=== PATIENT | male | born 1940 | race Caucasian/White ===

== ENCOUNTER → 2017-09-05 09:15 | Outpatient (CLI) | payer MEDICARE, OTHER, SELFPAY ==
--- NOTE | 2017-09-05 09:45 | RAD_ITS ---
STUDY: X-RAY - ESOPHAGUS (BARIUM SWALLOW) WITH FLUOROSCOPY REASON FOR EXAM: Male, 77 years old. Several year history of dysphagia. TECHNIQUE: 21 view(s) of the esophagus were obtained following swallowing of barium. FLUOROSCOPY TIME (if supplied): (0:41) minutes/seconds COMPARISON: None. FINDINGS: There is no demonstrated esophageal foreign body. There is no demonstrated stricture or mucosal abnormality. Normal gastroesophageal junction, without a demonstrated hiatal hernia. The patient ingested a 12 mm tablet of barium without any difficulty. There is atherosclerotic calcification of the aortic arch with tortuosity of the descending aorta. Normal visualized pulmonary parenchyma. Normal visualized osseous structures of the thorax. RAD/Esophagus Only IMPRESSION: No acute abnormality is seen. Electronically Signed: Reuben Painting MD at 12:58 EST Tel [phone], Service support ,
== END ==
PROVIDERS: Family Provider Family Medicine; PCP Family Medicine; Visit Provider Family Medicine
DX: R13.10 Dysphagia, unspecified (principal)
CPT/HCPCS: 74220

== ENCOUNTER 2017-09-05 10:03 | Outpatient (RCR) | payer MEDICARE, OTHER, SELFPAY ==
[2017-09-05 11:07] LABS: International Normalized Ratio 1.8; Prothrombin Time (Protime)PT. 20.6 SECONDS (11.7-14.9)
== END 2017-09-05 11:00 | disposition home or self-care (01) ==
LOC: LAB 10:03
PROVIDERS: Family Provider Family Medicine; PCP Family Medicine; Visit Provider Internal Medicine Cardiovascular Disease
DX: I48.2 Chronic atrial fibrillation (principal); Z79.01 Long term (current) use of anticoagulants
CPT/HCPCS: 36415; 85610

== ENCOUNTER 2017-10-24 15:11 | Outpatient (RCR) | payer MEDICARE, OTHER, SELFPAY ==
--- NOTE | 2017-10-24 15:16 | RAD_ITS ---
STUDY: X-RAY CHEST REASON FOR EXAM: Male, 77 years old. COPD TECHNIQUE: PA and lateral views of the chest. COMPARISON: August 22, 2016. FINDINGS: Stable elevation of the right hemidiaphragm. There is no visualized acute focal consolidation or pleural effusion. There are stable linear densities in the lingula suggesting scarring or atelectasis. There is no demonstrated pleural abnormality. Normal size heart. Normal mediastinum and evelin. Normal visualized pulmonary arteries. There is atherosclerotic calcification of the aortic arch with tortuosity. There are mild degenerative changes of the visualized thoracic spine. Normal visualized ribs, clavicles, and shoulders. There is no demonstrated abnormality of the visualized soft tissue structures of the upper abdomen. RAD/Chest PA and Lateral IMPRESSION: Stable chest. No visualized acute focal infiltrate. Electronically Signed: Sheila Cross MD at 16:10 EDT Tel , Service support ,
[2017-10-24 18:30] LABS: International Normalized Ratio 2.1
== END 2017-10-24 16:00 | disposition home or self-care (01) ==
LOC: MTLAB 15:11
PROVIDERS: Family Provider Family Medicine; PCP Family Medicine; Visit Provider Internal Medicine Cardiovascular Disease
DX: J44.9 Chronic obstructive pulmonary disease, unspecified (principal); I48.2 Chronic atrial fibrillation; Z79.01 Long term (current) use of anticoagulants
CPT/HCPCS: 36415; 71046; 85610

== ENCOUNTER 2017-11-26 16:49 | Outpatient (RCR) | payer MEDICARE, OTHER, SELFPAY ==
[2017-11-26 17:38] LABS: International Normalized Ratio 2.4; Prothrombin Time (Protime)PT. 26.4 SECONDS (11.7-14.9)
== END 2017-11-26 17:00 | disposition home or self-care (01) ==
LOC: LAB 16:49
PROVIDERS: Family Provider Family Medicine; PCP Family Medicine; Visit Provider Internal Medicine Cardiovascular Disease
DX: I48.2 Chronic atrial fibrillation (principal); Z79.01 Long term (current) use of anticoagulants
CPT/HCPCS: 36415; 85610

== ENCOUNTER → 2017-12-26 16:05 | Outpatient (CLI) | payer MEDICARE, OTHER, SELFPAY ==
[2017-12-26 17:42] LABS: International Normalized Ratio 2.7; Prothrombin Time (Protime)PT. 28.5 SECONDS (11.7-14.9)
[2017-12-26 17:47] LABS: Hematocrit 45.4 % (40-54); Hemoglobin 15.5 g/dl (13.0-16.5); Mean Corp Hgb Conc 34.1 g/gl (32-36); Mean Corpuscular Hgb 34.1 pg (27.0-32.0); Platelet Count 193 K/mm3 (150-450); RBC Distribution Width CV 13.4 % (11.6-14.6); RBC Distribution Width SD 48.7 fl (35.1-43.9); Red Blood Count 4.54 M/mm3 (4.6-6.2); White Blood Count 7.5 K/mm3 (4.4-11.0)
[2017-12-26 17:49] LABS: Scan Indicated on CBC? Y/N NO
[2017-12-26 17:51] LABS: Hemoglobin A1c 5.9 % (4.2-6.3)
[2017-12-26 17:55] LABS: ALB/GLOB Ratio 0.7 RATIO (0.9-2.4); AST(SGOT) 13 U/L (15-37); Alanine Aminotransfer ALT/SGPT 26 U/L (16-61); Albumin, Serum 3.1 g/dL (3.2-5.0); Alkaline Phosphatase 52 U/L (45-117); Anion Gap 9 (5-15); BUN 15 mg/dL (7-18); BUN/Creat Ratio 16.5 RATIO (10-20); Calcium,Total 8.9 mg/dL (8.5-10.1); Chloride 99 mmol/L (98-107); Creatinine, Serum 0.91 mg/dL (0.70-1.30); EST Glomerular Filtration Rate 86 mL/min (>60); Est Glom Filt Rate - Afr Amer 104 mL/min (>60); Globulin 4.2 g/dL (2.2-4.2); Glucose 133 mg/dL (74-106); Potassium 4.5 mmol/L (3.5-5.1); Protein, Total 7.3 g/dL (6.4-8.2); Sodium Level 135 mmol/L (136-145); Thyroid Stim Hormone (TSH) 0.48 uIU/mL (0.358-3.74)
== END ==
PROVIDERS: Internal Medicine Cardiovascular Disease; Family Provider Family Medicine; PCP Family Medicine; Visit Provider Family Medicine
DX: M25.50 Pain in unspecified joint (principal); I48.2 Chronic atrial fibrillation; Z79.01 Long term (current) use of anticoagulants
CPT/HCPCS: 36415; 80053; 82306; 83036; 84443; 85027; 85610

== ENCOUNTER 2018-03-26 10:14 | Outpatient (RCR) | payer MEDICARE, OTHER, SELFPAY ==
[2018-03-26 12:14] LABS: International Normalized Ratio 2.4
[2018-03-26 18:02] LABS: Absolute Lymphocyte Count 1.35 X10^3/ul (0.83-4.51); Absolute Neutrophil Count 3.1 X10^3/uL (2.0-7.7); Basophil# 0.05 X10^3/uL; Basophil% 0.9 % (0-1); Eosinophil# 0.58 X10^3/uL; Eosinophils% 10.4 % (0-5); Hematocrit 44.2 % (40-54); Lymphocyte # 1.35 X10^3/ul (4.0); Lymphocyte % 24.1 % (19-41); Mean Corp Hgb Conc 36.2 g/gl (32-36); Mean Corpuscular Hgb 35.3 pg (27.0-32.0); Mean Corpuscular Volume 97.6 fL (80-94); Monocyte# 0.49 X10^3/uL; Monocyte% 8.8 % (0-10); Neutrophil # 3.12 X10^3/uL (2.7-7.7); Neutrophil % 55.6 % (47-70); Platelet Count 152 K/mm3 (150-450); RBC Distribution Width CV 14.1 % (11.6-14.6); RBC Distribution Width SD 50.6 fl (35.1-43.9); Red Blood Count 4.53 M/mm3 (4.6-6.2); White Blood Count 5.6 K/mm3 (4.4-11.0)
[2018-03-26 18:03] LABS: POSITIVE COUNT NO; POSITIVE DIFFERENTIAL NO; POSITIVE MORPHOLOGY NO
[2018-03-26 18:33] LABS: AST(SGOT) 13 U/L (15-37); Alanine Aminotransfer ALT/SGPT 24 U/L (16-61); Albumin, Serum 3.4 g/dL (3.2-5.0); Alkaline Phosphatase 50 U/L (45-117); Anion Gap 8 (5-15); BUN 17 mg/dL (7-18); BUN/Creat Ratio 23.3 RATIO (10-20); Calcium,Total 8.6 mg/dL (8.5-10.1); Chloride 98 mmol/L (98-107); Cholesterol 200 mg/dL (200); Creatinine, Serum 0.73 mg/dL (0.70-1.30); EST Glomerular Filtration Rate 110 mL/min (>60); Est Glom Filt Rate - Afr Amer 133 mL/min (>60); Globulin 3.5 g/dL (2.2-4.2); Glucose 75 mg/dL (74-106); High Density Lipoprotein 38 mg/dL; Potassium 4.4 mmol/L (3.5-5.1); Protein, Total 6.9 g/dL (6.4-8.2); Sodium Level 133 mmol/L (136-145); Triglycerides 370 mg/dL; Very Low Density Lipoprotein 74 mg/dL (5-40)
== END 2018-03-26 11:00 | disposition home or self-care (01) ==
LOC: LAB 10:14
PROVIDERS: Family Provider Family Medicine; PCP Family Medicine; Visit Provider Internal Medicine Cardiovascular Disease
DX: I48.2 Chronic atrial fibrillation (principal); I10 Essential (primary) hypertension; J44.9 Chronic obstructive pulmonary disease, unspecified; Z79.01 Long term (current) use of anticoagulants
CPT/HCPCS: 36415; 80053; 80061; 85025; 85610

== ENCOUNTER → 2018-03-26 16:49 | Outpatient (CLI) | payer MEDICARE, OTHER, SELFPAY ==
--- NOTE | 2018-03-26 16:52 | RAD_ITS ---
STUDY: X-RAY - LEFT ELBOW REASON FOR EXAM: Male, 77 years old. Pain TECHNIQUE: 3 view(s) of the elbow. COMPARISON: None. FINDINGS: Degenerative spurring of the distal and of the humerus. Normal visualized radius. Prominent olecranon spur of the ulna. Normal radiocapitellar and ulnotrochlear articulations. Focal prominence posterior to the ulna within the soft tissue. RAD/Elbow min 3 Views IMPRESSION: Degenerative changes of the elbow. Electronically Signed: Patrick Wolff DO at 20:24 EDT Tel [phone], Service support ,
== END ==
PROVIDERS: Family Provider Family Medicine; PCP Family Medicine; Visit Provider Surgery
DX: M25.522 Pain in left elbow (principal); D49.2 Neoplasm of unspecified behavior of bone, soft tissue, and skin; I48.2 Chronic atrial fibrillation; I10 Essential (primary) hypertension; J44.9 Chronic obstructive pulmonary disease, unspecified; Z79.01 Long term (current) use of anticoagulants
CPT/HCPCS: 36415; 73080; 80053; 80061; 85025; 85610

== ENCOUNTER 2018-05-28 16:46 | Outpatient (RCR) | payer MEDICARE, OTHER, SELFPAY ==
[2018-05-28 15:45] VITALS: BMI 29.9
[2018-05-28 17:30] LABS: International Normalized Ratio 1.5; Prothrombin Time (Protime)PT. 18.5 SECONDS (11.7-14.9)
== END 2018-06-09 10:51 | disposition home or self-care (01) ==
LOC: LAB 16:46
PROVIDERS: Family Provider Family Medicine; PCP Family Medicine; Referring Provider Internal Medicine Cardiovascular Disease; Visit Provider Internal Medicine Cardiovascular Disease
DX: I48.2 Chronic atrial fibrillation (principal); Z79.01 Long term (current) use of anticoagulants
CPT/HCPCS: 36415; 85610

== ENCOUNTER → 2018-06-11 13:36 | Outpatient (CLI) | payer MEDICARE, OTHER, SELFPAY ==
[2018-05-28 15:45] VITALS: BMI 29.9
--- NOTE | 2018-06-11 13:38 | ECHOD_ITS ---
Reason For Study: AFIB Procedure This was a 2D Doppler, Color Flow transthoracic echocardiogram. The study was technically difficult. Exam performed in department. Left Ventricle Normal LV size. The estimated ejection fraction is 50 %. Left ventricular systolic function is lower limits of normal. Unable to assess diastolic dysfunction due to arrhythmia. No regional wall motion abnormalities noted. Right Ventricle Normal RV size. Normal systolic function. Atria Normal left atrium. Normal right atrium. Mitral Valve Normal mitral valve. Tricuspid Valve Normal tricuspid valve. Mild (1+) tricuspid valve insufficiency. Pulmonary artery systolic pressure is 32 mmHg. Aortic Valve Trisinus/trileaflet aortic valve. Mild focal aortic valve calcification. Pulmonic Valve Normal pulmonic valve. Great Vessels Normal aortic root. The pulmonary artery is normal size. Normal inferior vena cava. Pericardium/Pleural No pericardial effusion. MMode/2D Measurements & Calculations LVIDd: 4.1 cm IVSd: 1.2 cm Ao root diam: 3.3 cm LVIDs: 3.0 cm LVPWd: 1.2 cm RVDd: 3.7 cm FS: 27.5 % LAV(MOD-bp): 54.4 ml LA A4 area: 15.7 cm2 LA dimension(2D): 5.0 cm LAV(MOD-bp) Indexed: 26.6 ml/m2 LAV(MOD-sp2): 56.8 ml LAV(MOD-sp4): 41.1 ml RA A4 area: 19.5 cm2 Time Measurements MV dec time: 0.20 sec Doppler Measurements & Calculations MV E max stephanie: 105.8 cm/sec Ao V2 max: 144.8 cm/sec LV V1 max: 87.2 cm/sec Ao max P.4 mmHg LV V1 max P.1 mmHg PA V2 max: 77.9 cm/sec PI end-d stephanie: 93.3 cm/sec TR max stephanie: 265.4 cm/sec TR max P.6 mmHg Interpretation Summary Normal LV size. The estimated ejection fraction is 50 %. Left ventricular systolic function is lower limits of normal. Unable to assess diastolic dysfunction due to arrhythmia. Ordering Physician: Javier Vasquez Referring Physician: HELLEN ESCAMILLA Performed By: Mamie Cordero, DARIUS, RVT
== END ==
PROVIDERS: Family Provider Family Medicine; PCP Family Medicine; Referring Provider Internal Medicine Cardiovascular Disease; Visit Provider Internal Medicine Cardiovascular Disease
DX: I50.32 Chronic diastolic (congestive) heart failure (principal); I48.2 Chronic atrial fibrillation; Z79.01 Long term (current) use of anticoagulants
CPT/HCPCS: 36415; 85610; 93306

== ENCOUNTER 2018-06-11 14:38 | Outpatient (RCR) | payer MEDICARE, OTHER, SELFPAY ==
[2018-06-11 17:25] LABS: Prothrombin Time (Protime)PT. 22.3 SECONDS (11.7-14.9)
== END 2018-06-11 15:00 | disposition home or self-care (01) ==
LOC: LAB 14:38
PROVIDERS: Family Provider Family Medicine; PCP Family Medicine; Referring Provider Internal Medicine Cardiovascular Disease; Visit Provider Internal Medicine Cardiovascular Disease
DX: I48.2 Chronic atrial fibrillation (principal); Z79.01 Long term (current) use of anticoagulants
CPT/HCPCS: 36415; 85610

== ENCOUNTER 2018-07-10 16:08 | Outpatient (RCR) | payer MEDICARE, OTHER, SELFPAY ==
[2018-07-10 15:06] VITALS: BMI 29.9
[2018-07-10 17:54] LABS: Absolute Lymphocyte Count 1.41 X10^3/ul (0.83-4.51); Absolute Neutrophil Count 3.2 X10^3/uL (2.0-7.7); Basophil# 0.04 X10^3/uL; Basophil% 0.7 % (0-1); Eosinophil# 0.53 X10^3/uL; Eosinophils% 9.4 % (0-5); Hematocrit 47.9 % (40-54); Hemoglobin 15.9 g/dl (13.0-16.5); Lymphocyte # 1.41 X10^3/ul (4.0); Lymphocyte % 24.9 % (19-41); Mean Corp Hgb Conc 33.2 g/gl (32-36); Mean Corpuscular Hgb 33.6 pg (27.0-32.0); Mean Corpuscular Volume 101.3 fL (80-94); Mean Platelet Vol. 11.3 fl (6.2-12.0); Monocyte# 0.46 X10^3/uL; Monocyte% 8.1 % (0-10); Neutrophil # 3.21 X10^3/uL (2.7-7.7); Neutrophil % 56.7 % (47-70); Platelet Count 161 K/mm3 (150-450); RBC Distribution Width CV 14.1 % (11.6-14.6); RBC Distribution Width SD 52.3 fl (35.1-43.9); Red Blood Count 4.73 M/mm3 (4.6-6.2); White Blood Count 5.7 K/mm3 (4.4-11.0)
[2018-07-10 17:55] LABS: POSITIVE COUNT NO; POSITIVE DIFFERENTIAL NO; POSITIVE MORPHOLOGY NO
[2018-07-10 18:07] LABS: International Normalized Ratio 2.1; Prothrombin Time (Protime)PT. 23.8 SECONDS (11.7-14.9)
[2018-07-10 18:19] LABS: AST(SGOT) 14 U/L (15-37); Alanine Aminotransfer ALT/SGPT 26 U/L (16-61); Albumin, Serum 3.5 g/dL (3.2-5.0); Alkaline Phosphatase 50 U/L (45-117); Anion Gap 7 (5-15); BUN 12 mg/dL (7-18); BUN/Creat Ratio 16.2 RATIO (10-20); Calcium,Total 8.9 mg/dL (8.5-10.1); Chloride 100 mmol/L (98-107); Creatinine, Serum 0.74 mg/dL (0.70-1.30); EST Glomerular Filtration Rate 108 mL/min (>60); Est Glom Filt Rate - Afr Amer 131 mL/min (>60); Globulin 3.5 g/dL (2.2-4.2); Glucose 74 mg/dL (74-106); Potassium 4.5 mmol/L (3.5-5.1); Sodium Level 138 mmol/L (136-145); Thyroid Stim Hormone (TSH) 0.62 uIU/mL (0.358-3.74)
[2018-07-10 18:41] LABS: Microalbumin,Random Urine 42.3 mg/L (NO RANGE EST.); Microalbumin:Creatinine Ratio 254.8 mg/g CRE (<30 mg/g CRE)
== END 2018-07-10 17:00 | disposition home or self-care (01) ==
LOC: LAB 16:08
PROVIDERS: Family Provider Family Medicine; PCP Family Medicine; Referring Provider Internal Medicine Cardiovascular Disease; Visit Provider Internal Medicine Cardiovascular Disease
DX: I48.2 Chronic atrial fibrillation (principal); Z79.01 Long term (current) use of anticoagulants
CPT/HCPCS: 36415; 80053; 82043; 82570; 84443; 85025; 85610

== ENCOUNTER → 2018-07-21 16:43 | Outpatient (CLI) | payer MEDICARE, OTHER, SELFPAY ==
[2018-07-10 15:06] VITALS: BMI 29.9
[2018-07-21 16:47] LABS: Bacteria 0 SEEN /hpf (None Seen); Mucous, Urine 0 SEEN /hpf (<or=2+)
[2018-07-21 17:44] LABS: Color, Urine Yellow (Yellow); Glucose, Dipstick Normal (Normal); Ketone-Dipstick Negative (Negative); Leukocyte Esterase-Dipstick Negative /ul (Negative); Nitrite-Dipstick Negative (Negative); Occult Blood-Urine Negative /ul (Negative); Protein-Dipstick Negative (Negative); Urine Bilirubin Dipstick Negative (Negative); Urine Clarity Clear (Clear); Urine Urobilinogen Normal (Normal)
[2018-07-21 18:07] LABS: Red Blood Cells-Urine 0-5 SEEN /hpf (0-5); Squamous Epithelial Cells - UA 0-5 SEEN /hpf (0-5)
[2018-07-21 18:08] LABS: White Blood Cells 0-5 SEEN /hpf (0-5)
== END ==
PROVIDERS: Family Provider Family Medicine; PCP Family Medicine; Visit Provider Family Medicine
DX: R80.9 Proteinuria, unspecified (principal)
CPT/HCPCS: 81001; 87086

== ENCOUNTER 2018-10-21 16:25 | Outpatient (RCR) | payer MEDICARE, OTHER, SELFPAY ==
[2018-10-09 14:50] VITALS: BMI 29.9
[2018-10-21 18:10] LABS: International Normalized Ratio 2.4
[2018-10-21 18:31] LABS: AST(SGOT) 17 U/L (15-37); Alanine Aminotransfer ALT/SGPT 23 U/L (16-61); Albumin, Serum 3.4 g/dL (3.2-5.0); Alkaline Phosphatase 67 U/L (45-117); Bilirubin, Direct 0.09 mg/dL (0.00-0.30); Cholesterol 186 mg/dL (200); High Density Lipoprotein 37 mg/dL; Protein, Total 7.4 g/dL (6.4-8.2); Triglycerides 243 mg/dL; Very Low Density Lipoprotein 49 mg/dL (5-40)
== END 2018-11-04 16:00 | disposition home or self-care (01) ==
LOC: LAB 16:25
PROVIDERS: Family Provider Family Medicine; PCP Family Medicine; Referring Provider Internal Medicine Cardiovascular Disease; Visit Provider Internal Medicine Cardiovascular Disease
DX: I48.2 Chronic atrial fibrillation (principal); Z79.01 Long term (current) use of anticoagulants; E78.5 Hyperlipidemia, unspecified
CPT/HCPCS: 36415; 80061; 80076; 85610

== ENCOUNTER → 2018-11-13 17:34 | Outpatient (CLI) | payer MEDICARE, OTHER, SELFPAY ==
--- NOTE | 2018-11-13 | LES_PTH ---
PATIENT: NARESH HOLLIS LOC: [facility] U#:[id number] AGE/SX: 84/M ROOM: RE11/13/[address]: Dr. Ayan Dodd MD : 1940 BED: DIS: SPEC #: [id number] RECD: 11/13/18 17:34 STATUS: DEMETRIA WILLIE #: [id number] DAVIS: 11/13/18 00:[address]: Ayan Dodd DEPT: SURGICAL PATHOLOGY RECD BY: Kartik Stark ENTERED: 11/14/18 09:39 SP TYPE: Lesion OTHR DR: Dr. Marcos Lam MD Tissues: Skin of arm Procedures: Surgery Specimen Level IV HEADER OPERATION: Excision lesion left medial elbow PRE-OP DIAGNOSIS: Enlarged lesion left medial elbow TISSUE SUBMITTED: Left medial elbow MICROSCOPIC DIAGNOSIS Left medial elbow lesion, excisional biopsy: Mild actinic keratosis and solar elastosis. Focal changes suggestive of ruptured and inflamed epidermal inclusion cyst. Negative for malignancy. SJ:art 11/17/18 MICROSCOPIC DESCRIPTION Slides are reviewed. GROSS DESCRIPTION Received in fixative is one container labeled with the patient's name and designated left medial elbow. The specimen consists of multiple fragments of skin and soft tissue that in aggregate measure 2.5 x 2 x 0.3 cm. The entire specimen is submitted in one cassette. / FELIX:art 11/14/18 TC:5 CPT: 12302
[2018-11-13 15:06] VITALS: BMI 29.9
== END ==
PROVIDERS: Family Provider Family Medicine; PCP Family Medicine; Referring Provider Surgery; Visit Provider Surgery
DX: D49.2 Neoplasm of unspecified behavior of bone, soft tissue, and skin (principal); M77.02 Medial epicondylitis, left elbow
CPT/HCPCS: 88305

== ENCOUNTER 2018-12-04 15:43 | Outpatient (RCR) | payer MEDICARE, OTHER, SELFPAY ==
[2018-10-09 14:50] VITALS: BMI 29.9
[2018-11-20 14:51] VITALS: BMI 29.9
[2018-11-20 17:49] LABS: International Normalized Ratio 1.7; Prothrombin Time (Protime)PT. 19.9 SECONDS (11.7-14.9)
[2018-12-05 12:10] LABS: Prothrombin Time Fingerstick 18.2 SEC (11.9-14.4)
== END 2018-12-04 16:45 | disposition home or self-care (01) ==
LOC: LAB 15:43
PROVIDERS: Family Provider Family Medicine; PCP Family Medicine; Referring Provider Internal Medicine Cardiovascular Disease; Visit Provider Internal Medicine Cardiovascular Disease
DX: I48.2 Chronic atrial fibrillation (principal); Z79.01 Long term (current) use of anticoagulants
CPT/HCPCS: 36415; 36416; 85610

== ENCOUNTER 2018-12-24 16:14 | Outpatient (RCR) | payer MEDICARE, OTHER, SELFPAY ==
[2018-12-04 15:10] VITALS: BMI 29.9
[2018-12-11 15:57] VITALS: BMI 29.3
== END 2018-12-24 17:00 | disposition home or self-care (01) ==
LOC: LAB 16:14
PROVIDERS: Family Provider Family Medicine; PCP Family Medicine; Referring Provider Internal Medicine Cardiovascular Disease; Visit Provider Internal Medicine Cardiovascular Disease
DX: I48.2 Chronic atrial fibrillation (principal); Z79.01 Long term (current) use of anticoagulants
CPT/HCPCS: 36415; 85610

== ENCOUNTER → 2019-01-26 | Outpatient (CLI) | payer MEDICARE, OTHER, SELFPAY ==
[2018-12-11 15:57] VITALS: BMI 29.3
[2019-01-26 17:37] LABS: International Normalized Ratio 2.6; Prothrombin Time (Protime)PT. 27.8 SECONDS (11.7-14.9)
== END | disposition home or self-care (01) ==
PROVIDERS: Internal Medicine Cardiovascular Disease; Family Provider Family Medicine; PCP Family Medicine; Visit Provider Family Medicine
DX: I48.2 Chronic atrial fibrillation (principal); Z79.01 Long term (current) use of anticoagulants
CPT/HCPCS: 36415; 85610

== ENCOUNTER → 2019-05-26 15:44 | Outpatient (CLI) | payer MEDICARE, OTHER, SELFPAY ==
[2019-01-29 15:36] VITALS: BMI 29.3
[2019-05-26 17:37] LABS: Hematocrit 47.3 % (40-54); Mean Corp Hgb Conc 33.8 g/dL (32-36); Mean Corpuscular Volume 100.4 fL (80-94); Mean Platelet Vol. 11.2 fl (6.2-12.0); Platelet Count 222 K/mm3 (150-450); RBC Distribution Width CV 13.1 % (11.6-14.6); RBC Distribution Width SD 48.5 fl (35.1-43.9); Red Blood Count 4.71 M/mm3 (4.6-6.2); White Blood Count 6.4 K/mm3 (4.4-11.0)
[2019-05-26 18:02] LABS: ALB/GLOB Ratio 0.9 RATIO (0.9-2.4); AST(SGOT) 14 U/L (15-37); Alanine Aminotransfer ALT/SGPT 24 U/L (16-61); Albumin, Serum 3.5 g/dL (3.2-5.0); Alkaline Phosphatase 51 U/L (45-117); Anion Gap 8 (5-15); BUN 12 mg/dL (7-18); BUN/Creat Ratio 16.5 RATIO (10-20); Calcium,Total 8.7 mg/dL (8.5-10.1); Chloride 95 mmol/L (98-107); Creatinine, Serum 0.73 mg/dL (0.70-1.30); EST Glomerular Filtration Rate 111 mL/min (>60); Est Glom Filt Rate - Afr Amer 134 mL/min (>60); Globulin 3.8 g/dL (2.2-4.2); Glucose 84 mg/dL (74-106); Magnesium 1.9 mg/dL (1.6-2.6); Potassium 4.4 mmol/L (3.5-5.1); Protein, Total 7.3 g/dL (6.4-8.2); Sodium Level 132 mmol/L (136-145); Thyroid Stim Hormone (TSH) 1.01 uIU/mL (0.358-3.74)
[2019-05-26 18:13] LABS: Microalbumin,Random Urine 76.4 mg/L (NO RANGE EST.); Microalbumin:Creatinine Ratio 147.8 mg/g CRE (<30 mg/g CRE)
[2019-06-03 10:35] LABS: Fats, Neutral Normal (.); Fats, Total Normal (.)
== END ==
PROVIDERS: Family Provider Family Medicine; PCP Family Medicine; Referring Provider Family Medicine; Visit Provider Family Medicine
DX: R42 Dizziness and giddiness (principal); I10 Essential (primary) hypertension; R19.7 Diarrhea, unspecified
CPT/HCPCS: 36415; 80053; 82043; 82570; 82705; 83735; 84443; 85027

== ENCOUNTER 2019-05-28 15:05 | Outpatient (RCR) | payer MEDICARE, OTHER, SELFPAY ==
[2018-12-11 15:57] VITALS: BMI 29.3
[2019-01-29 15:36] VITALS: BMI 29.3
--- NOTE | 2019-05-28 15:11 | RAD_ITS ---
STUDY: X-RAY CHEST REASON FOR EXAM: Male, 78 years old. History of COPD. TECHNIQUE: PA and lateral views of the chest. COMPARISON: 10/24/2017. FINDINGS: There is elevation of the right hemidiaphragm. There is mild bilateral basilar atelectasis, remainder of the lungs are clear and expanded. There is no demonstrated pleural abnormality. Normal size heart. Normal mediastinum and evelin. Normal visualized pulmonary arteries. There is atherosclerotic calcification of the aortic arch with tortuosity. There is demineralization of the osseous structures. There is degenerative osteoarthritis of the bilateral shoulders. There is no demonstrated abnormality of the visualized soft tissue structures of the upper abdomen. RAD/Chest PA and Lateral IMPRESSION: Mild bilateral basilar atelectasis, otherwise no acute cardiopulmonary process seen. Electronically Signed: Sherin Hampton MD at 2:13 EST , Service support ,
[2019-05-28 15:52] LABS: International Normalized Ratio 3.2; Prothrombin Time (Protime)PT. 33.1 SECONDS (11.7-14.9)
--- NOTE | 2019-05-28 16:27 | RAD_ITS ---
STUDY: X-RAY - ABDOMEN/PELVIS REASON FOR EXAM: Male, 78 years old. Diarrhea TECHNIQUE: AP supine and upright views of the abdomen and pelvis. COMPARISON: None. FINDINGS: Normal visualized lung bases. Multiple air-fluid levels throughout the small bowel. Gas noted in the colon. Elevated right hemidiaphragm. Possible gallbladder sludge. There is no demonstrated free abdominal air. The visualized liver, spleen and kidneys are grossly normal in size and morphology. Normal soft tissue structures. Normal visualized osseous structures. RAD/Abd Inc Decub and/or Erect IMPRESSION: Ileus. Possible gallbladder sludge versus other soft tissue density right upper quadrant. Electronically Signed: Louie Jorgensen MD at 23:54 EST , Service support ,
[2019-05-28 17:46] LABS: Anion Gap 4 (5-15); BUN 14 mg/dL (7-18); BUN/Creat Ratio 17.2 RATIO (10-20); Calcium,Total 8.9 mg/dL (8.5-10.1); Chloride 96 mmol/L (98-107); Creatinine, Serum 0.82 mg/dL (0.70-1.30); EST Glomerular Filtration Rate 97 mL/min (>60); Est Glom Filt Rate - Afr Amer 117 mL/min (>60); Glucose 91 mg/dL (74-106); Potassium 4.5 mmol/L (3.5-5.1); Sodium Level 133 mmol/L (136-145)
== END 2019-05-28 18:00 | disposition home or self-care (01) ==
LOC: MTLAB 15:05
PROVIDERS: Family Provider Family Medicine; PCP Family Medicine; Referring Provider Internal Medicine Cardiovascular Disease; Visit Provider Internal Medicine Cardiovascular Disease
DX: I48.20 Chronic atrial fibrillation, unspecified (principal); Z79.01 Long term (current) use of anticoagulants; R19.7 Diarrhea, unspecified; R07.9 Chest pain, unspecified
CPT/HCPCS: 36415; 71046; 74019; 80048; 85610

== ENCOUNTER 2019-07-09 15:27 | Outpatient (RCR) | payer MEDICARE, OTHER, SELFPAY ==
[2019-01-29 15:36] VITALS: BMI 29.3
[2019-07-09 15:45] LABS: Prothrombin Time Fingerstick 30.5 SEC (11.9-14.4)
== END 2019-07-09 18:00 | disposition home or self-care (01) ==
LOC: MTLAB 15:27
PROVIDERS: Family Provider Family Medicine; PCP Family Medicine; Referring Provider Internal Medicine Cardiovascular Disease; Visit Provider Internal Medicine Cardiovascular Disease
DX: I48.20 Chronic atrial fibrillation, unspecified (principal); Z79.01 Long term (current) use of anticoagulants
CPT/HCPCS: 36416; 85610

== ENCOUNTER 2019-08-12 14:23 | Outpatient (RCR) | payer MEDICARE, OTHER, SELFPAY ==
[2019-07-16 13:10] VITALS: BMI 29.3
[2019-08-12 15:52] LABS: International Normalized Ratio 2.6; Prothrombin Time (Protime)PT. 27.6 SECONDS (11.7-14.9)
== END 2019-08-12 18:00 | disposition home or self-care (01) ==
LOC: MTLAB 14:23
PROVIDERS: Family Provider Family Medicine; PCP Family Medicine; Referring Provider Internal Medicine Cardiovascular Disease; Visit Provider Internal Medicine Cardiovascular Disease
DX: I48.20 Chronic atrial fibrillation, unspecified (principal); Z79.01 Long term (current) use of anticoagulants
CPT/HCPCS: 36415; 85610

== ENCOUNTER → 2019-11-11 | Outpatient (CLI) | payer MEDICARE, OTHER, SELFPAY ==
[2019-07-16 13:10] VITALS: BMI 29.3
[2019-11-11 17:52] LABS: International Normalized Ratio 2.5; Prothrombin Time (Protime)PT. 26.4 SECONDS (11.7-14.9)
== END | disposition home or self-care (01) ==
LOC: MFPLAB 15:47
PROVIDERS: PCP Family Medicine; Visit Provider Internal Medicine Cardiovascular Disease
DX: I48.20 Chronic atrial fibrillation, unspecified (principal); Z79.01 Long term (current) use of anticoagulants
CPT/HCPCS: 36415; 85610

== ENCOUNTER 2019-12-14 16:29 | Outpatient (RCR) | payer MEDICARE, OTHER, SELFPAY ==
[2019-07-16 13:10] VITALS: BMI 29.3
[2019-12-14 16:45] LABS: Prothrombin Time Fingerstick 24.8 SEC (11.9-14.4)
== END 2019-12-14 18:00 | disposition home or self-care (01) ==
LOC: MTLAB 16:29
PROVIDERS: Family Provider Family Medicine; PCP Family Medicine; Referring Provider Internal Medicine Cardiovascular Disease; Visit Provider Internal Medicine Cardiovascular Disease
DX: I48.20 Chronic atrial fibrillation, unspecified (principal); Z79.01 Long term (current) use of anticoagulants
CPT/HCPCS: 36416; 85610

== ENCOUNTER 2020-03-08 15:56 | Outpatient (RCR) | payer MEDICARE, OTHER, SELFPAY ==
[2019-07-16 13:10] VITALS: BMI 29.3
--- NOTE | 2020-03-08 15:59 | RAD_ITS ---
STUDY: X-RAY - THORACIC SPINE REASON FOR EXAM: Male, 79 years old. BACK PAIN, NO INJURY TECHNIQUE: 2 view(s) of the thoracic spine were obtained. COMPARISON: None. FINDINGS: Normal kyphosis of the thoracic spine. There is no substantial scoliosis. Normal thoracic vertebrae with mild spurring at the endplates. Normal disc space heights. The soft tissue structures are unremarkable. RAD/Thoracic Spine 3 Views IMPRESSION: Degenerative changes of the thoracic spine. Electronically Signed: Patrick Wolff DO at 21:26 EDT Tel [phone], Service support ,
--- NOTE | 2020-03-08 16:00 | RAD_ITS ---
STUDY: X-RAY - LUMBAR SPINE REASON FOR EXAM: Male, 79 years old. LOW BACK PAIN, NO INJURY TECHNIQUE: 4 view(s) of the lumbar spine were obtained. COMPARISON: None FINDINGS: Normal lumbar lordosis. There is no substantial scoliosis. There is a normal alignment of the vertebrae. Normal vertebral bodies with mild spurring at the endplates. Normal disc space heights. The soft tissue structures are unremarkable. Calcified aorta. RAD/L/S Spine Min 4 Views IMPRESSION: Degenerative changes of the lumbar spine. Electronically Signed: Patrick Wolff DO at 21:24 EDT Tel [phone], Service support ,
[2020-03-08 18:02] LABS: Absolute Neutrophil Count 3.7 X10^3/uL (2.0-7.7); Basophil% 1.4 % (0-1); Eosinophil# 1.22 X10^3/uL; Eosinophils% 17.3 % (0-5); Hematocrit 49.4 % (40-54); Hemoglobin 16.2 g/dL (13.0-16.5); Lymphocyte % 21.3 % (19-41); Mean Corp Hgb Conc 32.8 g/dL (32-36); Mean Corpuscular Hgb 32.9 pg (27.0-32.0); Mean Corpuscular Volume 100.2 fL (80-94); Mean Platelet Vol. 11.6 fl (6.2-12.0); Monocyte# 0.52 X10^3/uL; Monocyte% 7.4 % (0-10); NRBC Flagged by Analyzer 0 % (0-5); Neutrophil # 3.68 X10^3/uL (2.7-7.7); Neutrophil % 52.3 % (47-70); Platelet Count 194 K/mm3 (150-450); RBC Distribution Width CV 13.8 % (11.6-14.6); RBC Distribution Width SD 50.9 fl (35.1-43.9); Red Blood Count 4.93 M/mm3 (4.6-6.2)
[2020-03-08 18:23] LABS: ALB/GLOB Ratio 0.9 RATIO (0.9-2.4); AST(SGOT) 15 U/L (15-37); Alanine Aminotransfer ALT/SGPT 23 U/L (16-61); Albumin, Serum 3.6 g/dL (3.2-5.0); Alkaline Phosphatase 60 U/L (45-117); Anion Gap 3 (5-15); BUN 13 mg/dL (7-18); BUN/Creat Ratio 16.4 RATIO (10-20); Chloride 100 mmol/L (98-107); EST Glomerular Filtration Rate 99 mL/min (>60); Est Glom Filt Rate - Afr Amer 120 mL/min (>60); Glucose 95 mg/dL (74-106); Potassium 4.5 mmol/L (3.5-5.1); Protein, Total 7.6 g/dL (6.4-8.2); Sodium Level 133 mmol/L (136-145)
[2020-03-08 18:30] LABS: Erythrocyte Sedimentation Rate 25 mm/hr (0-20)
== END 2020-03-08 18:00 | disposition home or self-care (01) ==
LOC: MTLAB 15:56
PROVIDERS: Family Provider Family Medicine; PCP Family Medicine; Referring Provider Internal Medicine Cardiovascular Disease; Visit Provider Internal Medicine Cardiovascular Disease
DX: R10.9 Unspecified abdominal pain (principal); I48.20 Chronic atrial fibrillation, unspecified; Z79.01 Long term (current) use of anticoagulants; N40.0 Benign prostatic hyperplasia without lower urinary tract symptoms
CPT/HCPCS: 72072; 72110; 80053; 84153; 85025; 85610; 85652

== ENCOUNTER → 2020-03-19 | Outpatient (CLI) | payer MEDICARE, OTHER, SELFPAY ==
[2019-07-16 13:10] VITALS: BMI 29.3
--- NOTE | 2020-03-19 10:15 | RAD_ITS ---
STUDY: X-RAY - THORACIC SPINE REASON FOR EXAM: Male, 79 years old. RT FLANK PAIN. NKI TECHNIQUE: 3 view(s) of the thoracic spine were obtained. COMPARISON: 03/08/2020 FINDINGS: Normal kyphosis of the thoracic spine. There is no substantial scoliosis. Normal thoracic vertebrae and endplates. Normal disc space heights. The soft tissue structures are unremarkable. RAD/Thoracic Spine 2 Views IMPRESSION: Normal x-ray examination of the thoracic spine. Electronically Signed: Alex Marroquin MD at 12:35 EDT Tel , Service support ,
--- NOTE | 2020-03-19 10:15 | US_ITS ---
STUDY: ABDOMINAL ULTRASOUND REASON FOR EXAM: Male, 79 years old. Right upper quadrant pain, right flank pain TECHNIQUE: Transabdominal ultrasound was performed with real-time and static chamberlain scale imaging. TECHNICAL QUALITY: Adequate. COMPARISON: None. FINDINGS: Liver: The liver measures 16.7 cm. There is normal echogenicity of the liver. The bile ducts are within normal limits. There is hepatic color flow. The direction of portal flow is hepatopetal. There is no demonstrated mass lesion. Portal vein measurement: Gallbladder: Normal distended gallbladder. The gallbladder wall measures 2 mm. There is a negative sonographic Chapa''s sign. There is no pericholecystic fluid. There are no gallstones. Common Bile Duct (C.B.D.): The common bile duct measures 5 mm. Pancreas: Not visualized Spleen: Normal size of the spleen. The spleen measures 9.9 x 4.4 x 3.9 cm. Right Kidney: Normal size of the right kidney. The right kidney measures 11.8 x 6.1 x 5.3 cm. Normal renal cortex. The right cortex measures 1.3 cm. There is no demonstrated renal mass or cyst. There is no right hydronephrosis. Left Kidney: Normal size of the left kidney. The left kidney measures 11.5 x 5.4 x 6.1 cm. Normal renal cortex. The left cortex measures 1.6 cm. There is no demonstrated renal mass or cyst. There is no left hydronephrosis. Aorta: 2 cm maximum diameter I.V.C.: The IVC is patent. There is no ascites. US/Abdomen Complete IMPRESSION: Normal abdominal ultrasound examination. Electronically Signed: Dixie Leslie, at 18:49 EDT Tel , Service support ,
== END | disposition home or self-care (01) ==
LOC: US 03-23 11:50
PROVIDERS: PCP Family Medicine; Referring Provider Family Medicine; Visit Provider Family Medicine
DX: R10.9 Unspecified abdominal pain (principal)
CPT/HCPCS: 72070; 76700

== ENCOUNTER 2020-03-23 00:44 | Observation (INO) | payer MEDICARE, OTHER, SELFPAY ==
[2019-07-16 13:10] VITALS: BMI 29.3
[2020-03-23] VITALS (23 sets, daily range): BP systolic 107–193; BP diastolic 49–118; PULSE 74–93; RESP 16–29; TEMP 36.4–36.9; O2SAT 91–100; BMI 28.8; BMI 29.2; BMI 28.0
--- NOTE | 2020-03-23 00:46 | RAD_ITS ---
STUDY: X-RAY CHEST REASON FOR EXAM: Male, 79 years old. sob -- hx of copd TECHNIQUE: Single AP portable view of the chest. COMPARISON: 05/28/2019. FINDINGS: There is chronic elevation of the dome of the right hemidiaphragm. There are no demonstrated acute pulmonary infiltrates. There is no demonstrated pleural abnormality. Normal size heart. Normal mediastinum and evelin. Normal visualized pulmonary arteries. There is atherosclerotic calcification of the aortic arch with tortuosity. There are no visualized acute osseous abnormalities. . There is no demonstrated abnormality of the visualized soft tissue structures of the upper abdomen. RAD/Chest 1 View IMPRESSION: No evidence for acute cardiopulmonary pathology. Electronically Signed: Matthew Parson MD at 2:59 EDT , Service support ,
--- NOTE | 2020-03-23 00:46 | EKG12_ITS ---
Test Reason : DYSRHYTHMIA Blood Pressure : / mmHG Vent. Rate : 074 BPM Atrial Rate : 220 BPM P-R Int : 000 ms QRS Dur : 104 ms QT Int : 366 ms P-R-T Axes : 000 -41 027 degrees QTc Int : 406 ms Atrial fibrillation Left axis deviation Incomplete right bundle branch block Anterior infarct , age undetermined Abnormal ECG Confirmed by MARGE JUAN, NETTE ([id number]), television news video editor CARLENE DENNIS ([id number]) on 03/28/2020 1:18:29 PM Referred By: ANABELLE Confirmed By:SRIDHAR BIRD MD
--- NOTE | 2020-03-23 00:46 | CT_ITS ---
HISTORY: CONFUSION AND BLURRED VISIONHX:HTN,A-FIB,TIA EXAMINATION: CT Head or Brain W/O Contrast Injection TECHNIQUE: Multiple axial images were obtained of the head without intravenous contrast. A radiation dose optimization technique was used for this scan. IV Contrast dosage and agent: None COMPARISON: 04/25/2015 FINDINGS: Normal ventricles. Age-appropriate cerebral cortical atrophy. White matter small vessel chronic ischemic change. No intracranial mass, hemorrhage, or acute parenchymal abnormality. Vertebrobasilar atherosclerotic calcifications and otherwise negative posterior fossa. Bilateral carotid calcifications, as well. No suspicious extra-axial fluid collection. Bilateral mastoids appear clear. Subtotal opacification of the right ethmoid air cells and circumferential mucosal thickening of the right sphenoid and right maxillary sinuses and this represents worsening compared to prior CT. Chronic appearing mucosal thickening and partial opacification of the right frontal, left ethmoid, and left maxillary sinus. CT/Brain/Head without Contrast IMPRESSION: 1. No intracranial hemorrhage or acute intracranial disease identified. 2. White matter small vessel chronic ischemic change and age-appropriate cerebral cortical atrophy. 3. Chronic sinusitis with worsening of ethmoid, maxillary, and sphenoid sinusitis on the right compared to prior. Individualized dose optimization techniques were used for this CT. at 0117 Reported and signed by: Venkat Sebastian MD N.B. : The above information has been verbally conveyed by Venkat Sebastian to er staff, , on 03/23/2020 01:07:30 (ET). Electronically Signed: Venkat Sebastian, at 1:16 EDT Tel , Service support ,
--- NOTE | 2020-03-23 01:04 | ED.VIS.GEN ---
History of Present Illness Chief Complaint: Neuro S/Sx Informant: Patient, Family Narrative: Patient stated that at 11 PM tonight 2 hours ago he developed some spots in his bilateral vision. This happens frequently however per patient for several years quite frequently he will have what he thinks is silent migraines. He has never seen a neurologist or had this diagnosed in the past per patient. These last for short period time approximately 30 minutes and go away. The spots have gone away. His stated that he has been confused at home. He could not remember 1 of the name of his children. He stated he was having hard time naming his pulse ox at home. He has chronic COPD. He stated he is never had a TIA or stroke in the past however when reviewing his history in the computer it appears he has had a TIA remotely. He is on Coumadin for history of atrial fibrillation chronically. He denies any symptoms at this time. All of his symptoms have resolved. He stated it started to clear up before the paramedics came to bring him in. He stated he is back to baseline currently. Denies any weakness in his arms or legs or other stroke symptoms. - Past Medical History (1) Chronic atrial fibrillation Status: Chronic (2) Chronic diastolic (congestive) heart failure Status: Chronic (3) Essential (primary) hypertension Status: Chronic (4) Hyperlipidemia Status: Chronic (5) Hypertriglyceridemia Status: Chronic (6) manager terminal current use of anticoagulant Status: Chronic (7) Severe chronic obstructive pulmonary disease Status: Chronic Past Medical History - Allergies and Home Meds Allergies/Adverse Reactions: Allergies amlodipine [From Norvasc] Adverse Reaction (Verified 03/23/20 00:58) elevated bilirubin disopyramide phosphate [From Norpace] Adverse Reaction (Verified 03/23/20 00:58) Other STOOL TURNS WHITE AND BILIRUBIN WENT WAY UP metoprolol Adverse Reaction (Verified 03/23/20 00:58) SOB Primary Care Physician: Marcos Lam MD [Primary Care Provider] - Prior records reviewed: Yes Past Medical History: - - See problem list Surgical History: arthroscopy, knee, cataract, herniorrhaphy - inguinal, rotator cuff repair - on the left, - - bilateral corneal transplants. Lives: With Family Smoking Status: Never smoker Alcohol: None Drugs: None - Family History Maternal Family History: Family History (Last Reviewed 07/16/19 @ 16:[address] Javier Vasquez MD) Mother Hypertension A-fib Anxiety History of blood transfusion Bowel disease Colon cancer Depression (emotion) Father COPD (chronic obstructive pulmonary disease) Asthma Depression (emotion) Respiratory disease Sister Breast cancer Anxiety Grandfather Alcoholism Family History: Reports: Cancer - Colon cancer mother Paternal Family History: Family History (Last Reviewed 07/16/19 @ 16:[address] Javier Vasquez MD) Mother Hypertension A-fib Anxiety History of blood transfusion Bowel disease Colon cancer Depression (emotion) Father COPD (chronic obstructive pulmonary disease) Asthma Depression (emotion) Respiratory disease Sister Breast cancer Anxiety Grandfather Alcoholism Family History: Reports: COPD, Heart Disease Review of Systems General: Denies: Chills, Fever, Sweats Eyes: Reports: Visual changes - bilaterally - See HPI. Denies: Diplopia ENT: Denies: Rhinorrhea, Sore throat Cardiovascular: Denies: Chest pain, Palpitations Respiratory: Denies: Dyspnea, Cough, Dyspnea on exertion Gastrointestinal: Denies: Abdominal pain, Nausea, Vomiting, Diarrhea, Melena, Hematochezia Genitourinary: Denies: Dysuria, Hematuria, Frequency Musculoskeletal: Denies: Back pain, Extremity Pain Skin: Denies: Rash, Wounds Neurological: Reports: - - See HPI. Denies: Headache, Weakness, Numbness Physical Exam Vital Signs/Narrative: Vital Signs Temp Pulse Resp BP Pulse Ox 03/23/20 00:55 91 18 97 03/23/20 00:47 97.6 F L 74 16 187/92 H 97 General: Well nourished, Well developed, No Acute Distress Head: Normocephalic, Atraumatic Eyes: Perrl, EOMI ENT: Moist mucous membranes, No rhinorrhea Neck: Supple, Nontender Cardiovascular: Regular rate, Regular rhythm, No murmurs Respiratory: No distress, CTA bilaterally, Chest nontender Abdomen: Soft, Nontender, Nondistended, Normal bowel sounds Back: Nontender, Normal Inspection Extremities: Nontender, No edema Skin: Normal color, No rash Neurological: Alert, Oriented x3, Cranial nerves II-XII grossly intact, Normal Strength, Normal Sensation, - - NIH stroke scale 0. Negative for: Normal DTR, Confused, Disoriented, Inattentive, Stupor, Coma, Parasthesia, Left side facial droop, Right side facial droop Psychological: Normal affect, Normal Mood Diagnostic/Tx/Re-eval - Medical Decision Making Patient made a stroke team by EMS. Upon arrival the patient went to the CAT scanner. Discussed verbal findings with the radiologist nothing acute noted. Sinusitis changes noted. No intracranial hemorrhage. EKG upon arrival shows atrial fibrillation at a rate of 74 with no acute ischemia or arrhythmia. Blood sugar per EMS normal. Patient's initial evaluation by myself shows no focal deficits. His symptoms have resolved. His NIH stroke scale was 0. Will be discussed with neurology at [facility]. He is on Coumadin. Lab work shows nothing acute including CBC BMP. Troponin levels are left. INR is therapeutic above 2.5. Discussed the case with neurology at [facility]. The patient is not a candidate for TPA as he is on Coumadin with a therapeutic INR and his symptoms have resolved and he is back to baseline. His NIH stroke scale is 0. I suspect he has had a TIA. Neurology at [facility] wanted me to get a CT angios of the head and neck. This was discussed with the radiologist. Here he has bilateral 40% internal carotid stenosis with no significant hemodynamic compromise. Thing acute noted on the CT head per radiology. Chest x-ray shows nothing acute. Patient was given 1 breathing treatment. Blood pressures down to 160 after a dose of labetalol. I suspect his blood pressure being significantly elevated also contributed to the symptoms. Patient will be admitted to the hospitalist - Critical Care Time Critical care time (excluding procedures): 30-74 minutes ED Disposition - Plan for ED Patient: Disposition: Acute Care Hospital [facility] Diagnosis: TIA (transient ischemic attack), Hypertensive emergency, Chronic atrial fibrillation
[2020-03-23 01:08] LABS: Absolute Lymphocyte Count 1.35 X10^3/uL (0.83-4.51); Absolute Neutrophil Count 3.1 X10^3/uL (2.0-7.7); Basophil# 0.06 X10^3/uL; Eosinophils% 15.2 % (0-5); Hematocrit 47.7 % (40-54); Hemoglobin 15.6 g/dL (13.0-16.5); Lymphocyte # 1.35 X10^3/ul (4.0); Lymphocyte % 22.8 % (19-41); Mean Corp Hgb Conc 32.7 g/dL (32-36); Mean Corpuscular Hgb 33.1 pg (27.0-32.0); Mean Corpuscular Volume 101.1 fL (80-94); Mean Platelet Vol. 10.9 fl (6.2-12.0); Monocyte# 0.51 X10^3/uL; Monocyte% 8.6 % (0-10); NRBC Flagged by Analyzer 0 % (0-5); Neutrophil # 3.08 X10^3/uL (2.7-7.7); Neutrophil % 52.2 % (47-70); Platelet Count 175 K/mm3 (150-450); RBC Distribution Width CV 13.7 % (11.6-14.6); RBC Distribution Width SD 51.3 fl (35.1-43.9); Red Blood Count 4.72 M/mm3 (4.6-6.2); White Blood Count 5.9 K/mm3 (4.4-11.0)
[2020-03-23 01:17] LABS: International Normalized Ratio 2.6; Prothrombin Time (Protime)PT. 27.3 SECONDS (11.7-14.9)
[2020-03-23 01:18] LABS: Partial Thromboplast Time 36.5 Seconds (24.1-36.2)
[2020-03-23 01:26] LABS: Anion Gap 3 (5-15); BUN 14 mg/dL (7-18); BUN/Creat Ratio 16.5 RATIO (10-20); Calcium,Total 8.8 mg/dL (8.5-10.1); Chloride 100 mmol/L (98-107); Creatinine, Serum 0.85 mg/dL (0.70-1.30); EST Glomerular Filtration Rate 93 mL/min (>60); Est Glom Filt Rate - Afr Amer 112 mL/min (>60); Estimated Creatinine Clearance 73.82 ml/min; Glucose 116 mg/dL (74-106); Potassium 4.4 mmol/L (3.5-5.1); Sodium Level 136 mmol/L (136-145)
--- NOTE | 2020-03-23 01:57 | CT_ITS ---
CONFUSION,BLURRED VISION HX:HTN,COPD,A-FIB -ON COUMADIN,TIA TECHNIQUE: Routine carotid CT angiogram protocol was performed without and with IV contrast. In addition, images were obtained of the [place] of [place]. Nascet criteria using the distal ICAs for comparison were used for evaluation of stenoses. 3D reconstructions were reviewed. A radiation dose optimization technique was used for this scan. IV Contrast dosage and agent: 100mL Isovue-370 IV 100mL Isovue-370 COMPARISON: None FINDINGS: --NECK: AORTIC ARCH AND BRANCHES: Normal anatomy, patent. RIGHT CCA/ICA: Mixed calcified plaque of the common carotid bifurcation and proximal ICA extending over a 1.5 cm length with 40% short length luminal narrowing of the proximal ICA. Short length 20% narrowing of the right ECA origin. LEFT CCA/ICA: Calcified plaque of the CCA bifurcation and proximal ICA extending over a 1.7 cm length with short length 40% luminal narrowing of the proximal ICA. The left ECA remains widely patent. RIGHT VERTEBRAL ARTERY: No occlusion, significant stenosis or dissection. LEFT VERTEBRAL ARTERY: No occlusion, significant stenosis or dissection. NECK SOFT TISSUES: No acute disease. Paranasal sinuses: Pansinusitis with the exception of left frontal sinus sparing. Most notable opacification of the right ethmoid sinus which show subtotal opacification. Right sphenoid sinus moderate circumferential mucosal thickening. --HEAD: --Anterior circulation: ICAs: No significant stenosis at the intracranial/visualized segments. ACAs: No significant stenosis at the visualized segments. MCAs: No significant stenosis at the visualized segments. --Posterior circulation: The posterior cerebral arteries originate from the basilar artery. No circulation. jammer hooker: No significant stenosis at the visualized segments. BASILAR ARTERY: No significant stenosis. VERTEBRAL ARTERIES: No significant stenosis at the intradural/visualized segments. Developmentally small intradural right vertebral artery. No evidence of intracranial aneurysm or vascular malformation. CT/CTA Head AND Neck W/ Contrast IMPRESSION: 1. Negative CTA brain and [place] of [place]. No arterial occlusion or acute disease. 2. Hemodynamically insignificant 40% short length stenoses of the proximal right and left internal carotid arteries. 3. Normal patency and flow of bilateral vertebral arteries. Individualized dose optimization techniques were used for this CT. at 0300 Reported and signed by: Venkat Sebastian MD N.B. : The above information has been verbally conveyed by Venkat Sebastian to [place] Andrew MD, on 03/23/2020 02:48:55 (ET). Electronically Signed: Venkat Sebastian, at 2:59 EDT Tel , Service support ,
[2020-03-23] MEDS: Labetalol (Prefilled) 20 MG/4 ML IV (02:35)
[2020-03-23] MEDS: Albuterol 2.5 MG/3 ML VIAL.NEB. INHALATION (02:53)
--- NOTE | 2020-03-23 02:59 | HP.PCM_ITS ---
Problem List (1) TIA (transient ischemic attack) Status: Acute (2) Hypertensive emergency Status: Acute (3) Chronic atrial fibrillation Status: Chronic (4) Essential (primary) hypertension Status: Chronic (5) Hypertriglyceridemia Status: Chronic (6) Chronic diastolic (congestive) heart failure Status: Chronic (7) Severe chronic obstructive pulmonary disease Status: Chronic (8) Hyperlipidemia Status: Chronic Qualifiers: Hyperlipidemia type: unspecified Qualified Code(s): E78.5 - Hyperlipidemia, unspecified (9) alf current use of anticoagulant Status: Chronic (10) Encephalopathy acute Status: Acute (11) Encephalopathy Status: Inactive History of Present Illness Date of Admission: 03/23/20 Chief Complaint: confusion The patient is a 79 year old M with a significant history of alcohol abuse; depression; chronic atrial fibrillation:; Chronic diastolic heart failure; and TIA who presents to the emergency department with confusion that started 2 hours before presentation. Reportedly patient could not focus. Further he could not name objects. He could not properly name his home pulse ox. Further he forgot the name of one of his children. Associated with his symptoms is vision changes which he describes as seeing blinded spots This vision changes occurs to him frequently and he attributes this to silent migraine' which he describes as migraine without headache. At emergency department his confusion greatly improved; and his vision changes had already disappeared. Emergency department doctor discussed the case with telemetry neurologist. Patient was not a candidate for TPA since he is on Coumadin. Also his symptoms had almost resolved at emergency department. While sitting at fowlers position on his bed at the ED patient felt he was having more difficulty breathing and requested to sit at the edge of bed and to have his legs dangled. He thinks he is wheezing more than usual. He could not expectorate his sputum after breathing treatment at the ED. Although he could expectorate his sputum after breathing treatments at home. Past Medical History Past Medical History (Chronic Problems): Chronic Problems (Last Reviewed 07/16/19 @ 16:[address] Javier Vasquez MD) Chronic atrial fibrillation (Chronic) Essential (primary) hypertension (Chronic) Hypertriglyceridemia (Chronic) Chronic diastolic (congestive) heart failure (Chronic) Severe chronic obstructive pulmonary disease (Chronic) Hyperlipidemia (Chronic) alf current use of anticoagulant (Chronic) Medical History: Medical History (Last Reviewed 03/23/20 @ 06:[address] Kedar Velez MD) Chronic atrial fibrillation (Chronic) I48.2 Essential (primary) hypertension (Chronic) I10 Hypertriglyceridemia (Chronic) E78.1 Chronic diastolic (congestive) heart failure (Chronic) I50.32 Severe chronic obstructive pulmonary disease (Chronic) J44.9 Hyperlipidemia (Chronic) E78.5 Nicotine dependence F17.200 Actinic keratosis L57.0 6 mm actinic lesion left nasal tip 3.2 cm actinic keratosis left medial elbow Actinic keratosis of left cheek L57.0 scattered actinic damage left cheek Alcohol abuse F10.10 Anxiety and depression F41.9, F32.9 Back problem M53.9 Cataracts, bilateral H26.9 Diverticulosis K57.90 GERD (gastroesophageal reflux disease) K21.9 Gastrointestinal problem R19.8 Generalized anxiety disorder F41.1 Glaucoma H40.9 Hearing problem H91.90 Migraines G43.909 Neoplasm of unspecified behavior of bone, soft tissue, and skin D49.2 3.2 cm erythematous nodular lesion left medial elbow Panic disorder with agoraphobia Sleep apnea G47.30 TIA (transient ischemic attack) G45.9 Vision problems H54.7 Bone fracture T14.8XXA Shortness of breath (Resolved) R06.02 UTI (urinary tract infection) N39.0 PROSTATE PROBLEMS Allergies amlodipine [From Norvasc] Adverse Reaction (Verified 03/23/20 00:58) elevated bilirubin disopyramide phosphate [From Norpace] Adverse Reaction (Verified 03/23/20 00:58) Other STOOL TURNS WHITE AND BILIRUBIN WENT WAY UP metoprolol Adverse Reaction (Verified 03/23/20 00:58) SOB Home Medications: Ambulatory Orders Medication Instructions Recorded Albuterol Sulfate [Proventil Hfa] 1 spray IH Q8 04/25/15 finasteride 5 mg tablet 5 mg PO QDAY 11/25/17 albuterol sulfate 2.5 mg INHALATION .qid PRN ml 11/26/17 fluticasone propionate 250 1 inh INHALATION BID 11/26/17 mcg/actuation blister powder for inhalation ipratropium bromide 0.02 % 0.5 mg INHALATION Q6H PRN 11/26/17 solution for inhalation magnesium oxide 400 mg (241.3 mg 400 mg PO TID tab 11/26/17 magnesium) tablet carvedilol 12.5 mg tablet 12.5 mg PO QAM tab 07/16/19 carvedilol 25 mg tablet 25 mg PO QPM tab 07/16/19 Warfarin Sodium 4 mg PO DAILY 03/23/20 Surgical History: Surgical History (Last Reviewed 03/23/20 @ 06:[address] 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 Psychiatric History: Anxiety - generalized anxiety with panic attacks, - - agorophobia Lives: With Family Smoking Status: Never smoker Alcohol: None Drugs: None - *Family History Maternal Family History: Family History (Last Reviewed 03/23/20 @ 05:[address] Kedar Velez MD) Mother Hypertension A-fib Anxiety History of blood transfusion Bowel disease Colon cancer Depression (emotion) Father COPD (chronic obstructive pulmonary disease) Asthma Depression (emotion) Respiratory disease Sister Breast cancer Anxiety Grandfather Alcoholism History Items: Cancer - Colon cancer mother Paternal Family History: Family History (Last Reviewed 03/23/20 @ 05:[address] Kedar Velez MD) Mother Hypertension A-fib Anxiety History of blood transfusion Bowel disease Colon cancer Depression (emotion) Father COPD (chronic obstructive pulmonary disease) Asthma Depression (emotion) Respiratory disease Sister Breast cancer Anxiety Grandfather Alcoholism History Items: COPD, Heart Disease Review of Systems Constitutional: Denies: Chills, Fever, Weight Change Eyes: Reports: Vision Change HEENT: Denies: Head Aches, Sinus Congestion, Sinus Drainage Cardiovascular: Denies: Chest Pain, Palpitations Respiratory: Reports: Cough, Shortness of Breath, Sputum production, Wheezing Gastrointestinal: Denies: Abdominal Pain, Nausea, Vomiting Genitourinary: Denies: Dysuria Musculoskeletal: Denies: Joint Pain, Joint Tenderness Skin: Denies: Rash, Wounds Neurological: Reports: Confusion. Denies: Focal weakness, Numbness, Tingling Psychiatric: Denies: Anxiety, Depression, Homicidal Ideations, Suicidal Ideations Hematologic/ Lymphatic: Denies: Easy Bruising, Easy Bleeding VTE Information - Inpt Only VTE Present on Admission: No VTE Mechan Device Prophylaxis: None VTE Pharm Prophylaxis ordered?: No Reason prophylaxis not ordered:: Treatment Not Indicated - Coumdian continued for Afib Patient Problems: Active and Suspected Problems (Last Reviewed 07/16/19 @ 16:[address] Javier Vasquez MD) TIA (transient ischemic attack) (Acute) Hypertensive emergency (Acute) Encephalopathy acute (Acute) - Physical Exam Vitals/I&O's: Vital Signs Temp Pulse Resp BP Pulse Ox 97.6 F L 93 22 H 161/99 H 100 03/23/20 00:47 03/23/20 02:37 03/23/20 02:37 03/23/20 02:53 03/23/20 02:37 Oxygen Flow Rate (L/min) 4 Oxygen Delivery Method Nasal Cannula Weight: 93.6 kg Body Mass Index (BMI) 28.8 Finger Stick Blood Glucose 106 General: Alert, Oriented x3, Cooperative HEENT: Atraumatic, PERRLA, EOMI, Normocephalic Neck: Supple, No JVD, Negative Carotid Bruits Lungs: Rhonchi, Short of Breath, Wheezes Cardiovascular: Normal S1, Normal S2, No murmurs, Irregular Rate Abdomen: Bowel Sounds Present, Soft, Non Tender Extremities: No edema, Capillary Refill Less than 3 Seconds Skin: No rashes, No breakdown Musculoskeletal: No Tenderness to Palpation of Joints or Extremities Neurological: Cranial nerves II-XII grossly intact, Deep Tendon Reflexes 2+/4 and Symmetrical, Neuro grossly intact, Motor Exam 5/5 strength throughout, Muscle tone normal, Coordination normal Psych/Mental Status: Normal Affect, Appropriate Laboratory Results 03/23/20 00:50: WBC 5.9, RBC 4.72, Hgb 15.6, Hct 47.7, MCV 101.1 H, MCH 33.1 H, MCHC 32.7, RDW Std Deviation 51.3 H, RDW Coeff of Caterina 13.7, Plt Count 175, MPV 10.9, Immature Gran % (Auto) 0.200, Neut % (Auto) 52.2, Lymph % (Auto) 22.8, [place] % (Auto) 8.6, Eos % (Auto) 15.2 H, Baso % (Auto) 1.0, Absolute Neuts (auto) 3.1, Absolute Lymphs (auto) 1.35, Nucleated RBC % 0 03/23/20 00:50: PT 27.3 H, INR 2.6, APTT 36.5 H 03/23/20 00:50: Sodium 136, Potassium 4.4, Chloride 100, Carbon Dioxide 33.0 H, Anion Gap 3 L, BUN 14, Creatinine 0.85, Estim Creat Clear Calc 73.82, Est GFR (MDRD) Af Amer 112, Est GFR (MDRD) Non-Af 93, BUN/Creatinine Ratio 16.5, Glucose 116 H, Calcium 8.8, Troponin I < 0.015 Current Medications Sodium Chloride 1,000 ml/ N/A 1,000 mls @ 280.8 mls/hr IV .Q3H34M BENJAMIN Stop: 03/23/20 09:01 Labetalol HCl (Trandate) 20 mg IV X1 PRN PRN Reason: BLOOD PRESSURE Last Admin: 03/23/20 02:35 Dose: 20 mg Documented by: Assessment/Plan All Active Problems (Last Reviewed 07/16/19 @ 16:[address] Javier Vasquez MD) TIA (transient ischemic attack) (Acute) Hypertensive emergency (Acute) Encephalopathy acute (Acute) ARF (acute renal failure) (Resolved) Acute diverticulitis (Resolved) Chest pain (Resolved) Chills (Resolved) Dysuria (Resolved) Hyponatremia (Resolved) Ileus (Resolved) Left elbow pain (Resolved) Shortness of breath (Resolved) TIA (transient ischemic attack) (Resolved) The patient is a 79 year old M with a significant history of alcohol abuse; citing depression; chronic atrial fibrillation:; Chronic diastolic heart failure; and TIA who presents emergency department with confusion and vision changes. Acute encephalopathy NINDS NIH Scale was 0 Etiology includes hypertensive emergency. Head and neck CTA showed hemodynamically insignificant 40% stenosis of the short left proximal right and left internal carotid arteries. Brain CT showed sinusitis and chronic changes. -Check Hba1c, Lipid level MRI brain ordered Echocardiogram ordered. Physical therapy, occupational therapy and speech therapy to work with patient. N.p.o. until bedside swallow eval. Rule out CVA with serial NIHs and MRI. No need of permissive hypertension since it is less likely stroke but more likely from hypertensive emergency; and his blood pressure should be controlled. Hold of aspirin and Lipitor at this time since patient did not have any focal deficits. COPD exacerbation We will start patient on prednisone 40 mg p.o. daily Scheduled DuoNeb PRN albuterol Mucinex p.o. twice daily. Chronic alcoholism Patient drinks 6 beers of lite beer every day. Reportedly it is 4% of alcohol. Patient does not think that he will withdraw as he has had multiple admissions with no withdrawal. Clinical monitoring. Chronic A. fib Carvedilol continued Warfarin continued Hypertensive emergency Received labetalol IV in emergency department. Carvedilol continued Labetalol IV PRN ordered. Trend blood pressure and adjust blood pressure medications. Tobacco abuse Declined nicotine patch Counseled. DVT prophylaxis Not indicated since patient is therapeutic on Coumadin for his A. fib. Coumadin continued. Advance directive: Patient is a full code. Sixteen minutes was used explained to patient various CODE STATUS. Patient stated that he would like everything possible to be done for a short time. Discussed and encourage patients to consider a living will or Power of assistant district attorney. Offered to get case management involved to help patient with a necessary instructions on POA or living will document. Patient declined this time but he will continue think about it. OBSV E&M: 10181 Initial observation care L3
--- NOTE | 2020-03-23 05:39 | MRI_ITS ---
STUDY: MRI BRAIN WITHOUT CONTRAST REASON FOR EXAM: Male, 79 years old. cva -- confusion TECHNIQUE: Standardized multiplanar fat and water weighted pulse sequences were obtained. COMPARISON: CT 03/23/2020, MRI of the 04/25/2015 FINDINGS: There is moderate cerebral atrophy with widening of the extra-axial spaces and ventricular dilatation. There are multiple white matter hyperintensities, distributed throughout the deep white matter tracts of the cerebral hemispheres, consistent with moderate chronic white matter ischemic changes. There is no evidence for recent intracranial ischemia or other cause of cytotoxic edema on diffusion weighted imaging (DWI). Normal T2* images of the brain without demonstrated susceptibility artifact. There is no demonstrated hemosiderin stain. Normal bilateral basal ganglia. Normal thalami. There is no extra-axial fluid accumulation. Normal flow voids within the major intracranial circulation suggesting patency by spin echo criteria. Normal sella turcica, pituitary gland, infundibular stalk, optic chiasm and hypothalamus. Normal tectal plate and pineal gland. Normal midbrain, nay and medulla. Normal cerebellum. Normal basal cisterns. Normal bilateral temporal bones. Normal bilateral internal auditory canals. There are bilateral ocular lens implants with otherwise normal intraorbital contents. There is mucoperiosteal inflammatory disease of the paranasal sinuses consistent with moderate chronic sinusitis. Normal calvarium and skull base. Normal visualized soft tissue structures. Normal visualized upper cervical spine. MRI/Brain without Contrast IMPRESSION: Involutional changes of the brain, as described above. Electronically Signed: Alex Marroquin MD at 12:33 EDT Tel , Service support ,
--- NOTE | 2020-03-23 05:39 | ECHOD_ITS ---
Reason For Study: TIA/CVA Procedure This was a 2D Doppler, Color Flow transthoracic echocardiogram. Limited views were obtained. Exam performed portable in patient room. Left Ventricle Normal LV size. Left ventricular systolic function is normal. The estimated ejection fraction is 60 %. Unable to assess diastolic dysfunction due to arrhythmia. No regional wall motion abnormalities noted. Right Ventricle Normal RV size. Normal systolic function. Atria Normal left atrium. Normal right atrium. Bubble contrast study negative for right to left interatrial shunt. Mitral Valve Normal mitral valve. Tricuspid Valve Normal tricuspid valve. Aortic Valve Trisinus/trileaflet aortic valve. Mild focal aortic valve calcification. Pulmonic Valve The pulmonic valve is not well visualized. Great Vessels Normal aortic root. The pulmonary artery is normal size. Normal inferior vena cava. Pericardium/Pleural No pericardial effusion. Medication Performed a rapid injection of agitated mix of 9 cc saline and 1cc air to assess for atrial septal defect. MMode/2D Measurements & Calculations LVIDd: 4.3 cm IVSd: 1.0 cm LVOT diam: 2.1 cm LVIDs: 2.8 cm LVPWd: 0.94 cm RVDd: 2.8 cm FS: 35.6 % LVOT area: 3.6 cm2 Ao root diam: 3.2 cm LAV(MOD-bp): 73.9 ml LA A4 area: 19.9 cm2 LAV(MOD-bp) Indexed: 36.0 ml/m2 LAV(MOD-sp2): 80.0 ml LAV(MOD-sp4): 56.8 ml LA dimension(2D): 4.5 cm RA A4 area: 18.6 cm2 Doppler Measurements & Calculations MV E max stephanie: 110.8 cm/sec Ao V2 max: 168.3 cm/sec LV V1 max: 120.0 cm/sec Ao max P.3 mmHg LV V1 max P.8 mmHg Ao V2 mean: 114.4 cm/sec LV V1 mean P.1 mmHg Ao mean P.8 mmHg LV V1 mean: 84.5 cm/sec Ao V2 VTI: 35.4 cm LV V1 VTI: 25.2 cm ALFREDO(I,D): 2.5 cm2 ALFREDO(V,D): 2.5 cm2 SV(LVOT): 89.7 ml PA V2 max: 83.3 cm/sec TR max stephanie: 238.8 cm/sec TR max P.9 mmHg Interpretation Summary Normal LV size. Left ventricular systolic function is normal. The estimated ejection fraction is 60 %. Unable to assess diastolic dysfunction due to arrhythmia. Ordering Physician: Kedar Velez Referring Physician: Marcos Lam MD Performed By: Velia Donato RDCS
[2020-03-23 06:09] LABS: Cholesterol 204 mg/dL (200); High Density Lipoprotein 38 mg/dL; Triglycerides 203 mg/dL; Very Low Density Lipoprotein 41 mg/dL (5-40)
[2020-03-23] MEDS: guaiFENesin 600 MG Tablet PO ×2 (06:27→10:39)
[2020-03-23] MEDS: Magnesium Chloride 64 MG Delay Rel.Tablet 128 MG PO ×2 (06:27→15:56)
[2020-03-23] MEDS: Ipratropium/Albuterol Sulfate 3 ML AMPUL.NEB INHALATION ×2 (06:48→10:31)
[2020-03-23] MEDS: Budesonide Respules 0.5 MG/2 ML AMPUL.NEB. INHALATION (06:48)
--- NOTE | 2020-03-23 07:38 | PCM.PN.BLA ---
STROKE Vital Signs/Narrative: Vital Signs Temp Pulse Resp BP Pulse Ox 03/23/20 06:53 77 03/23/20 06:32 98.4 F 75 16 123/68 H 98 03/23/20 06:00 98.2 F 80 18 158/80 H 98 03/23/20 05:58 98.2 F 80 18 158/80 H 98 03/23/20 05:19 100 03/23/20 04:49 78 03/23/20 04:00 98.3 F 85 18 165/91 H 100
[2020-03-23 08:21] LABS: Hemoglobin A1c 5.3 % (3.8-5.6)
[2020-03-23] MEDS: LORazepam 1 MG Tablet 2 MG PO (08:24)
--- NOTE | 2020-03-23 10:16 | NURSING ---
observed patient during MRI, pt did move around a bit, but tolerated the procedure without distress, pt was slightly restless after MRI but calmed almost immediately once testing was done, report called to Eddy GARCIA.
[2020-03-23] MEDS: Finasteride 5 MG Tablet PO (10:39)
--- NOTE | 2020-03-23 12:18 | PN_ITS ---
<Aston Alvaradossica DAG [employer]ATER - Last Filed: 03/23/20 12:52> Patient Problems: Active and Suspected Problems (Last Reviewed 03/23/20 @ 06:[address] Kedar blackwell MD) TIA (transient ischemic attack) (Acute) Hypertensive emergency (Acute) Encephalopathy acute (Acute) Subjective: Patient seen and examined. Drowsy following Ativan which was given prior to MRI. Per RN, patient has been alert and oriented. NIH 0. - Physical Exam Vitals/I&O's: Vital Signs Temp Pulse Resp BP Pulse Ox 97.8 F 80 18 107/49 L 97 03/23/20 10:35 03/23/20 10:35 03/23/20 10:35 03/23/20 10:35 03/23/20 10:35 Oxygen Flow Rate (L/min) 3 Oxygen Delivery Method Nasal Cannula Weight: 197 lb 12.074 oz Body Mass Index (BMI) 29.2 Finger Stick Blood Glucose 106 Intake and Output for Last 24 Hours 03/21/20 03/22/20 03/23/20 23:59 23:59 23:59 Intake Total 1120 / 1120 Balance 1120 / 1120 General: No apparent distress, Lethargic HEENT: Atraumatic, PERRLA, EOMI, Normocephalic Oral: Dry Mucosa Neck: Supple, No JVD, Negative Carotid Bruits Lungs: Clear to auscultation, Diminished Cardiovascular: Regular rate, No murmurs Abdomen: Bowel Sounds Present, Soft, Non Tender, Non-Distended Extremities: No clubbing, No cyanosis, No edema, Capillary Refill Less than 3 Seconds Skin: No rashes, No breakdown Musculoskeletal: No Tenderness to Palpation of Joints or Extremities Neurological: Cranial nerves II-XII grossly intact, Neuro grossly intact Psych/Mental Status: Normal Affect, Appropriate Laboratory Results 03/23/20 00:50: WBC 5.9, RBC 4.72, Hgb 15.6, Hct 47.7, MCV 101.1 H, MCH 33.1 H, MCHC 32.7, RDW Std Deviation 51.3 H, RDW Coeff of Caterina 13.7, Plt Count 175, MPV 10.9, Immature Gran % (Auto) 0.200, Neut % (Auto) 52.2, Lymph % (Auto) 22.8, [place] % (Auto) 8.6, Eos % (Auto) 15.2 H, Baso % (Auto) 1.0, Absolute Neuts (auto) 3.1, Absolute Lymphs (auto) 1.35, Nucleated RBC % 0 03/23/20 00:50: PT 27.3 H, INR 2.6, APTT 36.5 H 03/23/20 00:50: Sodium 136, Potassium 4.4, Chloride 100, Carbon Dioxide 33.0 H, Anion Gap 3 L, BUN 14, Creatinine 0.85, Estim Creat Clear Calc 73.82, Est GFR (MDRD) Af Amer 112, Est GFR (MDRD) Non-Af 93, BUN/Creatinine Ratio 16.5, Glucose 116 H, Calcium 8.8, Troponin I < 0.015 03/23/20 00:50: Hemoglobin A1c 5.3 03/23/20 00:50: Triglycerides 203 H, Cholesterol 204 H, LDL Cholesterol 125, VLDL Cholesterol 41 H, HDL Cholesterol 38 L Current Medications Acetaminophen (Tylenol) 650 mg PO Q6H PRN PRN PRN Reason: Pain Score 1-10/Temp > 100.7 F Albuterol Sulfate (Ventolin Aerosols) 2.5 mg INHALATION Q2H PRN PRN PRN Reason: SOB/WHEEZING Albuterol/Ipratropium (Duoneb) 3 ml INHALATION Q4HWA.RT [facility] Last Admin: 03/23/20 10:31 Dose: 3 ml Documented by: Budesonide (Pulmicort Aerosol) 0.5 mg INHALATION Q12H.RT [facility] Last Admin: 03/23/20 06:48 Dose: 0.5 mg Documented by: Carvedilol (Coreg) 12.5 mg PO QAM [facility] Last Admin: 03/23/20 10:49 Dose: Not Given Documented by: Carvedilol (Coreg) 25 mg PO QPM [facility] Finasteride (Proscar) 5 mg PO DAILY [facility] Last Admin: 03/23/20 10:39 Dose: 5 mg Documented by: Guaifenesin (Mucinex) 600 mg PO BID [facility] Last Admin: 03/23/20 10:39 Dose: 600 mg Documented by: Labetalol HCl (Trandate) 10 mg IV Q4H PRN PRN PRN Reason: sbp > 160 or DBP > 120 Magnesium Chloride (Mag64) 128 mg PO TID [facility] Last Admin: 03/23/20 06:27 Dose: 128 mg Documented by: Melatonin (Melatonin) 3 mg PO QHS PRN PRN PRN Reason: INSOMNIA Ondansetron HCl (Zofran) 4 mg IV Q8H PRN PRN PRN Reason: NAUSEA/VOMITING Senna/Docusate Sodium (Senokot-S, Padmini-Colace) 2 tablet PO BID PRN PRN PRN Reason: Constipation Sodium Chloride () 10 - 40 ml IV UD PRN PRN Reason: SALINE FLUSH Warfarin Sodium (Jantoven) 4 mg PO DAILY@1700 [facility]; Protocol Medical Necessity - Tobacco Use Smoking Status: Current every day smoker Tobacco Use: Cigarettes Assessment/Plan All Active Problems (Last Reviewed 03/23/20 @ 06:[address] Kedar Velez MD) TIA (transient ischemic attack) (Acute) Hypertensive emergency (Acute) Encephalopathy acute (Acute) ARF (acute renal failure) (Resolved) Acute diverticulitis (Resolved) Chest pain (Resolved) Chills (Resolved) Dysuria (Resolved) Hyponatremia (Resolved) Ileus (Resolved) Left elbow pain (Resolved) Shortness of breath (Resolved) TIA (transient ischemic attack) (Resolved) 1. Acute encephalopathy-unclear etiology. UA and chest x-ray unremarkable. Brain CT negative for acute process. CTA unremarkable. MRI of brain negative for CVA. Echocardiogram ordered. PT/OT. Confusion appears improved. Follow- up therapy recommendations.4. 2. Hypertensive urgency-now stable. Continue home carvedilol regimen. PRN hydralazine for systolic blood pressure greater than 160. 3. Chronic hypoxic respiratory failure with COPD exacerbation-chest x-ray without acute process. Albuterol and DuoNeb aerosols. Continue prednisone taper. 4. Chronic alcohol dependence- CIWA. No evidence of withdrawal. 5. Chronic atrial fibrillation-on anticoagulation with Coumadin. Continue carvedilol. INR therapeutic. 6. Tobacco dependence- Encouraged cessation. 7. DAQUAN- continue cpap QHS. DVT prophylaxis-Coumadin This patient was seen by JUANA Guerra under the supervision of Dr. Ha. <Kathy Ha - Last Filed: 03/23/20 14:30> - Physical Exam Vitals/I&O's: Vital Signs Temp Pulse Resp BP Pulse Ox 97.8 F 80 18 107/49 L 97 03/23/20 10:35 03/23/20 10:35 03/23/20 10:35 03/23/20 10:35 03/23/20 10:35 Oxygen Flow Rate (L/min) 3 Oxygen Delivery Method Nasal Cannula Weight: 89.7 kg Body Mass Index (BMI) 29.2 Finger Stick Blood Glucose 106 Intake and Output for Last 24 Hours 03/21/20 03/22/20 03/23/20 23:59 23:59 23:59 Intake Total 1360 / 1360 Balance 1360 / 1360 Laboratory Results 03/23/20 00:50: WBC 5.9, RBC 4.72, Hgb 15.6, Hct 47.7, MCV 101.1 H, MCH 33.1 H, MCHC 32.7, RDW Std Deviation 51.3 H, RDW Coeff of Caterina 13.7, Plt Count 175, MPV 10.9, Immature Gran % (Auto) 0.200, Neut % (Auto) 52.2, Lymph % (Auto) 22.8, [place] % (Auto) 8.6, Eos % (Auto) 15.2 H, Baso % (Auto) 1.0, Absolute Neuts (auto) 3.1, Absolute Lymphs (auto) 1.35, Nucleated RBC % 0 03/23/20 00:50: PT 27.3 H, INR 2.6, APTT 36.5 H 03/23/20 00:50: Sodium 136, Potassium 4.4, Chloride 100, Carbon Dioxide 33.0 H, Anion Gap 3 L, BUN 14, Creatinine 0.85, Estim Creat Clear Calc 73.82, Est GFR (MDRD) Af Amer 112, Est GFR (MDRD) Non-Af 93, BUN/Creatinine Ratio 16.5, Glucose 116 H, Calcium 8.8, Troponin I < 0.015 03/23/20 00:50: Hemoglobin A1c 5.3 03/23/20 00:50: Triglycerides 203 H, Cholesterol 204 H, LDL Cholesterol 125, VLDL Cholesterol 41 H, HDL Cholesterol 38 L Current Medications Acetaminophen (Tylenol) 650 mg PO Q6H PRN PRN PRN Reason: Pain Score 1-10/Temp > 100.7 F Albuterol Sulfate (Ventolin Aerosols) 2.5 mg INHALATION Q2H PRN PRN PRN Reason: SOB/WHEEZING Albuterol/Ipratropium (Duoneb) 3 ml INHALATION Q4HWA.RT [facility] Last Admin: 03/23/20 10:31 Dose: 3 ml Documented by: Atorvastatin Calcium (Lipitor) 20 mg PO QHS [facility] Budesonide (Pulmicort Aerosol) 0.5 mg INHALATION Q12H.RT [facility] Last Admin: 03/23/20 06:48 Dose: 0.5 mg Documented by: Carvedilol (Coreg) 12.5 mg PO QAM [facility] Last Admin: 03/23/20 10:49 Dose: Not Given Documented by: Carvedilol (Coreg) 25 mg PO QPM [facility] Finasteride (Proscar) 5 mg PO DAILY [facility] Last Admin: 03/23/20 10:39 Dose: 5 mg Documented by: Guaifenesin (Mucinex) 600 mg PO BID [facility] Last Admin: 03/23/20 10:39 Dose: 600 mg Documented by: Labetalol HCl (Trandate) 10 mg IV Q4H PRN PRN PRN Reason: sbp > 160 or DBP > 120 Magnesium Chloride (Mag64) 128 mg PO TID [facility] Last Admin: 03/23/20 06:27 Dose: 128 mg Documented by: Melatonin (Melatonin) 3 mg PO QHS PRN PRN PRN Reason: INSOMNIA Ondansetron HCl (Zofran) 4 mg IV Q8H PRN PRN PRN Reason: NAUSEA/VOMITING Senna/Docusate Sodium (Senokot-S, Padmini-Colace) 2 tablet PO BID PRN PRN PRN Reason: Constipation Sodium Chloride () 10 - 40 ml IV UD PRN PRN Reason: SALINE FLUSH Warfarin Sodium (Jantoven) 4 mg PO DAILY@1700 [facility]; Protocol Assessment/Plan This patient was seen in conjunction with Mirna Alvarado NP. I have independently interviewed and examined the patient and reviewed pertinent historical, laboratory, and other data. Please refer to her note for patient's presentation, findings, and recommendations. Patient was seen and examined. Symptoms remain resolved. NIHSS score is 0. He was premedicated for the MRI with Ativan 2 mg p.o. x1. MRI of the brain is negative. Vitals were reviewed -stable Physical Exam: Gen: Comfortable, not pale, not jaundiced, alert oriented x3 CVS:HS I +II, regular, no murmurs RESP: Diminished at lung bases GI: BS present and normal, nontender, no palpable organs EXT:No edema ASSOCIATE DIRECTOR: Grossly intact Labs reviewed: ASSESSMENT: 1. Acute encephalopathy 2. Hypertensive urgency 3. Chronic hypoxic respiratory failure 4. Acute COPD exacerbation, mild 5. Chronic alcohol use disorder 6. Chronic atrial fibrillation 7. Nicotine dependence Meds reviewed Plan: We will continue to follow-up on PT/OT recommendations Discharge planning ongoing Repeat INR in a.m. Inpatient E&M: [id number] Subs Hosp L2
--- NOTE | 2020-03-23 14:41 | CASEMGMT ---
Addendum entered by Saniya Thrasher 03/23/20 15:35: Pt does not qualilfy for home oxygen at this time. Per speech, pt should have further OP therapy and pt provided with script for [facility] but states 'I am not going to do that.' Pt voices no further questions/concerns/needs at this time. Daniela GARCIA CM Original Note: Per Dulce Maria VALENTE, pt is supposed to wear home oxygen but pt states he used to be with [facility]. Call to [facility](they took over all [facility]'s pt's when they closed) and per Hawa the last order they have for pt was in [address] Lam and that was done by [facility]. Hawa states that pt only got tubing and a cannula at that time and states all tanks would be outdated at this time. Per Hawa, pt will need re-qualified at this time. Dulce Maria VALENTE aware, voices understanding. Pt to have ambulatory pulse ox at this time. Daniela GARCIA CM
--- NOTE | 2020-03-23 14:55 | PCM.DC ---
- Discharge Diagnoses Current Active Problems: Current Active and Chronic Problems (Last Reviewed 03/23/20 @ 06:[address] Kedar Velez MD) Hypertensive emergency (Acute) Encephalopathy acute (Acute) Chronic atrial fibrillation (Chronic) You will use the following diet at home:: No restrictions Discharge Activity: Return to Normal Activity Call your doctor if you observe: Shortness of breath, Dizziness, Fainting spells, Chest pain Allergies/Adverse Reactions: Allergies amlodipine [From Norvasc] Adverse Reaction (Verified 03/23/20 00:58) elevated bilirubin disopyramide phosphate [From Norpace] Adverse Reaction (Verified 03/23/20 00:58) Other STOOL TURNS WHITE AND BILIRUBIN WENT WAY UP metoprolol Adverse Reaction (Verified 03/23/20 00:58) SOB Medications to take at Discharge Albuterol Sulfate [Proventil Hfa] 1 spray IH Q8 04/25/15 finasteride 5 mg tablet 5 mg PO QDAY 11/25/17 albuterol sulfate 2.5 mg INHALATION .qid PRN ml 11/26/17 fluticasone propionate 250 mcg/actuation blister powder for inhalation 1 inh INHALATION BID 11/26/17 ipratropium bromide 0.02 % solution for inhalation 0.5 mg INHALATION Q6H PRN 11/26/17 magnesium oxide 400 mg (241.3 mg magnesium) tablet 400 mg PO TID tab 11/26/17 carvedilol 12.5 mg tablet 12.5 mg PO QAM tab 07/16/19 carvedilol 25 mg tablet 25 mg PO QPM tab 07/16/19 Atorvastatin Calcium [Lipitor] 20 mg PO QHS #30 tab 03/23/20 Warfarin Sodium 4 mg PO DAILY 03/23/20 The following prescriptions were given: Atorvastatin Calcium [Lipitor] 20 mg PO QHS #30 tab Transmission Status: Pending to [id number] Primary Care Physician: Marcos Lam MD [Primary Care Provider] - Please follow up with your Primary Care Physician in: 1 Week Test Results: Test results from this visit will be discussed in further detail at your follow-up appointment, if applicable. Proposed Discharge Date: 03/23/20
--- NOTE | 2020-03-23 14:56 | DS.PCM_ITS ---
<Mirna Alvarado SOLAR PANEL INSTALLATION SUPERVISOR - Last Filed: 03/23/20 15:02> Discharge Date and Diagnosis Date of Admission: 03/23/20 Date of Discharge: 03/23/20 - Primary Discharge Diagnosis Acute Problems: Active Problems (Last Reviewed 03/23/20 @ 06:[address] Kedar Velez MD) 1. Acute encephalopathy 2. Hypertensive urgency 3. Chronic hypoxic respiratory failure secondary to chronic COPD 4. Chronic alcohol dependence 5. Chronic atrial fibrillation 6. Tobacco dependence 7. DAQUAN - Secondary Discharge Diagnosis Chronic Problems: Chronic Problems (Last Reviewed 03/23/20 @ 06:[address] Kedar Velez MD) Chronic atrial fibrillation (Chronic) Essential (primary) hypertension (Chronic) Hypertriglyceridemia (Chronic) Chronic diastolic (congestive) heart failure (Chronic) Severe chronic obstructive pulmonary disease (Chronic) Hyperlipidemia (Chronic) continuous churn buttermaker current use of anticoagulant (Chronic) Hospital Course and Treatment Imaging Results: Diagnostic Data Brain CT 03/23/20 00:46 IMPRESSION: 1. No intracranial hemorrhage or acute intracranial disease identified. 2. White matter small vessel chronic ischemic change and age-appropriate cerebral cortical atrophy. 3. Chronic sinusitis with worsening of ethmoid, maxillary, and sphenoid sinusitis on the right compared to prior. Individualized dose optimization techniques were used for this CT. at 0117 Reported and signed by: Venkat Sebastian MD N.B. : The above information has been verbally conveyed by Venkat Sebastian to er staff, , on 03/23/2020 01:07:30 (ET). Electronically Signed: Venkat Sebastian, at 1:16 EDT Tel , Service support , ADDENDUM: 03/23/20 0124 IMPRESSION: 1. No intracranial hemorrhage or acute intracranial disease identified. 2. White matter small vessel chronic ischemic change and age-appropriate cerebral cortical atrophy. 3. Chronic sinusitis with worsening of ethmoid, maxillary, and sphenoid sinusitis on the right compared to prior. Individualized dose optimization techniques were used for this CT. at 0117 Reported and signed by: Venkat Sebastian MD N.B. : The above information has been verbally conveyed by Venkat Sebastian to EUGENIO maldonado, on 03/23/2020 01:07:30 (ET). Electronically Signed: Venkat Sebastian at 1:16 EDT Tel , Service support , Chest X-Ray 03/23/20 00:46 IMPRESSION: No evidence for acute cardiopulmonary pathology. Electronically Signed: Matthew Parson MD at 2:59 EDT , Service support , Head/Neck CTA 03/23/20 01:57 IMPRESSION: 1. Negative CTA brain and [place]. No arterial occlusion or acute disease. 2. Hemodynamically insignificant 40% short length stenoses of the proximal right and left internal carotid arteries. 3. Normal patency and flow of bilateral vertebral arteries. Individualized dose optimization techniques were used for this CT. at 0300 Reported and signed by: Venkat Sebastian MD N.B. : The above information has been verbally conveyed by Venkat Sebastian to [place] Andrew MD, on 03/23/2020 02:48:55 (ET). Electronically Signed: Venkat Sebastian at 2:59 EDT Tel , Service support , ADDENDUM: 03/23/20 0308 IMPRESSION: 1. Negative CTA brain and [place]. No arterial occlusion or acute disease. 2. Hemodynamically insignificant 40% short length stenoses of the proximal right and left internal carotid arteries. 3. Normal patency and flow of bilateral vertebral arteries. Individualized dose optimization techniques were used for this CT. at 0300 Reported and signed by: Venkat Sebastian MD N.B. : The above information has been verbally conveyed by Venkat Sebastian to [place] Andrew MD, on 03/23/2020 02:48:55 (ET). Electronically Signed: Venkat Sebastian, at 2:59 EDT Tel , Service support , Brain MRI 03/23/20 05:39 IMPRESSION: Involutional changes of the brain, as described above. Electronically Signed: Alex Marroquin MD at 12:33 EDT Tel , Service support , Operations: None Procedures: None Summary of Care Provided: The patient is a 79 year old M admitted 03/23/2020 due to confusion. 1. Acute encephalopathy-UA and chest x-ray unremarkable. Brain CT negative for acute process. CTA unremarkable. MRI of brain negative for CVA. Echocardiogram demonstrates an EF of 60%. Patient has been alert and oriented during admission. He reports he has had an episode similar to this in the past. Patient previously prescribed continuous supplemental oxygen 2 L nasal cannula and he has not had his tanks filled in 3 years. He states he uses his oxygen as needed at home and monitors his pulse ox intermittently. I do suspect patient is becoming hypoxic, contributing to transient confusion. He has no neurologic symptoms or focal deficits. Will complete walking pulse ox prior to discharge and keep on appropriate oxygen supplementation at discharge with further outpatient follow-up. Follow-up with PCP in 1 week. 2. Hypertensive urgency-now stable. Continue home carvedilol regimen. 3. Chronic hypoxic respiratory failure secondary to chronic COPD-chest x-ray without acute process. Albuterol and DuoNeb aerosols. 4. Chronic alcohol dependence- CIWA. No evidence of withdrawal. 5. Chronic atrial fibrillation-on anticoagulation with Coumadin. Continue carvedilol. INR therapeutic. 6. Tobacco dependence- Encouraged cessation. 7. DAQUAN- continue cpap QHS. General: No apparent distress, Lethargic HEENT: Atraumatic, PERRLA, EOMI, Normocephalic Oral: Dry Mucosa Neck: Supple, No JVD, Negative Carotid Bruits Lungs: Clear to auscultation, Diminished Cardiovascular: Regular rate, No murmurs Abdomen: Bowel Sounds Present, Soft, Non Tender, Non-Distended Extremities: No clubbing, No cyanosis, No edema, Capillary Refill Less than 3 Seconds Skin: No rashes, No breakdown Musculoskeletal: No Tenderness to Palpation of Joints or Extremities Neurological: Cranial nerves II-XII grossly intact, Neuro grossly intact Psych/Mental Status: Normal Affect, Appropriate Patient seen and examined prior to discharge. Physical assessment as noted above. Patient is stable for discharge with follow up recommendations as noted above. This patient was seen by JUANA Guerra under the supervision of Dr. Ha. - Physical Exam Vitals/I&O's: Vital Signs Temp Pulse Resp BP Pulse Ox 97.8 F 80 18 107/49 L 97 03/23/20 10:35 03/23/20 10:35 03/23/20 10:35 03/23/20 10:35 03/23/20 10:35 Oxygen Flow Rate (L/min) 3 Oxygen Delivery Method Nasal Cannula Weight: 197 lb 12.074 oz Body Mass Index (BMI) 29.2 Finger Stick Blood Glucose 106 Intake and Output for Last 24 Hours 03/21/20 03/22/20 03/23/20 23:59 23:59 23:59 Intake Total 1360 / 1360 Balance 1360 / 1360 Laboratory Results 03/23/20 00:50: WBC 5.9, RBC 4.72, Hgb 15.6, Hct 47.7, MCV 101.1 H, MCH 33.1 H, MCHC 32.7, RDW Std Deviation 51.3 H, RDW Coeff of Caterina 13.7, Plt Count 175, MPV 10.9, Immature Gran % (Auto) 0.200, Neut % (Auto) 52.2, Lymph % (Auto) 22.8, [place] % (Auto) 8.6, Eos % (Auto) 15.2 H, Baso % (Auto) 1.0, Absolute Neuts (auto) 3.1, Absolute Lymphs (auto) 1.35, Nucleated RBC % 0 03/23/20 00:50: PT 27.3 H, INR 2.6, APTT 36.5 H 03/23/20 00:50: Sodium 136, Potassium 4.4, Chloride 100, Carbon Dioxide 33.0 H, Anion Gap 3 L, BUN 14, Creatinine 0.85, Estim Creat Clear Calc 73.82, Est GFR (MDRD) Af Amer 112, Est GFR (MDRD) Non-Af 93, BUN/Creatinine Ratio 16.5, Glucose 116 H, Calcium 8.8, Troponin I < 0.015 03/23/20 00:50: Hemoglobin A1c 5.3 03/23/20 00:50: Triglycerides 203 H, Cholesterol 204 H, LDL Cholesterol 125, VLDL Cholesterol 41 H, HDL Cholesterol 38 L Current Medications Acetaminophen (Tylenol) 650 mg PO Q6H PRN PRN PRN Reason: Pain Score 1-10/Temp > 100.7 F Albuterol Sulfate (Ventolin Aerosols) 2.5 mg INHALATION Q2H PRN PRN PRN Reason: SOB/WHEEZING Albuterol/Ipratropium (Duoneb) 3 ml INHALATION Q4HWA.RT [facility] Last Admin: 03/23/20 10:31 Dose: 3 ml Documented by: Atorvastatin Calcium (Lipitor) 20 mg PO QHS [facility] Budesonide (Pulmicort Aerosol) 0.5 mg INHALATION Q12H.RT [facility] Last Admin: 03/23/20 06:48 Dose: 0.5 mg Documented by: Carvedilol (Coreg) 12.5 mg PO QAM [facility] Last Admin: 03/23/20 10:49 Dose: Not Given Documented by: Carvedilol (Coreg) 25 mg PO QPM [facility] Finasteride (Proscar) 5 mg PO DAILY [facility] Last Admin: 03/23/20 10:39 Dose: 5 mg Documented by: Guaifenesin (Mucinex) 600 mg PO BID [facility] Last Admin: 03/23/20 10:39 Dose: 600 mg Documented by: Labetalol HCl (Trandate) 10 mg IV Q4H PRN PRN PRN Reason: sbp > 160 or DBP > 120 Magnesium Chloride (Mag64) 128 mg PO TID [facility] Last Admin: 03/23/20 06:27 Dose: 128 mg Documented by: Melatonin (Melatonin) 3 mg PO QHS PRN PRN PRN Reason: INSOMNIA Ondansetron HCl (Zofran) 4 mg IV Q8H PRN PRN PRN Reason: NAUSEA/VOMITING Senna/Docusate Sodium (Senokot-S, Padmini-Colace) 2 tablet PO BID PRN PRN PRN Reason: Constipation Sodium Chloride () 10 - 40 ml IV UD PRN PRN Reason: SALINE FLUSH Warfarin Sodium (Jantoven) 4 mg PO DAILY@1700 [facility]; Protocol Discharge Diet: No Restrictions Discharge Activity: Return to Normal Activity Call your doctor if you observe: Shortness of breath, Dizziness, Fainting spells, Chest pain Home Medications: Medications to take at Discharge Albuterol Sulfate [Proventil Hfa] 1 spray IH Q8 04/25/15 finasteride 5 mg tablet 5 mg PO QDAY 11/25/17 albuterol sulfate 2.5 mg INHALATION .qid PRN ml 11/26/17 fluticasone propionate 250 mcg/actuation blister powder for inhalation 1 inh INHALATION BID 11/26/17 ipratropium bromide 0.02 % solution for inhalation 0.5 mg INHALATION Q6H PRN 11/26/17 magnesium oxide 400 mg (241.3 mg magnesium) tablet 400 mg PO TID tab 11/26/17 carvedilol 12.5 mg tablet 12.5 mg PO QAM tab 07/16/19 carvedilol 25 mg tablet 25 mg PO QPM tab 07/16/19 Atorvastatin Calcium [Lipitor] 20 mg PO QHS #30 tab 03/23/20 Warfarin Sodium 4 mg PO DAILY 03/23/20 Following Prescriptions Were Given to Patient: Atorvastatin Calcium [Lipitor] 20 mg PO QHS #30 tab Transmission Status: Received by [id number] Primary Care Physician: Marcos Lam MD [Primary Care Provider] - Please follow up with your Primary Care Physician in: 1 Week Disposition: Home Minutes spent on discharge:: 35 Patient Condition:: Stable Medical Necessity - Tobacco Use Smoking Status: Current every day smoker Tobacco Use: Cigarettes Meaningful Use Info Meaningful Use Diagnoses (Choose all that apply): None applicable <[place] - Last Filed: 03/23/20 15:19> Discharge Date and Diagnosis - Secondary Discharge Diagnosis Chronic Problems: Chronic Problems (Last Updated 03/23/20 @ 14:56 by Mirna Alvarado NP, [employer]AR PANEL INSTALLATION SUPERVISOR-C) Chronic atrial fibrillation (Chronic) Essential (primary) hypertension (Chronic) Hypertriglyceridemia (Chronic) Chronic diastolic (congestive) heart failure (Chronic) Severe chronic obstructive pulmonary disease (Chronic) Hyperlipidemia (Chronic) half-way current use of anticoagulant (Chronic) Hospital Course and Treatment Summary of Care Provided: This patient was seen in conjunction with Mirna Alvarado NP. I have independently interviewed and examined the patient and reviewed pertinent historical, laboratory, and other data. Please refer to her note for patient's presentation, findings, and recommendations. 79-year-old with past medical history of chronic atrial fibrillation, hypertension, chronic diastolic CHF, DAQUAN who presented with confusion that started 2 hours before presentation. Patient could not name familiar objects. He forgot the name of 1 of his children as well as he complains of seeing blind spots. His confusion appears to have been decreasing in the emergency department. Patient had [facility] tele-neurology consult. Patient was felt not to be a TPA candidate. He was admitted to telemetry floor and monitored. No acute events. He had an MRI of the head that was unremarkable. Patient was also managed on breathing treatments. He was not started on steroids. Patient was advised to continue to use his oxygen all the time. On the day of discharge, patient was seen and examined. Patient denied any new complaints. Physical Exam: Gen: Comfortable, not pale, not jaundiced, alert oriented x3 CVS:HS I +II, regular, no murmurs RESP: Diminished at lung bases GI: BS present and normal, nontender, no palpable organs EXT:No edema RECORD CUTTER: Grossly intact - Physical Exam Vitals/I&O's: Vital Signs Temp Pulse Resp BP Pulse Ox 97.8 F 80 18 107/49 L 97 03/23/20 10:35 03/23/20 10:35 03/23/20 10:35 03/23/20 10:35 03/23/20 10:35 Oxygen Flow Rate (L/min) 3 Oxygen Delivery Method Nasal Cannula Weight: 89.7 kg Body Mass Index (BMI) 29.2 Finger Stick Blood Glucose 106 Intake and Output for Last 24 Hours 03/21/20 03/22/20 03/23/20 23:59 23:59 23:59 Intake Total 1360 / 1360 Balance 1360 / 1360 Laboratory Results 03/23/20 00:50: WBC 5.9, RBC 4.72, Hgb 15.6, Hct 47.7, MCV 101.1 H, MCH 33.1 H, MCHC 32.7, RDW Std Deviation 51.3 H, RDW Coeff of Caterina 13.7, Plt Count 175, MPV 10.9, Immature Gran % (Auto) 0.200, Neut % (Auto) 52.2, Lymph % (Auto) 22.8, [place] % (Auto) 8.6, Eos % (Auto) 15.2 H, Baso % (Auto) 1.0, Absolute Neuts (auto) 3.1, Absolute Lymphs (auto) 1.35, Nucleated RBC % 0 03/23/20 00:50: PT 27.3 H, INR 2.6, APTT 36.5 H 03/23/20 00:50: Sodium 136, Potassium 4.4, Chloride 100, Carbon Dioxide 33.0 H, Anion Gap 3 L, BUN 14, Creatinine 0.85, Estim Creat Clear Calc 73.82, Est GFR (MDRD) Af Amer 112, Est GFR (MDRD) Non-Af 93, BUN/Creatinine Ratio 16.5, Glucose 116 H, Calcium 8.8, Troponin I < 0.015 03/23/20 00:50: Hemoglobin A1c 5.3 03/23/20 00:50: Triglycerides 203 H, Cholesterol 204 H, LDL Cholesterol 125, VLDL Cholesterol 41 H, HDL Cholesterol 38 L Current Medications Acetaminophen (Tylenol) 650 mg PO Q6H PRN PRN PRN Reason: Pain Score 1-10/Temp > 100.7 F Albuterol Sulfate (Ventolin Aerosols) 2.5 mg INHALATION Q2H PRN PRN PRN Reason: SOB/WHEEZING Albuterol/Ipratropium (Duoneb) 3 ml INHALATION Q4HWA.RT [facility] Last Admin: 03/23/20 10:31 Dose: 3 ml Documented by: Atorvastatin Calcium (Lipitor) 20 mg PO QHS [facility] Budesonide (Pulmicort Aerosol) 0.5 mg INHALATION Q12H.RT [facility] Last Admin: 03/23/20 06:48 Dose: 0.5 mg Documented by: Carvedilol (Coreg) 12.5 mg PO QAM [facility] Last Admin: 03/23/20 10:49 Dose: Not Given Documented by: Carvedilol (Coreg) 25 mg PO QPM [facility] Finasteride (Proscar) 5 mg PO DAILY [facility] Last Admin: 03/23/20 10:39 Dose: 5 mg Documented by: Guaifenesin (Mucinex) 600 mg PO BID [facility] Last Admin: 03/23/20 10:39 Dose: 600 mg Documented by: Labetalol HCl (Trandate) 10 mg IV Q4H PRN PRN PRN Reason: sbp > 160 or DBP > 120 Magnesium Chloride (Mag64) 128 mg PO TID [facility] Last Admin: 03/23/20 06:27 Dose: 128 mg Documented by: Melatonin (Melatonin) 3 mg PO QHS PRN PRN PRN Reason: INSOMNIA Ondansetron HCl (Zofran) 4 mg IV Q8H PRN PRN PRN Reason: NAUSEA/VOMITING Senna/Docusate Sodium (Senokot-S, Padmini-Colace) 2 tablet PO BID PRN PRN PRN Reason: Constipation Sodium Chloride () 10 - 40 ml IV UD PRN PRN Reason: SALINE FLUSH Warfarin Sodium (Jantoven) 4 mg PO DAILY@1700 [facility]; Protocol OBSV E&M: 99250 Observation care discharge
== END 2020-03-23 14:55 | disposition home or self-care (01) ==
LOC: ED 03:13 → PCU 03:22
PROVIDERS: Admitting Provider Hospitalist; Emergency Provider Emergency Medicine; PCP Family Medicine; Visit Provider Internal Medicine
DX: I16.1 Hypertensive emergency (principal); G93.40 Encephalopathy, unspecified; I48.20 Chronic atrial fibrillation, unspecified; I11.0 Hypertensive heart disease with heart failure; E78.5 Hyperlipidemia, unspecified; I50.32 Chronic diastolic (congestive) heart failure; J96.11 Chronic respiratory failure with hypoxia; K21.9 Gastro-esophageal reflux disease without esophagitis; J44.1 Chronic obstructive pulmonary disease with (acute) exacerbation; F10.20 Alcohol dependence, uncomplicated; G47.33 Obstructive sleep apnea (adult) (pediatric); R29.700 NIHSS score 0; F17.210 Nicotine dependence, cigarettes, uncomplicated; Z79.01 Long term (current) use of anticoagulants; Z79.899 Other long term (current) drug therapy; Z79.51 Long term (current) use of inhaled steroids; Z86.73 Personal history of transient ischemic attack (TIA), and cerebral infarction without residual deficits
CPT/HCPCS: 70450; 70496; 70498; 70551; 71045; 80048; 80061; 83036; 84484; 85025; 85610; 85730; 92523; 92610; 93005; 93306; 94640; 96361; 96374; 99218; 99285; 99406; J7030; Q9967; A4216; G0378

== ENCOUNTER → 2020-04-02 | Outpatient (CLI) | payer MEDICARE, OTHER, SELFPAY ==
[2020-03-23 15:58] VITALS: BMI 29.2
== END | disposition home or self-care (01) ==
LOC: LAB 11:12
PROVIDERS: PCP Family Medicine; Referring Provider Family Medicine; Visit Provider Family Medicine
DX: I48.20 Chronic atrial fibrillation, unspecified (principal); Z79.01 Long term (current) use of anticoagulants
CPT/HCPCS: 36416; 85610

== ENCOUNTER → 2020-04-26 | Outpatient (CLI) | payer MEDICARE, OTHER, SELFPAY ==
[2020-03-23 15:58] VITALS: BMI 29.2
[2020-04-26 18:05] LABS: Anion Gap 6 (5-15); BUN 15 mg/dL (7-18); BUN/Creat Ratio 17.8 RATIO (10-20); Chloride 95 mmol/L (98-107); Creatinine, Serum 0.84 mg/dL (0.70-1.30); EST Glomerular Filtration Rate 93 mL/min (>60); Est Glom Filt Rate - Afr Amer 113 mL/min (>60); Glucose 97 mg/dL (74-106); Potassium 4.4 mmol/L (3.5-5.1); Sodium Level 133 mmol/L (136-145)
== END | disposition home or self-care (01) ==
LOC: MTLAB 16:29
PROVIDERS: PCP Family Medicine; Referring Provider Specialist; Visit Provider Specialist
DX: I48.20 Chronic atrial fibrillation, unspecified (principal); J44.9 Chronic obstructive pulmonary disease, unspecified; I11.0 Hypertensive heart disease with heart failure; I50.32 Chronic diastolic (congestive) heart failure
CPT/HCPCS: 36415; 80048

== ENCOUNTER 2020-09-14 15:14 | Outpatient (RCR) | payer MEDICARE, OTHER, SELFPAY ==
[2020-03-23 15:58] VITALS: BMI 29.2
[2020-09-14 18:03] LABS: Prothrombin Time (Protime)PT. 30.9 SECONDS (11.7-14.9)
== END 2020-09-14 18:00 | disposition home or self-care (01) ==
LOC: MTLAB 15:14
PROVIDERS: Nurse Practitioner Adult Health; PCP Family Medicine; Referring Provider Specialist; Visit Provider Specialist
DX: I48.20 Chronic atrial fibrillation, unspecified (principal); R97.20 Elevated prostate specific antigen [PSA]; Z79.01 Long term (current) use of anticoagulants
CPT/HCPCS: 36415; 84153; 85610

== ENCOUNTER → 2020-10-17 16:02 | Outpatient (CLI) | payer MEDICARE, OTHER, SELFPAY ==
[2020-10-17 15:00] VITALS: BMI 27.6
--- NOTE | 2020-10-17 16:15 | RAD_ITS ---
STUDY: X-RAY CHEST REASON FOR EXAM: Male, 80 years old. Shortness of breath TECHNIQUE: PA and lateral views of the chest. COMPARISON: 03/23/2020 FINDINGS: The lungs are clear and expanded. Elevated right hemidiaphragm which is unchanged. Normal size heart. Normal mediastinum and evelin. Normal visualized pulmonary arteries. Normal visualized aortic arch and descending thoracic aorta. Normal visualized thoracic spine. Normal visualized ribs, clavicles, and shoulders. There is no demonstrated abnormality of the visualized soft tissue structures of the upper abdomen. RAD/Chest PA and Lateral IMPRESSION: No active disease. Electronically Signed: Alex Marroquin MD at 9:07 EDT Tel , Service support ,
[2020-10-17 17:38] LABS: Absolute Lymphocyte Count 1.23 X10^3/uL (0.83-4.51); Absolute Neutrophil Count 6.1 X10^3/uL (2.0-7.7); Basophil# 0.05 X10^3/uL; Basophil% 0.5 % (0-1); Eosinophil# 1.13 X10^3/uL; Eosinophils% 12.3 % (0-5); Hematocrit 46.4 % (40-54); Lymphocyte # 1.23 X10^3/ul (4.0); Lymphocyte % 13.4 % (19-41); Mean Corp Hgb Conc 32.3 g/dL (32-36); Mean Corpuscular Hgb 32.3 pg (27.0-32.0); Mean Corpuscular Volume 99.8 fL (80-94); Mean Platelet Vol. 11.1 fl (6.2-12.0); Monocyte% 6.5 % (0-10); NRBC Flagged by Analyzer 0 % (0-5); Neutrophil # 6.14 X10^3/uL (2.7-7.7); Neutrophil % 67.1 % (47-70); Platelet Count 208 K/mm3 (150-450); RBC Distribution Width CV 14.3 % (11.6-14.6); RBC Distribution Width SD 52.6 fl (35.1-43.9); Red Blood Count 4.65 M/mm3 (4.6-6.2); White Blood Count 9.2 K/mm3 (4.4-11.0)
[2020-10-17 17:42] LABS: International Normalized Ratio 2.5; Prothrombin Time (Protime)PT. 26.3 SECONDS (11.7-14.9)
[2020-10-17 18:05] LABS: BNP,B-Type NATRIURETIC PEPTIDE 106.6 pg/mL (0-100)
[2020-10-17 18:30] LABS: Anion Gap 4 (5-15); BUN 14 mg/dL (7-18); BUN/Creat Ratio 19.7 RATIO (10-20); Calcium,Total 8.8 mg/dL (8.5-10.1); Chloride 96 mmol/L (98-107); Creatinine, Serum 0.71 mg/dL (0.70-1.30); EST Glomerular Filtration Rate 113 mL/min (>60); Est Glom Filt Rate - Afr Amer 137 mL/min (>60); Glucose 84 mg/dL (74-106); Potassium 4.2 mmol/L (3.5-5.1); Sodium Level 132 mmol/L (136-145)
== END ==
PROVIDERS: Specialist; PCP Family Medicine; Referring Provider Nurse Practitioner Family; Visit Provider Nurse Practitioner Family
DX: I50.32 Chronic diastolic (congestive) heart failure (principal); R06.02 Shortness of breath; G45.9 Transient cerebral ischemic attack, unspecified; I48.20 Chronic atrial fibrillation, unspecified; Z79.01 Long term (current) use of anticoagulants
CPT/HCPCS: 36415; 71046; 80048; 83880; 85025; 85610

== ENCOUNTER 2020-11-30 14:29 | Outpatient (RCR) | payer MEDICARE, OTHER, SELFPAY ==
[2020-03-23 15:58] VITALS: BMI 29.2
[2020-11-24 15:34] VITALS: BMI 27.0
[2020-11-30 14:46] LABS: INR Fingerstick 2.4; Prothrombin Time Fingerstick 27.1 SEC (11.9-14.4)
== END 2020-11-30 18:00 | disposition home or self-care (01) ==
LOC: MTLAB 14:29
PROVIDERS: PCP Family Medicine; Referring Provider Specialist; Visit Provider Specialist
DX: I48.20 Chronic atrial fibrillation, unspecified (principal); Z79.01 Long term (current) use of anticoagulants
CPT/HCPCS: 36416; 85610

== ENCOUNTER → 2020-12-19 16:41 | Outpatient (CLI) | payer MEDICARE, OTHER, SELFPAY ==
[2020-11-24 15:34] VITALS: BMI 27.0
== END ==
PROVIDERS: PCP Family Medicine; Referring Provider Urology; Visit Provider Urology
DX: N41.0 Acute prostatitis (principal)
CPT/HCPCS: 36415; 84153; G0103

== ENCOUNTER → 2021-02-14 16:46 | Outpatient (CLI) | payer MEDICARE, OTHER, SELFPAY ==
[2021-01-26 10:07] VITALS: BMI 27.0
[2021-02-14 17:58] LABS: International Normalized Ratio 2.6
== END ==
PROVIDERS: PCP Family Medicine; Referring Provider Family Medicine; Visit Provider Specialist
DX: I48.20 Chronic atrial fibrillation, unspecified (principal); Z79.01 Long term (current) use of anticoagulants
CPT/HCPCS: 36415; 85610

== ENCOUNTER → 2021-02-23 14:55 | Outpatient (CLI) | payer MEDICARE, OTHER, SELFPAY ==
[2021-01-26 10:07] VITALS: BMI 27.0
--- NOTE | 2021-02-23 14:59 | CT_ITS ---
STUDY: CT ABDOMEN AND PELVIS WITH CONTRAST REASON FOR EXAM: Male, 80 years old. Persistent diarrhea and hx of colon polyps. RADIATION DOSAGE (If Supplied By Facility): CTDIvol = ( 24.82 ) mGy, DLP = ( 968.01 ) mGycm TECHNIQUE: Transaxial images were obtained from the dome of the diaphragm to the symphysis pubis with oral contrast. Oral and amp; IV Readi-CAT and amp; 100mL Isovue-370 was administered. Sagittal and coronal images were reconstructed. Individualized dose optimization techniques were used for this CT. COMPARISON: Comparison is made with prior study dated 05/18/2016. FINDINGS: Mild linear scarring at the lung bases. Coronary artery calcification. There is decreased attenuation of the liver consistent with steatosis. Normal gallbladder and extrahepatic biliary system. Normal spleen. Normal pancreas. Stable small bilateral adrenal adenomas. Normal right kidney. Normal left kidney. Normal visualized stomach. Normal small intestine. Diffuse circumferential wall thickening of the right hemicolon. Mild degree of thickening of the sigmoid colon suggestive of a colitis. The appendix is visualized and appears normal. There is diffuse atherosclerotic calcification of the abdominal aorta and its major visceral branches, without a demonstrated aneurysm. Normal inferior vena cava. Normal retroperitoneum. Diffuse bladder wall thickening. There is enlargement of the prostate gland. The prostate measures 5.3 cm x 5.4 cm. This causes indentation at the bladder base. Normal abdominal wall. There are mild degenerative changes of the visualized lumbar spine. CT/Abdomen/Pelvis WITH Contrast IMPRESSION: Colitis of the right hemicolon as well as the sigmoid colon. Electronically Signed: Reuben Painting MD at 15:46 EDT , Service support ,
[2021-02-23 15:20] LABS: CREATININE FINGERSTICK 0.8 mg/dL (0.70-1.30); EGFR FINGERSTICK > 60.0000 mL/min (>60)
== END ==
PROVIDERS: PCP Family Medicine; Referring Provider Family Medicine; Visit Provider Family Medicine
DX: K52.9 Noninfective gastroenteritis and colitis, unspecified (principal)
CPT/HCPCS: 74177; Q9967

== ENCOUNTER → 2021-02-24 12:53 | Outpatient (CLI) | payer MEDICARE, OTHER, SELFPAY ==
[2021-01-26 10:07] VITALS: BMI 27.0
--- NOTE | 2021-02-24 14:27 | PFTCOMP ---
COMPLETE PULMONARY FUNCTION TEST INTERPRETATION Brief HPI: Patient is an 80 year old male, currently under the care of myself, who presents to [facility] for complete pulmonary function tests secondary to diagnosis of COPD. Respiratory therapist reports good effort and reproducible results. Interpretation: Forced expiration spirometry shows a severe large airways obstructive ventilatory defect with an FEV1 of 38% predicted. There is no significant bronchodilator response by strict ATS criteria. Spirograms are of good quality and plateau slowly, indicating slowly emptying areas of the lungs. The respiratory flow volume loop shows decreased expiratory flow rates at all lung volumes consistent with airway obstruction. Lung volumes by body plethysmography show a decreased total lung capacity at 5.15 L, 81% predicted. All other lung volumes are reduced symmetrically. Diffusion capacity by carbon monoxide is normal at 102% predicted. The airway resistance is elevated. No previous pulmonary function tests were available for review. Impression: Irreversible severe mixed ventilatory defect with relatively preserved diffusion capacity
== END ==
PROVIDERS: PCP Family Medicine; Referring Provider Internal Medicine Critical Care Medicine; Visit Provider Internal Medicine Critical Care Medicine
DX: J44.9 Chronic obstructive pulmonary disease, unspecified (principal)
CPT/HCPCS: 94060; 94726; 94729

== ENCOUNTER → 2021-02-28 17:19 | Outpatient (CLI) | payer MEDICARE, OTHER, SELFPAY ==
[2021-02-28 17:43] LABS: Absolute Lymphocyte Count 1.22 X10^3/uL (0.83-4.51); Absolute Neutrophil Count 2.7 X10^3/uL (2.0-7.7); Basophil# 0.05 X10^3/uL; Eosinophil# 0.77 X10^3/uL; Eosinophils% 14.8 % (0-5); Hematocrit 45.2 % (40-54); Hemoglobin 15.2 g/dL (13.0-16.5); Lymphocyte # 1.22 X10^3/ul (0.83-4.51); Lymphocyte % 23.5 % (19-41); Mean Corp Hgb Conc 33.6 g/dL (32-36); Mean Platelet Vol. 10.4 fl (6.2-12.0); Monocyte# 0.43 X10^3/uL; Monocyte% 8.3 % (0-10); NRBC Flagged by Analyzer 0 % (0-5); Neutrophil # 2.72 X10^3/uL (2.7-7.7); Neutrophil % 52.2 % (47-70); Platelet Count 154 K/mm3 (150-450); RBC Distribution Width CV 14.5 % (11.6-14.6); RBC Distribution Width SD 52.8 fl (35.1-43.9); Red Blood Count 4.61 M/mm3 (4.6-6.2); White Blood Count 5.2 K/mm3 (4.4-11.0)
[2021-02-28 17:54] LABS: Erythrocyte Sedimentation Rate 29 mm/hr (0-20)
[2021-02-28 19:01] LABS: Lactic Acid 0.6 mmol/L (0.4-1.9)
[2021-02-28 19:36] LABS: ALB/GLOB Ratio 0.8 RATIO (0.9-2.4); AST(SGOT) 14 U/L (15-37); Alanine Aminotransfer ALT/SGPT 22 U/L (16-61); Albumin, Serum 3.3 g/dL (3.2-5.0); Alkaline Phosphatase 57 U/L (45-117); Anion Gap 2 (5-15); BUN 14 mg/dL (7-18); BUN/Creat Ratio 19.4 RATIO (10-20); Calcium,Total 8.8 mg/dL (8.5-10.1); Chloride 98 mmol/L (98-107); Creatinine, Serum 0.72 mg/dL (0.70-1.30); EST Glomerular Filtration Rate 111 mL/min (>60); Est Glom Filt Rate - Afr Amer 134 mL/min (>60); Globulin 4.3 g/dL (2.2-4.2); Glucose 89 mg/dL (74-106); Potassium 4.4 mmol/L (3.5-5.1); Protein, Total 7.6 g/dL (6.4-8.2); Sodium Level 134 mmol/L (136-145)
== END ==
PROVIDERS: PCP Family Medicine; Referring Provider Family Medicine; Visit Provider Family Medicine
DX: K52.9 Noninfective gastroenteritis and colitis, unspecified (principal)
CPT/HCPCS: 36415; 80053; 82378; 83605; 85025; 85652; 86141

== ENCOUNTER → 2021-03-02 | Outpatient (CLI) | payer MEDICARE, OTHER, SELFPAY ==
[2021-03-07 15:26] LABS: Calprotectin, Stool <16 ug/g (0-120)
== END | disposition home or self-care (01) ==
LOC: LABSPEC 13:51
PROVIDERS: PCP Family Medicine; Referring Provider Family Medicine; Visit Provider Family Medicine
DX: K52.9 Noninfective gastroenteritis and colitis, unspecified (principal)
CPT/HCPCS: 83630; 83993

== ENCOUNTER 2021-03-08 05:08 | Day surgery (SDC) | payer MEDICARE, OTHER, SELFPAY ==
[2021-03-08] VITALS (7 sets, daily range): BP systolic 126–170; BP diastolic 66–113; PULSE 95–118; RESP 16–30; TEMP 36.1–37.3; O2SAT 95–98; BMI 26.7
[2021-03-08] MEDS: Lactated Ringers 1,000 ML 100 ML IV (05:30)
--- NOTE | 2021-03-08 05:47 | HP.PCM_ITS ---
History and Physical Date of Admission: 03/08/21 Intake Visit Reasons: abnormal abd CT Chief Complaint: Abnormal CT/C-Scope Drapery Head Former Required: No Accompanied by: Is patient in pain?: No Allergies amlodipine [From Norvasc] Adverse Reaction (Verified 03/03/21 11:46) elevated bilirubin disopyramide phosphate [From Norpace] Adverse Reaction (Verified 03/03/21 11:46) Other metoprolol Adverse Reaction (Verified 03/03/21 11:46) SOB Medications albuterol sulfate 1 spray IH Q8 04/25/15 [History Confirmed 03/03/21] finasteride 5 mg tablet 5 mg PO QDAY 11/25/17 [History Confirmed 03/03/21] albuterol sulfate 2.5 mg INHALATION .qid PRN ml 11/26/17 [History Confirmed 03/03/21] fluticasone propionate 250 mcg/actuation blister powder for inhalation 1 inh INHALATION BID 11/26/17 [History Confirmed 03/03/21] ipratropium bromide 0.02 % solution for inhalation 0.5 mg INHALATION Q6H PRN 11/26/17 [History Confirmed 03/03/21] carvedilol 12.5 mg tablet 12.5 mg PO QPM tab 04/05/20 [History Confirmed 03/03/21] carvedilol 25 mg tablet 25 mg PO QAM tab 04/05/20 [History Confirmed 03/03/21] lisinopril 10 mg tablet 10 mg PO DAILY #30 tab 04/05/20 [Rx Confirmed 03/03/21] bimatoprost 0.01 % eye drops 1 drp OPHTHALMIC QPM ml 10/17/20 [History Confirmed 03/03/21] calcium citrate 250 mg PO BID 10/17/20 [History Confirmed 03/03/21] fluorometholone 0.1 % eye drops,suspension 1 drp OPHTHALMIC QWEEK ml 10/17/20 [History Confirmed 03/03/21] fluticasone propionate 50 mcg/actuation nasal spray,suspension 2 spray INTRANASAL DAILY PRN 10/17/20 [History Confirmed 03/03/21] magnesium oxide 400 mg (241.3 mg magnesium) tablet 400 mg PO BID tablet 10/17/20 [History Confirmed 03/03/21] multivitamin 1 tablet PO DAILY 10/17/20 [History Confirmed 03/03/21] duloxetine 20 mg capsule,delayed release 20 mg PO DAILY PRN cap 11/24/20 [History Confirmed 03/03/21] tamsulosin 0.4 mg capsule 0.4 mg PO DAILY PRN cap 11/24/20 [History Confirmed 03/03/21] metronidazole 500 mg tablet 500 mg PO TID #30 tab 03/01/21 [Rx Confirmed 03/03/21] warfarin 4 mg tablet 4 mg PO .COMPLEX #138 tab 03/02/21 [Rx Confirmed 03/03/21] [facility] Medical History (Updated 03/03/21 @ 12:[address] Aurelio Killian MD) Actinic keratosis Actinic keratosis of left cheek Alcohol abuse Anxiety and depression Back problem Bone fracture Cataracts, bilateral Chronic atrial fibrillation Chronic diastolic (congestive) heart failure Diverticulosis Essential (primary) hypertension Gastrointestinal problem Generalized anxiety disorder GERD (gastroesophageal reflux disease) Glaucoma Hearing problem Hyperlipidemia Hypertriglyceridemia Migraines Neoplasm of unspecified behavior of bone, soft tissue, and skin Nicotine dependence Panic disorder with agoraphobia PROSTATE PROBLEMS Severe chronic obstructive pulmonary disease Shortness of breath Sleep apnea TIA (transient ischemic attack) UTI (urinary tract infection) Vision problems Surgical History H/O cornea transplant H/O repair of left rotator cuff History of cardioversion History of cataract removal with insertion of prosthetic lens History of right inguinal hernia repair History of umbilical hernia repair S/P tendon repair toe nail removed Family History Mother Hypertension A-fib Anxiety History of blood transfusion Bowel disease Colon cancer Depression (emotion) Father COPD (chronic obstructive pulmonary disease) Asthma Depression (emotion) Respiratory disease Sister Breast cancer Anxiety Grandfather Alcoholism Social History Smoking Status: Current every day smoker alcohol intake: current alcohol intake frequency: 3 or more drinks per day Alcohol type: beer substance use type: does not use caffeine: Yes Type: coffee Number of servings: 2 additional social history: DOES NOT USE ASPIRIN DOES NOT USE IBUPROFEN HPI: NARESH HOLLIS, is a 80 M who presents to the office today for surgical consultation regarding abdominal pain. The patient is referred by Dr. Marcos Lam and a written copy my surgical consult recommendations will be returned to him. As of February 28, 2021 the patient a white blood cell count of 5.2 with a hemoglobin 15.2 hematocrit 45.2 platelet count 154,000. ESR was 29. BUN is 14 and creatinine 0.72. Lactic acid 0.6. AST 14. ALT 22. Alkaline phosphatase 57. C-reactive protein 22.7. CEA level 2. On February 23, [address] of the abdomen pelvis was obtained because of the persistent history of diarrhea and a previous history of colon polyps. CT suggest diffuse circumferential wall thickening of the right hemicolon and mild degree of thickening of the sigmoid colon suggestive of colitis. The patient has been consulted on by Dr. Skip Peguero for severe chronic obstructive pulmonary disease and chronic diastolic congestive heart failure and tobacco abuse and obstructive sleep apnea. He states that he has had diarrhea for perhaps a year. He states that he had about a 20 pound weight loss earlier but that is stabilized. He does not notice any bright red blood per rectum or melena. His activity level has significantly decreased. He is much more sedative. He is oxygen dependent with exertion. He notices that he has chronic bilateral lower extremity swelling the right worse than the left. He is definitely more sedentary. ROS General General: Yes fatigue; No weight change, appetite, colon cancer, breast cancer or weakness HEENT HEENT: Yes eye surgery; No difficulty swallowing, eye injury, swollen glands or hoarseness Endo Endocrine: No thyroid disease, diabetes mellitus, thyroid cancer, Hair loss, heat intolerance or cold intolerance Skin Skin: No rash or changing moles Breast Breast: No left breast lump, right breast lump, nipple discharge, breast pain, abnormal mammogram, abnormal US or breast enlargement Musc Musculoskeletal: Yes arthritis; No back problems, rheumatoid arthritis, gout or joint pain Cardio Cardiovascular: Yes heart disease, atrial fibrillation and high blood pressure; No murmur, pacemaker, heart attack, heart stent, palpitations, shortness of breat with exertion or chest pain Psych Psychiatric: Yes anxiety; No depression or hearing voices Resp Respiratory: Yes shortness of breath, Yes sleep apnea, Yes cough, Yes COPD, No asthma, Yes emphysema and No wheezing Gastro Gastrointestinal: Yes abdominal pain, No nausea or vomiting, Yes diarrhea, No constipation, No blood in stool, No acid reflux, Yes hemorrhoids, No ulcers, No gallbladder problem and No black,tarry stools Rahat Hematologic: Yes blood thinners, No blood disorders, No bleeding, No anemia and No blood clots Neuro Neurologic: No system reviewed and no additional complaints, except as docu mented, No as per HPI, No abnormal gait, No abnormal hearing, No abnormal movements, No abnormal speech, No behavioral changes, No burning sensations, No confusion, No convulsions, No disequilibrium, No dizziness, No localized weakness, No frequent falls, No headache(s), No lack of coordination, No loss of vision, No memory loss, Yes numbness, No other visual disturbances, No radicular pain, No restless legs, No sensory deficit, No syncope, Yes tingling, No tremor(s), No weakness and No other (History TIA) Exam Const General: cooperative and comfortable Other: The patient looks stated age or older. He moves slowly and uses a cane for assistance HENMT Head: normal to inspection Neck Other: Somewhat stiff, bilateral carotids are 2+, 2/6 bruit right carotid Chest Other: Markedly increased anterior posterior diameter. Resp Other: Wheezes noted bilaterally. Cardio Rate: regular rate Rhythm: regular rhythm GI Other: Soft, nontender, no hepatosplenomegaly, normal bowel sounds Musc Cervical Spine: normal cervical lordosis Neuro General: patient alert and patient awake Extrem Other: 3+ right lower extremity pitting edema. 2+ left lower extremity pitting edema. Psych Thought Content: normal COVID (Procedure Consent) Procedure Criteria Procedure Criteria: Yes Elective The surgeon/proceduralist and patient have discussed in detail the risk of exposure to and/or potential harm posed by the COVID-19 virus with having a surgery/procedure at this time versus the risk of delaying the surgery/procedure. It is not possible to know either the risk of delaying the surgery or procedure or chance of getting an infection with perfect accuracy, but a joint decision was made between the patient and the surgeon/proceduralist to proceed at this time with the scheduled surgery/procedure as indicated on the consent form. Assessment and Plan Assessment and Plan (1) Abdominal pain: Status: Acute Qualifiers: Abdominal location: generalized Qualified Code(s): R10.84 - Generalized abdominal pain (2) Diarrhea: Status: Acute Qualifiers: Diarrhea type: unspecified type Qualified Code(s): R19.7 - Diarrhea, unspecified (3) Abnormal CT of the abdomen: Status: Acute Plan - Dr. Aurelio Killian MD: 80-year-old gentleman. Previous history of weight loss. Change of bowel habits with intermittent diarrhea. No evidence for blood loss. Generalized nonspecific abdominal pain. Abnormal CT imaging with wall thickening of the ascending and sigmoid colon. I propose for him a colonoscopy with possible biopsy or polypectomy as indicated. We will have him hold his Coumadin 3 days preprocedure. Because of his medical comorbidities we would definitely need to perform this with monitored anesthesia care. He is aware that his chronic pulmonary disease places him at increased risk. Very careful inspection of the entire colon acute inspection of the ascending and sigmoid colon will be pursued. Biopsies will be obtained as indicated. He is aware of the technique, benefit, risk, alternatives. No guarantees of success are offered. I appreciate the opportunity of assisting with the surgical care. Copy: Dr. Mracos Lam. Aurelio Killian M.D., F.A.C.S. I have re-examined the patient. There are no clinical changes since date of exam. Aurelio Killian M.D., F.A.C.S.
[2021-03-08 06:15] LABS: International Normalized Ratio 1.3; Prothrombin Time (Protime)PT. 15.9 SECONDS (11.7-14.9)
[2021-03-08 06:25] LABS: INR Fingerstick 1.3; Prothrombin Time Fingerstick 14.9 SEC (11.9-14.4)
--- NOTE | 2021-03-08 06:30 | COLBX_PTH ---
PATIENT: NARESH HOLLIS LOC: EN U#:[id number] AGE/SX: 80/M ROOM: RE03/08/[address]: Dr. Aurelio Killian MD : 1940 BED: DIS: 03/08/2021 SPEC #: [id number] RECD: 03/08/21 08:46 STATUS: DEMETRIA TAPIA #: [id number] DAVIS: 03/08/21 06:[address]: Aurelio Killian DEPT: SURGICAL PATHOLOGY RECD BY: Olamide Lord ENTERED: 03/08/21 13:21 SP TYPE: COLON BX OTHR DR: Dr. Marcos Lam MD Tissues: A - COLON BIOPSY B - Transverse colon C - Transverse colon D - Transverse colon E - Transverse colon Procedures: Trichrome (control) Special Stain Group II Surgery Specimen Level IV HEADER OPERATION: Colonoscopy (MAC) PRE-OP DIAGNOSIS: Abdominal pain, diarrhea, abnormal CT of abdomen TISSUE SUBMITTED: A - Random colon biopsies, B - Biopsy and snare of proximal transverse polyp, C - Mid transverse polyp, D - Mid transverse polyp #2, E - Biopsy of distal transverse polyp MICROSCOPIC DIAGNOSIS A. 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 See comment. B. Proximal transverse colon polyp, biopsy: Fragments of tubular adenoma. C. Mid transverse colon polyp, biopsy: Cauterized fragment of colonic mucosa with focal hyperplastic changes. D. Mid transverse colon polyp #2, biopsy: Fragments of tubular adenoma. E. Distal transverse colon polyp, biopsy: Fragments of tubular adenoma. SJ:rg 03/09/2021 COMMENT A. Trichrome stain with matched control is used in the evaluation of the specimen and does not show any significant thickening of subepithelial collagen band. Case has been reviewed in consultation with Dr. Gabriel who concurs with the above diagnosis. IDC:AM MICROSCOPIC DESCRIPTION Slides are reviewed. GROSS DESCRIPTION A - Received in fixative is one container labeled with the patient's name and designated random colon biopsy. The specimen consists of multiple irregular fragments of light romero soft tissue that in aggregate measure 2 x 0.5 x 0.1 cm. The specimen is totally submitted in one cassette. B - Received in fixative is one container labeled with the patient's name and designated biopsy and snare proximal transverse polyp. The specimen consists of multiple irregular fragments of light romero soft tissue that in aggregate measure 1 x 0.3 x 0.1 cm. The specimen is totally submitted in one cassette. C - Received in fixative is one container labeled with the patient's name and designated mid transverse polyp. The specimen consists of multiple irregular fragments of light romero soft tissue that in aggregate measure 0.5 x 0.1 x 0.1 cm. The specimen is totally submitted in one cassette. D - Received in fixative is one container labeled with the patient's name and designated mid transverse polyp #2. The specimen consists of multiple irregular fragments of light romero soft tissue that in aggregate measure 1.2 x 0.2 x 0.1 cm. The specimen is totally submitted in one cassette. E - Received in fixative is one container labeled with the patient's name and designated biopsy of distal transverse polyp. The specimen consists of two irregular fragments of light romero soft tissue that in aggregate measure 0.5 x 0.2 x 0.1 cm. The specimen is totally submitted in one cassette. / SJ:rg 03/08/21 TC:1 CPT: 38384 x5, 38774
--- NOTE | 2021-03-08 07:15 | OP.COLON_ITS ---
Patient Name: Miguelangel Sanford Procedure Date: 03/08/2021 6:17 AM Date of : 1940 Age: 80 Procedure: Colonoscopy Indications: Abnormal CT of the GI tract Providers: Aurelio Killian MD Medicines: See the Anesthesia note for documentation of the administered medications Patient Profile: Last Colonoscopy: date unknown. Complications: No immediate complications. Procedure: Pre-Anesthesia Assessment: - Prior to the procedure, a History and Physical was performed, and patient medications and allergies were reviewed. The patient's tolerance of previous anesthesia was also reviewed. The risks and benefits of the procedure and the sedation options and risks were discussed with the patient. All questions were answered, and informed consent was obtained. Prior Anticoagulants: The patient has taken anticoagulant medication. ASA Grade Assessment: III - A patient with severe systemic disease. After reviewing the risks and benefits, the patient was deemed in satisfactory condition to undergo the procedure. After I obtained informed consent, the scope was passed under direct vision. Throughout the procedure, the patient's blood pressure, pulse, and oxygen saturations were monitored continuously. The colonoscope was introduced through the anus and advanced to the cecum, identified by appendiceal orifice and ileocecal valve. The colonoscopy was performed with moderate difficulty due to a redundant colon. The patient tolerated the procedure well. The quality of the bowel preparation was good. The ileocecal valve and the appendiceal orifice were photographed. Scope In: 6:30:00 AM Scope Withdrawal Time 0 hours 28 minutes 23 seconds Scope Out: 7:01:29 AM Total Procedure Duration Time 0 hours 31 minutes 29 seconds Findings: The digital rectal exam findings include non-thrombosed external hemorrhoids, non-thrombosed internal hemorrhoids, internal hemorrhoids that prolapse with straining, but spontaneously regress to the resting position (Grade II) and enlarged prostate. A 9 mm polyp was found in the proximal transverse colon. The polyp was sessile. The polyp was removed with a hot snare. Resection and retrieval were complete. A 5 mm polyp was found in the mid transverse colon. The polyp was sessile. The polyp was removed with a cold biopsy forceps. Resection and retrieval were complete. A 20 mm polyp was found in the mid transverse colon. The polyp was sessile. The polyp was removed with a saline injection-lift technique using a hot snare. Polyp resection was incomplete. To prevent bleeding post-intervention, one hemostatic clip was successfully placed. There was no bleeding at the end of the procedure. A 7 mm polyp was found in the distal transverse colon. The polyp was sessile. The polyp was removed with a cold biopsy forceps. Resection and retrieval were complete. Biopsies for histology were taken with a cold forceps from the entire colon for evaluation of microscopic colitis. Multiple diverticula were found in the sigmoid colon and descending colon. Impression: - Non-thrombosed external hemorrhoids, non-thrombosed internal hemorrhoids, internal hemorrhoids that prolapse with straining, but spontaneously regress to the resting position (Grade II) and enlarged prostate found on digital rectal exam. - One 9 mm polyp in the proximal transverse colon, removed with a hot snare. Resected and retrieved. - One 5 mm polyp in the mid transverse colon, removed with a cold biopsy forceps. Resected and retrieved. - One 20 mm polyp in the mid transverse colon, removed using injection-lift and a hot snare. Incomplete resection. Clip was placed. - One 7 mm polyp in the distal transverse colon, removed with a cold biopsy forceps. Resected and retrieved. Biopsied. Recommendation: - Repeat colonoscopy in 1 year for surveillance. - Telephone my office for pathology results in 1 week. No source for abdominal pain identified. No source of abnormal CT imaging suggesting wall thickening of the ascending and sigmoid colon. Random biopsies pending. Mid transverse colon 2 cm polyp lift and piecemeal resection. Marking clip hemostatic clip placed. Incomplete polyp resection due to location and positioning. - Continue present medications. Procedure Code(s): --- Professional --- 53015, Colonoscopy, flexible; with removal of tumor(s), polyp(s), or other lesion(s) by snare technique 00747, 59, Colonoscopy, flexible; with biopsy, single or multiple 68794, Colonoscopy, flexible; with directed submucosal injection(s), any substance Diagnosis Code(s): --- Professional --- D12.3, Benign neoplasm of transverse colon (hepatic flexure or splenic flexure) K64.1, Second degree hemorrhoids K64.4, Residual hemorrhoidal skin tags N40.0, Benign prostatic hyperplasia without lower urinary tract symptoms R93.3, Abnormal findings on diagnostic imaging of other parts of digestive tract CPT copyright 2017 [employer]. All rights reserved. The codes documented in this report are preliminary and upon government property inspector review may be revised to meet current compliance requirements. Aurelio Killian MD 03/08/2021 7:15:17 AM This report has been signed electronically. Number of Addenda: 0 Note Initiated On: 03/08/2021 6:17 AM
--- NOTE | 2021-03-08 07:16 | OP.CCLET_ITS ---
03/08/2021 Marcos Lam [address] [place] [address] Re : Colonoscopy procedure for Miguelangel Sanford Dear Dr. Lam This procedure was performed on Monday, March 08, 2021. My impressions and recommendations are as follows: Impressions : - Non-thrombosed external hemorrhoids, non-thrombosed internal hemorrhoids, internal hemorrhoids that prolapse with straining, but spontaneously regress to the resting position (Grade II) and enlarged prostate found on digital rectal exam. - One 9 mm polyp in the proximal transverse colon, removed with a hot snare. Resected and retrieved. - One 5 mm polyp in the mid transverse colon, removed with a cold biopsy forceps. Resected and retrieved. - One 20 mm polyp in the mid transverse colon, removed using injection-lift and a hot snare. Incomplete resection. Clip was placed. - One 7 mm polyp in the distal transverse colon, removed with a cold biopsy forceps. Resected and retrieved. Biopsied. Recommendations : - Repeat colonoscopy in 1 year for surveillance. - Telephone my office for pathology results in 1 week. No source for abdominal pain identified. No source of abnormal CT imaging suggesting wall thickening of the ascending and sigmoid colon. Random biopsies pending. Mid transverse colon 2 cm polyp lift and piecemeal resection. Marking clip hemostatic clip placed. Incomplete polyp resection due to location and positioning. - Continue present medications. My findings are described in the full procedure note, which is enclosed. If I can be of further assistance, please feel free to contact me at Doctor phone number(s): Work: . Sincerely, Aurelio Killian MD 03/08/2021 7:15:17 AM This report has been signed electronically.
== END 2021-03-08 08:08 | disposition home or self-care (01) ==
LOC: EN 05:11 → AC 05:13
PROVIDERS: Anesthesiology; PCP Family Medicine; Referring Provider Family Medicine; Visit Provider Surgery
PROC: 0DJD8ZZ Inspection of Lower Intestinal Tract, Via Natural or Artificial Opening Endoscopic (ICD-10-PCS; CPT 45378; principal; 2021-03-08 06:25)
DX: D12.3 Benign neoplasm of transverse colon (principal); K57.30 Diverticulosis of large intestine without perforation or abscess without bleeding; K64.1 Second degree hemorrhoids; K21.9 Gastro-esophageal reflux disease without esophagitis; F41.9 Anxiety disorder, unspecified; F32.9 Major depressive disorder, single episode, unspecified; E78.5 Hyperlipidemia, unspecified; I48.20 Chronic atrial fibrillation, unspecified; I11.0 Hypertensive heart disease with heart failure; I50.32 Chronic diastolic (congestive) heart failure; F17.200 Nicotine dependence, unspecified, uncomplicated; G47.33 Obstructive sleep apnea (adult) (pediatric); J44.9 Chronic obstructive pulmonary disease, unspecified; Z86.010 Personal history of colon polyps; Z86.73 Personal history of transient ischemic attack (TIA), and cerebral infarction without residual deficits; Z79.01 Long term (current) use of anticoagulants; Z79.51 Long term (current) use of inhaled steroids; Z79.899 Other long term (current) drug therapy
CPT/HCPCS: 45380; 36416; 85610; 88305; 88313; J7120; A4216; J2405

== ENCOUNTER → 2021-05-29 16:03 | Outpatient (CLI) | payer MEDICARE, OTHER, SELFPAY ==
[2021-05-29 18:36] LABS: International Normalized Ratio 2.9; Prothrombin Time (Protime)PT. 29.9 SECONDS (11.7-14.9)
== END ==
PROVIDERS: Specialist; PCP Family Medicine; Referring Provider Urology; Visit Provider Urology
DX: I48.20 Chronic atrial fibrillation, unspecified (principal); R97.20 Elevated prostate specific antigen [PSA]; Z79.01 Long term (current) use of anticoagulants
CPT/HCPCS: 36415; 84153; 85610

== ENCOUNTER 2021-07-21 10:37 | Outpatient (CLI) | payer MEDICARE, OTHER, SELFPAY ==
--- NOTE | 2021-07-21 10:42 | EKG12_ITS ---
Test Reason : OR Blood Pressure : / mmHG Vent. Rate : 069 BPM Atrial Rate : 077 BPM P-R Int : 000 ms QRS Dur : 094 ms QT Int : 378 ms P-R-T Axes : 000 -64 048 degrees QTc Int : 405 ms Atrial fibrillation Left anterior fascicular block Septal infarct , age undetermined Abnormal ECG Confirmed by DINESH JUAN, LATHA ([id number]), editorial director CARLENE DENNIS ([id number]) on 07/24/2021 11:33:35 AM Referred By: Lorne Martinez Confirmed By:LATHA MONTIEL MD
== END 2021-07-21 23:59 | disposition short-term general hospital (02) ==
LOC: PSN 10:39
PROVIDERS: PCP Family Medicine; Referring Provider Urology; Visit Provider Urology
DX: Z01.810 Encounter for preprocedural cardiovascular examination (principal)
CPT/HCPCS: 93005

== ENCOUNTER 2021-08-08 11:47 | Outpatient (CLI) | payer MEDICARE, OTHER, SELFPAY ==
[2021-08-08 13:29] LABS: Prothrombin Time (Protime)PT. 21.9 SECONDS (11.7-14.9)
== END 2021-08-08 23:59 | disposition short-term general hospital (02) ==
LOC: LAB 11:50
PROVIDERS: PCP Family Medicine; Visit Provider Surgery
DX: Z79.01 Long term (current) use of anticoagulants (principal)
CPT/HCPCS: 36415; 85610

== ENCOUNTER 2021-08-30 14:20 | Outpatient (RCR) | payer MEDICARE, OTHER, SELFPAY ==
[2020-11-24 15:34] VITALS: BMI 27.0
[2021-08-15 13:43] LABS: International Normalized Ratio 1.9; Prothrombin Time (Protime)PT. 20.6 SECONDS (11.7-14.9)
[2021-08-30 14:31] LABS: INR Fingerstick 2.4; Prothrombin Time Fingerstick 27.4 SEC (11.9-14.4)
== END 2021-08-30 23:59 | disposition home or self-care (01) ==
LOC: MTLAB 14:20
PROVIDERS: PCP Family Medicine; Referring Provider Internal Medicine Cardiovascular Disease; Visit Provider Internal Medicine Cardiovascular Disease
DX: I48.20 Chronic atrial fibrillation, unspecified (principal); Z79.01 Long term (current) use of anticoagulants
CPT/HCPCS: 36415; 36416; 85610

== ENCOUNTER 2021-11-24 15:29 | Outpatient (RCR) | payer MEDICARE, OTHER, SELFPAY ==
[2021-09-05 10:23] VITALS: BMI 27.0
[2021-11-24 16:01] LABS: INR Fingerstick 2.9
== END 2021-11-24 18:00 | disposition home or self-care (01) ==
LOC: MTLAB 15:29
PROVIDERS: PCP Family Medicine; Referring Provider Internal Medicine Cardiovascular Disease; Visit Provider Internal Medicine Cardiovascular Disease
DX: I48.20 Chronic atrial fibrillation, unspecified (principal); Z79.01 Long term (current) use of anticoagulants
CPT/HCPCS: 36416; 85610

== ENCOUNTER → 2022-03-06 | Outpatient (CLI) | payer MEDICARE, OTHER, SELFPAY ==
[2022-03-06 17:47] LABS: Absolute Lymphocyte Count 1.16 X10^3/uL (0.83-4.51); Basophil# 0.07 X10^3/uL; Eosinophil# 1.12 X10^3/uL; Eosinophils% 16.7 % (0-5); Hematocrit 49.1 % (40-54); Hemoglobin 16.3 g/dL (13.0-16.5); Lymphocyte # 1.16 X10^3/ul (0.83-4.51); Lymphocyte % 17.3 % (19-41); Mean Corp Hgb Conc 33.2 g/dL (32-36); Mean Corpuscular Hgb 32.5 pg (27.0-32.0); Mean Corpuscular Volume 97.8 fL (80-94); Mean Platelet Vol. 10.5 fl (6.2-12.0); Monocyte# 0.38 X10^3/uL; Monocyte% 5.7 % (0-10); NRBC Flagged by Analyzer 0 % (0-5); Neutrophil # 3.97 X10^3/uL (2.7-7.7); Platelet Count 224 K/mm3 (150-450); RBC Distribution Width CV 14.3 % (11.6-14.6); RBC Distribution Width SD 51.3 fl (35.1-43.9); Red Blood Count 5.02 M/mm3 (4.6-6.2); White Blood Count 6.7 K/mm3 (4.4-11.0)
[2022-03-06 18:23] LABS: Vitamin B12 488 pg/mL (211-911)
[2022-03-06 18:38] LABS: ALB/GLOB Ratio 0.9 RATIO (0.9-2.4); AST(SGOT) 15 U/L (15-37); Alanine Aminotransfer ALT/SGPT 20 U/L (16-61); Albumin, Serum 3.5 g/dL (3.2-5.0); Alkaline Phosphatase 69 U/L (45-117); Anion Gap 6 (5-15); BUN 16 mg/dL (7-18); BUN/Creat Ratio 21.3 RATIO (10-20); Chloride 98 mmol/L (98-107); Creatinine, Serum 0.75 mg/dL (0.70-1.30); EST Glomerular Filtration Rate 106 mL/min (>60); Est Glom Filt Rate - Afr Amer 128 mL/min (>60); Globulin 4.1 g/dL (2.2-4.2); Glucose 90 mg/dL (74-106); Potassium 4.4 mmol/L (3.5-5.1); Protein, Total 7.6 g/dL (6.4-8.2); Sodium Level 135 mmol/L (136-145); Thyroid Stim Hormone (TSH) 0.79 uIU/mL (0.358-3.74)
[2022-03-11 14:20] LABS: PSA, Free 7.59 ng/mL; PSA, Free % 6.5 % (.)
== END | disposition home or self-care (01) ==
LOC: MFPLAB 17:00
PROVIDERS: PCP Family Medicine; Visit Provider Family Medicine
DX: R41.89 Other symptoms and signs involving cognitive functions and awareness (principal); I48.91 Unspecified atrial fibrillation; R97.20 Elevated prostate specific antigen [PSA]; Z12.5 Encounter for screening for malignant neoplasm of prostate
CPT/HCPCS: 36415; 80053; 82607; 82746; 84153; 84154; 84443; 85025

== ENCOUNTER → 2022-03-23 | Outpatient (CLI) | payer MEDICARE, OTHER, SELFPAY ==
--- NOTE | 2022-03-23 09:46 | NM_ITS ---
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 WHOLE BODY 99m Tc MDP RADIONUCLIDE BONE SCINTIGRAPHY COMPARISON: None available FINDINGS: Following the intravenous administration of 25.0 mCi of 99m Tc MDP, whole body bone images reveal: 1. Increased radiotracer distribution is defined in the acromioclavicular, sternoclavicular compartments of both shoulders, glenohumeral compartment of the left shoulder, the visualized left elbow, the bilateral knees and left ankle articulation. 2. The remaining skeletal structures are scintigraphically unremarkable with normal-appearing renal images and urinary bladder activity identified. NM/Bone Scan Whole Body IMPRESSION: 1. The increase in tracer concentration identified in the bilateral shoulders, the visualized left elbow, the right and left knees and left ankle are commensurate with degenerative arthrosis. 2. There is no definitive scintigraphic evidence of diffuse axial skeletal metastatic disease. Electronically Signed: Alex Cruz, at 9:50 EDT ,
== END | disposition home or self-care (01) ==
PROVIDERS: PCP Family Medicine; Referring Provider Family Medicine; Visit Provider Family Medicine
DX: R97.20 Elevated prostate specific antigen [PSA] (principal)
CPT/HCPCS: 78306; A9503

== ENCOUNTER 2022-06-05 14:50 | Outpatient (RCR) | payer MEDICARE, OTHER, SELFPAY ==
[2021-12-05 21:51] VITALS: BMI 27.0
[2022-05-08 15:51] LABS: INR Fingerstick 1.9; Prothrombin Time Fingerstick 22.6 SEC (11.7-14.9)
[2022-06-05 18:22] LABS: International Normalized Ratio 3.2; Prothrombin Time (Protime)PT. 32.5 SECONDS (11.7-14.9)
== END 2022-06-06 18:00 | disposition home or self-care (01) ==
LOC: MTLAB 14:50
PROVIDERS: Urology; PCP Family Medicine; Referring Provider Internal Medicine Cardiovascular Disease; Visit Provider Internal Medicine Cardiovascular Disease
DX: R97.20 Elevated prostate specific antigen [PSA] (principal); I48.20 Chronic atrial fibrillation, unspecified; Z79.01 Long term (current) use of anticoagulants; Z12.5 Encounter for screening for malignant neoplasm of prostate
CPT/HCPCS: 36415; 36416; 84153; 85610; G0103

== ENCOUNTER → 2022-06-19 | Outpatient (CLI) | payer MEDICARE, OTHER, SELFPAY ==
--- NOTE | 2022-06-19 17:14 | RAD_ITS ---
EXAM: XR CHEST, 2 VIEWS CLINICAL INDICATION: CHEST PAIN TECHNIQUE: Frontal and lateral views of the chest. This report was created using [employer] report generation technology. COMPARISON: 10/17/2020 FINDINGS: LUNGS AND PLEURAL SPACES: Right basilar atelectasis. No pneumothorax. No effusion. HEART: Unremarkable. Cardiac silhouette not enlarged. MEDIASTINUM: Central airways and mediastinal contour are unremarkable. BONES/JOINTS: Unremarkable. SOFT TISSUES: Unremarkable. UPPER ABDOMEN: Stable normal variant, with the colon positioned between the liver and the right diaphragm. Chronically elevated right diaphragm. RAD/Chest PA and Lateral IMPRESSION: No acute findings in the chest. Electronically Signed: Daniele Davis MD at 0:48 EST ,
== END | disposition home or self-care (01) ==
LOC: MTRAD 17:13
PROVIDERS: PCP Family Medicine; Referring Provider Family Medicine; Visit Provider Family Medicine
DX: R07.81 Pleurodynia (principal)
CPT/HCPCS: 71046

== ENCOUNTER 2022-07-04 15:07 | Outpatient (RCR) | payer MEDICARE, OTHER, SELFPAY ==
[2022-06-07 02:28] VITALS: BMI 27.0
[2022-07-04 15:16] LABS: INR Fingerstick 3.3; Prothrombin Time Fingerstick 36.8 SEC (11.7-14.9)
== END 2022-07-04 18:00 | disposition home or self-care (01) ==
LOC: MTLAB 15:07
PROVIDERS: PCP Family Medicine; Referring Provider Internal Medicine Cardiovascular Disease; Visit Provider Internal Medicine Cardiovascular Disease
DX: I48.20 Chronic atrial fibrillation, unspecified; Z79.01 Long term (current) use of anticoagulants
CPT/HCPCS: 36416; 85610

== ENCOUNTER → 2022-08-23 | Outpatient (CLI) | payer MEDICARE, OTHER, SELFPAY ==
[2022-08-23 18:04] LABS: International Normalized Ratio 3.6; Prothrombin Time (Protime)PT. 35.8 SECONDS (11.7-14.9)
== END | disposition home or self-care (01) ==
LOC: MFPLAB 14:55
PROVIDERS: PCP Family Medicine; Visit Provider Internal Medicine Cardiovascular Disease
DX: I48.20 Chronic atrial fibrillation, unspecified (principal); Z79.01 Long term (current) use of anticoagulants
CPT/HCPCS: 36415; 85610

== ENCOUNTER 2022-08-31 16:14 | Outpatient (RCR) | payer MEDICARE, OTHER, SELFPAY ==
[2022-07-08 06:30] VITALS: BMI 27.0
[2022-08-31 16:25] LABS: Prothrombin Time Fingerstick 34.2 SEC (11.7-14.9)
== END 2022-08-31 18:00 | disposition home or self-care (01) ==
LOC: MTLAB 16:14
PROVIDERS: PCP Family Medicine; Referring Provider Internal Medicine Cardiovascular Disease; Visit Provider Internal Medicine Cardiovascular Disease
DX: I48.20 Chronic atrial fibrillation, unspecified (principal); Z79.01 Long term (current) use of anticoagulants
CPT/HCPCS: 36416; 85610

== ENCOUNTER → 2022-09-13 | Outpatient (CLI) | payer MEDICARE, OTHER, SELFPAY | END | disposition home or self-care (01) | LOC: MTLAB 16:42 | PROVIDERS: PCP Family Medicine; Referring Provider Urology; Visit Provider Urology | DX: R97.20 Elevated prostate specific antigen [PSA] (principal) | CPT/HCPCS: 36415; 84153 ==

== ENCOUNTER 2022-09-24 16:43 | Outpatient (RCR) | payer MEDICARE, OTHER, SELFPAY ==
[2022-09-04 23:19] VITALS: BMI 27.0
[2022-09-18 15:01] LABS: INR Fingerstick 1.6; Prothrombin Time Fingerstick 19.2 SEC (11.7-14.9)
[2022-09-24 16:56] LABS: INR Fingerstick 1.6; Prothrombin Time Fingerstick 19.4 SEC (11.7-14.9)
== END 2022-10-05 20:57 | disposition home or self-care (01) ==
LOC: MTLAB 16:43
PROVIDERS: PCP Family Medicine; Referring Provider Internal Medicine Cardiovascular Disease; Visit Provider Internal Medicine Cardiovascular Disease
DX: I48.20 Chronic atrial fibrillation, unspecified (principal); Z79.01 Long term (current) use of anticoagulants
CPT/HCPCS: 36416; 85610

== ENCOUNTER 2022-10-10 17:02 | Emergency (ER) | payer MEDICARE, OTHER, SELFPAY ==
[2022-10-10 17:03] VITALS: BP 165/90; PULSE 84; RESP 18; TEMP 35.5; O2SAT 95
[2022-10-10 18:02] VITALS: O2SAT 97
[2022-10-10 20:00] VITALS: BP 145/87; PULSE 75; RESP 16; O2SAT 97
--- NOTE | 2022-10-10 20:49 | RAD_ITS ---
STUDY: X-RAY - UNILATERAL RIBS ( RIGHT ) WITH CHEST REASON FOR EXAM: Male, 82 years old. pain, trauma TECHNIQUE - RIBS: 5 view(s) of the ribs. TECHNIQUE - CHEST: Single frontal view of the chest. COMPARISON: June 19, 2022 FINDINGS - RIBS: Normal visualized ribs without a demonstrated fracture. FINDINGS - CHEST: Elevated right hemidiaphragm. The lungs are clear and expanded. There is no demonstrated pleural abnormality. Normal size heart. Normal mediastinum and evelin. Normal visualized pulmonary arteries. Normal visualized aortic arch and descending thoracic aorta. Normal visualized thoracic spine. Normal visualized ribs, clavicles, and shoulders. There is no demonstrated abnormality of the visualized soft tissue structures of the upper abdomen. RAD/Ribs Uni Min 3V w/PA Chest IMPRESSION: RIBS: Normal x-ray examination of the ribs. CHEST: Normal x-ray examination of the chest. Electronically Signed: Louie Jorgensen MD at 22:12 EDT ,
--- NOTE | 2022-10-10 20:50 | CT_ITS ---
EXAM: CT HEAD WITHOUT INTRAVENOUS CONTRAST CLINICAL INDICATION: trauma TECHNIQUE: Multiple axial images were obtained of the head without intravenous contrast. CTDIvol = ( 44.99 ) mGy, DLP = ( 829.85 ) mGycm This CT exam was performed using one or more of the following dose reduction techniques: automated exposure control, adjustment of the mA and/or kV according to patient size, and/or use of iterative reconstruction technique. This report was created using Sm[employer] Bucket report generation technology. COMPARISON: None. FINDINGS: BRAIN AND EXTRA-AXIAL SPACES: Periventricular small vessel ischemic change. No midline shift or hydrocephalus. Diffuse parenchymal atrophy. Posterior fossa structures are unremarkable. Basal cisterns are patent. No acute intracranial hemorrhage, mass effect or edema. No evidence of acute cortical stroke. BONES/JOINTS: Unremarkable. No discrete lytic or blastic abnormalities. VASCULATURE: Atherosclerotic calcifications of the carotid siphons and vertebrobasilar arteries. SINUSES: Scattered paranasal sinus mucosal thickening. Mastoid air cells are clear. MASTOID AIR CELLS: See above. ORBITS: Visualized globes, extraocular muscles, optic nerves and retrobulbar fat appear unremarkable. CT/Brain/Head without Contrast IMPRESSION: 1. No evidence of acute intracranial pathology. 2. Diffuse involutional changes and chronic ischemic small vessel white matter disease. AIDOC was utilized to assist in identifying pertinent positive findings. Electronically Signed: Jose Graff MD at 22:03 EDT ,
--- NOTE | 2022-10-10 20:50 | RAD_ITS ---
EXAM: XR RIGHT HIP WITH PELVIS WHEN PERFORMED, 1 VIEW CLINICAL INDICATION: Injury/Pain TECHNIQUE: Frontal view of the right hip with pelvis when performed. This report was created using [employer] report Seedfuse technology. COMPARISON: None. FINDINGS: BONES/JOINTS: Heterogeneous appearance of the midshaft of the right femur. Recommend correlation with any history of trauma. This could also represent an infiltrating tumor. Consider follow-up with dedicated femur imaging if this is a new finding. No acute or healing fracture or malalignment. Moderate osteoarthrosis of the right hip, mild involving the left hip. No other unusual lytic or sclerotic lesions of bone. Sacroiliac joint is unremarkable. No widening of the pubic symphysis. SOFT TISSUES: Unremarkable. No soft tissue swelling or gas. VASCULATURE: Atherosclerotic calcifications in the pelvis. Vascular calcifications in the pelvis. RAD/HIP, UNI W/ Pelvis 2-3 Views IMPRESSION: No acute or healing fracture or malalignment. Electronically Signed: Jose Graff MD at 22:38 EDT ,
--- NOTE | 2022-10-10 21:31 | RAD_ITS ---
EXAM: XR RIGHT ELBOW COMPLETE, 3 OR MORE VIEWS CLINICAL INDICATION: Injury/Pain TECHNIQUE: Frontal, lateral and oblique views of the right elbow. This report was created using [employer] report generation technology. COMPARISON: None. FINDINGS: BONES/JOINTS: Large olecranon enthesophyte. No significant joint effusion. No acute or healing fracture or malalignment. No unusual lytic or sclerotic lesions of bone. Question enthesophyte versus versus an old injury at the peripheral aspect of the ulnar coronoid process. SOFT TISSUES: Unremarkable. No soft tissue swelling or gas. No radiopaque foreign body. RAD/Elbow min 3 Views IMPRESSION: No acute or healing fracture or malalignment. Large olecranon enthesophyte. Electronically Signed: Jose Graff MD at 22:27 EDT ,
[2022-10-10 23:12] LABS: International Normalized Ratio 1.7
[2022-10-10 23:42] VITALS: PULSE 88; RESP 16; O2SAT 98; BMI 23.2
--- NOTE | 2022-10-10 23:42 | EX.ED.GENINJ ---
HPI History of Present Illness Chief Complaint: Fall Informant: patient Narrative Narrative: Patient is an 82-year-old male with history of atrial fibrillation on chronic Coumadin therapy (unsure when his last INR was) as well as heart failure, hypertension and hyperlipidemia presenting after a fall. Patient states he was walking when he just tripped and fell forward. He tried to speed up to keep his balance but was unable to and fell on his right side. He thinks he might of hit his head. He has pain of his right ribs, right hip, right knee and right elbow. No other complaints at this time. Denies any associated loss of consciousness. Denies any bleeding or wounds from the fall. [facility] Medical History (Reviewed 07/19/22 @ 14:31 by Saida Milligan MANAGER TALENT MANAGEMENT, MANAGER TALENT MANAGEMENT-C) Actinic keratosis Actinic keratosis of left cheek Alcohol abuse Alcohol use Ambulates with cane Anxiety Anxiety and depression Arthritis Back problem Bone fracture Cardiology follow-up encounter Cataracts, bilateral Chronic atrial fibrillation Chronic diastolic (congestive) heart failure CPAP (continuous positive airway pressure) dependence Diverticulosis Essential (primary) hypertension Gastric reflux Gastrointestinal problem Generalized anxiety disorder GERD (gastroesophageal reflux disease) Glaucoma Hearing problem History of atrial fibrillation History of diverticulitis History of echocardiogram History of edema History of pain when walking History of stress test Hyperlipidemia Hypertriglyceridemia Injury of head and neck Loss of hearing Migraines Neoplasm of unspecified behavior of bone, soft tissue, and skin Nicotine dependence On home oxygen therapy Panic disorder with agoraphobia Prostate disease PROSTATE PROBLEMS Severe chronic obstructive pulmonary disease Shortness of breath Shortness of breath on exertion Skin tear Sleep apnea Smoker TIA (transient ischemic attack) TIA (transient ischemic attack) UTI (urinary tract infection) Vision problems Wears dentures Wears glasses Home Medications albuterol sulfate 90 mcg/actuation aerosol inhaler 1 puff IH Q8 PRN SOB 04/25/15 [History Last Taken 08/22/16] carvedilol 12.5 mg tablet 12.5 mg PO QPM 04/05/20 [History Last Taken Unknown] carvedilol 25 mg tablet (Coreg) 25 mg PO QAM 04/05/20 [History Last Taken Unknown] bimatoprost 0.01 % eye drops 1 drp ophthalmic (eye) QPM 10/17/20 [History Last Taken Unknown] calcium citrate 250 mg PO BID 10/17/20 [History Last Taken Unknown] fluorometholone 0.1 % eye drops,suspension 1 drp ophthalmic (eye) QWEEK 10/17/20 [History Last Taken Unknown] fluticasone propionate 50 mcg/actuation nasal spray,suspension (Children's Flonase Allergy Relief) 2 spray intranasal DAILY PRN Congestion 10/17/20 [History Last Taken Unknown] magnesium oxide 400 mg (241.3 mg magnesium) tablet 400 mg PO BID dificiency 10/17/20 [History Last Taken Unknown] multivitamin 1 tablet PO DAILY 10/17/20 [History Last Taken Unknown] duloxetine 20 mg capsule,delayed release 20 mg PO DAILY PRN Anxiety 11/24/20 [History Last Taken Unknown] albuterol sulfate 2.5 mg/3 mL (0.083 %) solution for nebulization 2.5 mg (3 mL) inhalation .qid PRN Wheezing #180 mL 04/19/22 [Rx Last Taken Unknown] warfarin 4 mg tablet 4 mg PO SUWESA previous dose incorrect #36 tabs 05/25/22 [Rx Last Taken Unknown] warfarin 6 mg tablet 6 mg PO MOTUTHFR #48 tabs 05/25/22 [Rx Last Taken Unknown] ipratropium bromide 0.02 % solution for inhalation 0.5 mg (2.5 mL) inhalation Q6H PRN Wheezing #150 mL 06/08/22 [Rx Last Taken Unknown] lisinopril 10 mg tablet 10 mg PO DAILY #30 tabs 06/13/22 [Rx Last Taken Unknown] amoxicillin 875 mg-potassium clavulanate 125 mg tablet 1 tab PO BID #20 tabs 07/19/22 [Rx Last Taken Unknown] fluticasone propionate 250 mcg/actuation blister powder for inhalation (Flovent Diskus) 1 inh inhalation BID #60 ea 07/19/22 [Rx Last Taken Unknown] prednisone 10 mg tablet 10 mg PO QDAY #30 tabs 07/19/22 [Rx Last Taken Unknown] Allergy/AdvReac Type Severity Reaction Status Date / Time amlodipine [From [place]] AdvReac elevated Verified 10/10/22 17:03 bilirubin disopyramide phosphate AdvReac Other Verified 10/10/22 17:03 [From [place]] metoprolol AdvReac SOB Verified 10/10/22 17:03 Family History (Reviewed 07/19/22 @ 14:31 by Saida Milligan MANAGER TALENT MANAGEMENT, MANAGER TALENT MANAGEMENT-C) Mother Hypertension A-fib Anxiety History of blood transfusion Bowel disease Colon cancer Depression (emotion) Father COPD (chronic obstructive pulmonary disease) Asthma Depression (emotion) Respiratory disease Sister Breast cancer Anxiety Grandfather Alcoholism Surgical History (Reviewed 07/19/22 @ 14:31 by Saida Milligan MANAGER TALENT MANAGEMENT, MANAGER TALENT MANAGEMENT-C) H/O cornea transplant H/O repair of left rotator cuff History of cardioversion History of cataract removal with insertion of prosthetic lens History of right inguinal hernia repair History of umbilical hernia repair Hx of colonoscopy S/P tendon repair Social History Smoking Status: Current every day smoker tobacco type: cigarettes alcohol intake: current alcohol intake frequency: 3 or more drinks per day Alcohol type: beer substance use type: does not use caffeine: Yes Type: coffee Number of servings: 2 additional social history: DOES NOT USE ASPIRIN DOES NOT USE IBUPROFEN ROS ROS ED Constitutional Constitutional ED: Denies chills or fever(s) Eyes Eyes: Denies change in vision ENT ENT ED: Denies rhinorrhea Cardiovascular Cardiovascular: Denies chest pain or palpitations Respiratory/Chest Respiratory/Chest: Denies cough or dyspnea Gastrointestinal Gastrointestinal: Denies abdominal pain or nausea Genitourinary Genitourinary ED: Denies dysuria Musculoskeletal Musculoskeletal: Reports arthralgias and myalgias; Denies back pain or neck pain Integumentary Denies Abrasions or rash Neurologic Neurologic: Denies headache(s) or weakness Psychiatric Psychiatric: Denies anxiety Hematologic/Lymphatic Hematologic/Lymphatic: Reports easy bleeding and easy bruising EXAM Physical Exam Const Vital Signs: 10/10/22 17:03 10/10/22 18:02 10/10/22 19:00 Temperature 96 F L Temperature Source Temporal Pulse Rate 84 Respiratory Rate 18 Respiratory Effort Normal Non-Labored Respiratory Depth Normal Respiratory Pattern Normal Blood Pressure 165/90 H Blood Pressure Mean 115 Pulse Ox 95 97 Oxygen Delivery Method Room Air Nasal Cannula Nasal Cannula Oxygen Flow Rate (L/min) 2 98 10/10/22 20:00 10/10/22 23:42 Temperature Temperature Source Pulse Rate 75 88 Respiratory Rate 16 16 Respiratory Effort Respiratory Depth Respiratory Pattern Blood Pressure 145/87 H Blood Pressure Mean 106 Pulse Ox 97 98 Oxygen Delivery Method Nasal Cannula Oxygen Flow Rate (L/min) 2 Positive well nourished and well developed General Appearance ED: well developed and NAD HEENT Reports TM's clear HEENT Narrative: No hemotympanum, no signs of head trauma or facial trauma atraumatic Nose: Negative for septum abnormal Tympanic Membrane ED: Yes TM's clear Eyes PERRL and EOMs intact bilaterally Neck full ROM Chest Wall inspection of chest normal Chest Narrative: No chest wall crepitus. Mild tenderness to palpation of the right inferior ribs near the anterior axillary line. No associated ecchymosis of the area. No flail chest segment. Resp normal respiratory effort Resp Narrative: Coarse breath sounds throughout. No wheezing at this time. Cardio no murmurs Rate: regular rate Rhythm: abnormal rhythm irregularly irregular GI normal to inspection, nondistended, normoactive bowel sounds and non-tender Back/Spine normal to inspection and no thoracic nor lumbar tenderness Extremity full ROM Extremity Narrative: No obvious deformities appreciated. Pelvis is stable. Normal range of motion of the upper extremities and lower extremities. No pain with logroll. Patient does have mild tenderness palpation of the left greater trochanter and no pinpoint bony tenderness of the right knee with normal range of motion. Normal exam on stressing. Patient does have mild tenderness palpation over the right ulnar head but no effusion appreciated. No other bony abnormalities appreciated. Neuro oriented x3, moves all extremities, no focal motor deficits and no sensory deficits noted Chucho Coma Scale: document GCS findings Spontaneous Obeys Commands Oriented 15 Sensorium / Orientation: alert Psych mental status grossly normal and thought process normal Skin Skin Narrative: Superficial wound to the right palm over the hypothenar eminence consistent with a friction injury. No actual break in the skin or bleeding appreciated. No areas of ecchymosis appreciated at this time. MDM MDM MDM Narrative Medical decision making narrative: Patient evaluated for injuries after mechanical fall. His pain seems to be centered upon the right side and he thinks he might of hit his head but not severely. He is chronically anticoagulated I will obtain a head CT in addition to x-rays to look for any type of bony deformity. X-ray of the right elbow, right rib series and right hip/pelvis obtained. No acute bony abnormality appreciated by myself or radiology. Due to the brain does not show any acute intracranial process. Patient's INR is slightly subtherapeutic at 1.7. It appears that patient is due to take a 6 mg tablet of Coumadin tonight and he is counseled to take 8 mg tablet instead (to 4 mg which she has). He is instructed to call his primary care doctor tomorrow for further INR management and recommendations. Patient and are agreeable this plan of care. He does not have any abrasions and I do not think requires a tetanus. He is back to his baseline it sounds like this was mechanical fall so I do not think any infectious or metabolic work-up is indicated looking for the cause of his fall. He currently has a normal neurologic exam. Patient discharged home in stable condition. Patient is offered Tylenol emergency room but declined because he does not like to take any kind of pain medicine. He is counseled on how to use incentive spirometer for his rib contusion and is also counseled on using [id number] Salonpas/Lidoderm patches or ointments to help with any muscle skeletal pain he might have. Lab Data Labs: Laboratory Results - last 24 hr 10/10/22 10/10/22 10/10/22 21:50 22:15 22:55 PT Cancelled Cancelled 20.0 H INR Cancelled Cancelled 1.7 Radiography Diagnostic Testing: Clinical Impression(s) from Imaging Studies Ribs w/Chest X-Ray 10/10/22 20:49 IMPRESSION: RIBS: Normal x-ray examination of the ribs. CHEST: Normal x-ray examination of the chest. Electronically Signed: Louie Jorgensen MD at 22:12 EDT Reading Location ID and State: [facility] / [place] , Service support , Brain CT 10/10/22 20:50 IMPRESSION: 1. No evidence of acute intracranial pathology. 2. Diffuse involutional changes and chronic ischemic small vessel white matter disease. AIDOC was utilized to assist in identifying pertinent positive findings. Electronically Signed: Jose Graff MD at 22:03 EDT , Hip/Pelvis X-Ray 10/10/22 20:50 IMPRESSION: No acute or healing fracture or malalignment. Electronically Signed: Jose Graff MD at 22:38 EDT , Elbow X-Ray 10/10/22 21:31 IMPRESSION: No acute or healing fracture or malalignment. Large olecranon enthesophyte. Electronically Signed: Jose Graff MD at 22:27 EDT , Discharge Plan Triage Chief Complaint: Fall ED Provider: Kathy Wiggins Dx/Rx/DC Orders Clinical Impression: Contusion of rib on right side, Contusion of right elbow, Contusion of knee, right, Contusion of hip, right, Subtherapeutic anticoagulation Instructions: ED Fall Prevention, ED Rib Contusion or Minor Fracture Prescriptions: No Action carvedilol [Coreg] 25 mg tablet 25 mg PO QAM carvedilol 12.5 mg tablet 12.5 mg PO QPM fluticasone propionate [Children's Flonase Allergy Rlf] 50 mcg/actuation spray,suspension 2 spray INTRANASAL DAILY PRN (Reason: Congestion) Rx Instructions: administer into each nostril multivitamin Tablet 1 tablet PO DAILY calcium citrate 250 mg calcium tablet 250 mg PO BID fluorometholone 0.1 % drops,suspension 1 drp OPHTHALMIC QWEEK bimatoprost 0.01 % drops 1 drp OPHTHALMIC QPM Label Comments: INSTILL 1 DROP INTO EACH EYE AT BEDTIME duloxetine 20 mg capsule,delayed release(DR/EC) 20 mg PO DAILY PRN (Reason: Anxiety) Label Comments: TAKE 1 CAPSULE BY MOUTH ONCE DAILY lisinopril 10 mg tablet 10 mg PO DAILY Qty: 30 8RF Flovent Diskus 250 mcg/actuation blister with device 1 inh INHALATION BID Qty: 60 6RF amoxicillin-pot clavulanate 875-125 mg tablet 1 tab PO BID Qty: 20 0RF prednisone 10 mg tablet 10 mg PO QDAY Qty: 30 0RF Rx Instructions: take 4 tabs for three days, then 3 tabs for three days, then 2 tabs for three days, then 1 tab for 3 days albuterol sulfate 6.7 GM HFA aerosol inhaler 1 puff IH Q8 PRN (Reason: SOB) Label Comments: shortness of breath magnesium oxide 400 mg (241.3 mg magnesium) tablet 400 mg PO BID Label Comments: supplement albuterol sulfate 2.5 mg /3 mL (0.083 %) solution for nebulization 2.5 mg INHALATION .qid PRN (Reason: Wheezing) Qty: 180 6RF warfarin 4 mg tablet 4 mg PO SU Qty: 36 3RF Protocol: Dose Management Condition: Saturday Dose/Route: 4 mg Instruction: 1 x 4 mg tablet Condition: Saturday Dose/Route: 6 mg Instruction: 1 x 6 mg tablet Condition: Saturday Dose/Route: 6 mg Instruction: 1 x 6 mg tablet Condition: Saturday Dose/Route: 6 mg Instruction: 1 x 6 mg tablet Condition: Dose/Route: 6 mg Instruction: 1 x 6 mg tablet Condition: Saturday Dose/Route: 4 mg Instruction: 1 x 4 mg tablet Condition: Saturday Dose/Route: 4 mg Instruction: 1 x 4 mg tablet Protocol Text: Adjustment Start Date: Saturday09/24/22 INR Value: 1.6 INR Date: 09/24/22 Recheck Date: 10/01/22 Rx Instructions: 4 mg PO; warfarin 4 mg (1 Tab) on JOHNSON, , warfarin 6 mg tablet 6 mg PO MOTUTHFR Qty: 48 3RF Protocol: Dose Management Condition: Saturday Dose/Route: 4 mg Instruction: 1 x 4 mg tablet Condition: Saturday Dose/Route: 6 mg Instruction: 1 x 6 mg tablet Condition: Saturday Dose/Route: 6 mg Instruction: 1 x 6 mg tablet Condition: Saturday Dose/Route: 6 mg Instruction: 1 x 6 mg tablet Condition: Dose/Route: 6 mg Instruction: 1 x 6 mg tablet Condition: Saturday Dose/Route: 4 mg Instruction: 1 x 4 mg tablet Condition: Saturday Dose/Route: 4 mg Instruction: 1 x 4 mg tablet Protocol Text: Adjustment Start Date: Saturday09/24/22 INR Value: 1.6 INR Date: 09/24/22 Recheck Date: 10/01/22 ipratropium bromide 0.02 % solution 0.5 mg INHALATION Q6H PRN (Reason: Wheezing) Qty: 150 6RF Primary Care Provider: Marcos Lam Referrals: Marcos Lam MD [Primary Care Provider] - Activity Restrictions/Additional Instructions: Your INR today was 1.7. Instead of a 6 mg pill take two 4 mg pills (a total of 8 mg) tonight. Call your family doctor that manages your Coumadin for further recommendation tomorrow for adjustment of your dosage. Use incentive spirometer and deep breathing to help prevent a secondary pneumonia. Return if you have further concerns. You can use [id number] Tylenol if needed for aches and pains. He can also use [id number] Salonpas patches. Disposition Disposition: Home, Self Care Discharge Date/Time: 10/11/22 00:01
== END 2022-10-11 00:01 | disposition home or self-care (01) ==
PROVIDERS: Emergency Provider Emergency Medicine; PCP Family Medicine; Visit Provider Emergency Medicine
DX: I11.0 Hypertensive heart disease with heart failure (principal); J44.9 Chronic obstructive pulmonary disease, unspecified; I50.32 Chronic diastolic (congestive) heart failure; I48.91 Unspecified atrial fibrillation; S50.01XA Contusion of right elbow, initial encounter; S80.01XA Contusion of right knee, initial encounter; E78.5 Hyperlipidemia, unspecified; S20.211A Contusion of right front wall of thorax, initial encounter; S70.01XA Contusion of right hip, initial encounter; Z79.01 Long term (current) use of anticoagulants; F17.210 Nicotine dependence, cigarettes, uncomplicated; W01.0XXA Fall on same level from slipping, tripping and stumbling without subsequent striking against object, initial encounter
CPT/HCPCS: 70450; 71101; 73080; 73502; 85610; 99283; A4216

== ENCOUNTER 2022-11-20 15:40 | Outpatient (RCR) | payer MEDICARE, OTHER, SELFPAY ==
[2022-10-05 20:57] VITALS: BMI 27.0
[2022-11-20 18:09] LABS: International Normalized Ratio 2.2; Prothrombin Time (Protime)PT. 24.4 SECONDS (11.7-14.9)
== END 2022-11-20 16:40 | disposition home or self-care (01) ==
LOC: MTLAB 15:40
PROVIDERS: PCP Family Medicine; Referring Provider Internal Medicine Cardiovascular Disease; Visit Provider Internal Medicine Cardiovascular Disease
DX: Z79.01 Long term (current) use of anticoagulants
CPT/HCPCS: 36415; 85610

== ENCOUNTER 2023-11-14 16:23 | Outpatient (RCR) | payer MEDICARE, OTHER, SELFPAY ==
[2023-11-14 17:49] LABS: International Normalized Ratio 2.2; Prothrombin Time (Protime)PT. 24.4 SECONDS (11.7-14.9)
[2023-11-14 17:50] LABS: Absolute Lymphocyte Count 1.14 X10^3/uL (0.83-4.51); Absolute Neutrophil Count 3.7 X10^3/uL (2.0-7.7); Basophil# 0.08 X10^3/uL; Basophil% 1.3 % (0-1); Eosinophil# 0.82 X10^3/uL; Hematocrit 47.4 % (40-54); Hemoglobin 15.5 g/dL (13.0-16.5); Lymphocyte # 1.14 X10^3/ul (0.83-4.51); Lymphocyte % 18.1 % (19-41); Mean Corp Hgb Conc 32.7 g/dL (32-36); Mean Corpuscular Hgb 32.7 pg (27.0-32.0); Mean Platelet Vol. 11.4 fl (6.2-12.0); Monocyte# 0.53 X10^3/uL; Monocyte% 8.4 % (0-10); NRBC Flagged by Analyzer 0 % (0-5); Neutrophil # 3.73 X10^3/uL (2.7-7.7); Platelet Count 172 K/mm3 (150-450); RBC Distribution Width CV 14.3 % (11.6-14.6); Red Blood Count 4.74 M/mm3 (4.6-6.2); White Blood Count 6.3 K/mm3 (4.4-11.0)
[2023-11-14 18:18] LABS: Vitamin B12 533 pg/mL (211-911)
[2023-11-14 18:35] LABS: ALB/GLOB Ratio 0.9 RATIO (0.9-2.4); AST(SGOT) 16 U/L (15-37); Alanine Aminotransfer ALT/SGPT 20 U/L (16-61); Albumin, Serum 3.5 g/dL (3.2-5.0); Alkaline Phosphatase 67 U/L (45-117); Anion Gap 5 (5-15); BUN 18 mg/dL (7-18); BUN/Creat Ratio 24.3 RATIO (10-20); Calcium,Total 9.2 mg/dL (8.5-10.1); Chloride 96 mmol/L (98-107); Creatinine, Serum 0.74 mg/dL (0.70-1.30); EST Glomerular Filtration Rate 107 mL/min (>60); Est Glom Filt Rate - Afr Amer 129 mL/min (>60); Globulin 4.1 g/dL (2.2-4.2); Glucose 87 mg/dL (74-106); Potassium 4.1 mmol/L (3.5-5.1); Protein, Total 7.6 g/dL (6.4-8.2); Sodium Level 133 mmol/L (136-145); Thyroid Stim Hormone (TSH) 1.04 uIU/mL (0.358-3.74)
== END 2023-11-14 18:00 | disposition home or self-care (01) ==
LOC: MTLAB 16:23
PROVIDERS: PCP Family Medicine; Referring Provider Internal Medicine Cardiovascular Disease; Visit Provider Internal Medicine Cardiovascular Disease
DX: Z79.01 Long term (current) use of anticoagulants (principal); I48.20 Chronic atrial fibrillation, unspecified; J44.9 Chronic obstructive pulmonary disease, unspecified; R53.81 Other malaise
CPT/HCPCS: 36415; 80053; 82607; 82746; 84443; 85025; 85610

== ENCOUNTER 2024-12-18 20:35 | Emergency (ER) | payer MEDICARE, OTHER, SELFPAY ==
[2024-12-18] VITALS (7 sets, daily range): BP systolic 128–158; BP diastolic 66–98; PULSE 71–74; RESP 16–25; TEMP 36.9; O2SAT 92–94; BMI 24.4
--- NOTE | 2024-12-18 21:19 | CT_ITS ---
PROCEDURE: STROKE CTA HEAD AND NECK W/CON 12/18/2024 REASON FOR EXAM: NEURO DEFICIT, ACUTE, STROKE SUSPECTED TECHNIQUE: STROKE CTA HEAD AND NECK W/CON Multiplanar and multisequence images were obtained. CONTRAST: Isovue 370 VOLUME: 100 mL One or more dose reduction techniques were used (e.g., Automated exposure control, adjustment of the mA and/or kV according to patient size, use of iterative reconstruction technique). RADIATION DOSE SUMMARY: CTDlvol: 36 mGy DLP: 1616 mGycm COMPARISON: Same-day CT head. FINDINGS: See same day CT head for discussion of nonvascular findings. CTA neck: Mixed plaque of the aortic arch vessels resulting in moderate stenosis of the left subclavian artery origin. Mild plaque of the bilateral vertebral arteries at their origins without focal narrowing or occlusion. Calcific plaque of the bilateral cervical carotid arteries resulting in 30% stenosis on the right and 50% stenosis on the left by NASCET criteria. CTA head: Calcific plaque of the bilateral carotid siphons without focal narrowing. 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 Thread-like opacification of the left superior cerebellar artery (series 2, image 358). Opacification of the right superior cerebellar artery just off its origin with distal occlusion (series 2, image 363). The bilateral anterior, middle and posterior cerebral arteries are widely patent. No aneurysm or AVM. Small, well-circumscribed contrast-enhancing lesion along the left superior vertex, compatible with a meningioma (series 2, image 482). Major venous structures: Unremarkable. Other findings: Edentulism. Cervical spondylosis. Severe biapical emphysema. Right upper lobe pulmonary nodule measuring 0.5 cm (series 2, image 39). Spiculated left upper lobe pulmonary nodule measuring 1.5 cm (series 2, image 65). CT/STROKE CTA Head AND Neck W/Con IMPRESSION: 1. 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 2. 50% stenosis of the left ICA by NASCET criteria. 30% stenosis of the right ICA by NASCET criteria. 3. Spiculated left upper lobe pulmonary nodule and additional small right upper lobe pulmonary nodule, concerning for pulmonary neoplasm. Nonemergent CT chest is recommended for further evaluation if not re cently performed. 4. Severe emphysema. Dr. Ron discussed these findings via telephone with Dr. Merritt at 10:08 p.m. o n 12/18/2024. Reading Location: [id number]
--- NOTE | 2024-12-18 21:19 | CT_ITS ---
EXAM: STROKE BRAIN/HEAD WITHOUT CONT CLINICAL HISTORY: 84 y/o M with NEURO DEFICIT, ACUTE, STROKE SUSPECTED. COMPARISON: MRI brain and CT head 10/10/2022. TECHNIQUE: Routine CT imaging of the head without IV contrast. Additional multiplanar reformats were obtained. Dose reduction techniques were used including intermediate exposure control (AEC),iterative reconstruction technique, and/or mA and/or KV dose adjustments based on patient's size. FINDINGS: The ventricles, sulci and cisterns are mildly prominent, suggestive of brain parenchymal volume loss. There is no evidence of intracranial hemorrhage. There is no midline shift, mass effect, or extra-axial collection. Moderate patchy supratentorial white matter hypodensities. Prior ocular lens replacements. Inspissated secretions within the right maxillary sinus and anterior ethmoid air cells. Retention cysts or polyps within the left maxillary sinus. The visualized paranasal sinuses and mastoids are unremarkable. No acute calvarial fracture or scalp hematoma. CT/STROKE Brain/Head without Cont IMPRESSION: No acute intracranial finding. Dr. Ron discussed these findings via telephone with Dr. Merritt at 9:35 p.m. on 12/18/2024. Reading Location: [id number]
--- NOTE | 2024-12-18 21:21 | EDS_ITS ---
HPI History of Present Illness Chief Complaint: Weakness Informant: patient, spouse/S.O. and family Narrative Narrative: Brought by EMS from home increasing weakness. Spouse daughter currently present. He ambulates with a walker at baseline. History of chronic A-fib. Ran out of his Eliquis for a week restarted 2 days ago. Last normal 11 PM per spouse 22 hours ago. States 3:30 AM spouse was awakened to help him up the stairs he had trouble. He seemed a little off. Throughout the day increasing weakness and speech not making sense. Left leg seem to be weaker per daughter. No stroke history. He states mild headache. Intermittent cough with COPD. Denies dysuria. Denies vomiting or diarrhea. Prior similar symptoms: No PFSH PFSH Medical History Loss of hearing Wears glasses Wears dentures Anxiety Alcohol use Skin tear Ambulates with cane Arthritis Prostate disease Injury of head and neck Gastric reflux TIA (transient ischemic attack) History of diverticulitis Smoker CPAP (continuous positive airway pressure) dependence On home oxygen therapy Shortness of breath on exertion History of pain when walking History of edema History of echocardiogram History of stress test Cardiology follow-up encounter History of atrial fibrillation Nicotine dependence Essential (primary) hypertension Actinic keratosis of left cheek Actinic keratosis Neoplasm of unspecified behavior of bone, soft tissue, and skin Vision problems GERD (gastroesophageal reflux disease) PROSTATE PROBLEMS Hearing problem Migraines Gastrointestinal problem Glaucoma Anxiety and depression Cataracts, bilateral UTI (urinary tract infection) Back problem Bone fracture Sleep apnea Hypertriglyceridemia Chronic diastolic (congestive) heart failure Chronic atrial fibrillation Alcohol abuse Diverticulosis Severe chronic obstructive pulmonary disease Panic disorder with agoraphobia Hyperlipidemia Generalized anxiety disorder Medical History no medical history Home Medications ?Medication ?Instructions ?Recorded ?Last Taken ?Type albuterol sulfate 90 mcg/actuation 1 puff IH Q8 PRN SO B 04/25/15 08/22/16 History aerosol inhaler carvedilol 12.5 mg tablet 12.5 mg PO QPM 04/05/20 Unkn own History carvedilol 25 mg tablet (Coreg) 25 mg PO QAM 04/05/20 Unknown History bimatoprost 0.01 % eye drops 1 drp ophthalmic (eye) QP M 10/17/20 Unknown History calcium citrate 250 mg PO BID 10/17/20 Unkno wn History fluorometholone 0.1 % eye 1 drp ophthalmic (eye) QWEEK 10/17/20 Unknown History drops,suspension fluticasone propionate 50 2 spray intranasal DAILY PRN 10/17/20 Unknown History mcg/actuation nasal Congestion spray,suspension (Children's Flonase Allergy Relief) magnesium oxide 400 mg (241.3 mg 400 mg PO BID dificie ncy 10/17/20 Unknown History magnesium) tablet multivitamin 1 tablet PO DAILY 10/17/20 U nknown History duloxetine 20 mg capsule,delayed 20 mg PO DAILY PRN An xiety 11/24/20 Unknown History release lisinopril 10 mg tablet 10 mg PO DAILY #30 tabs 01/26 Unknown Rx fluticasone furoate 200 1 inh inhalation QDAY #30 ea 06/18/23 Unknown Rx mcg/actuation blister powder for inhalation (Arnuity Ellipta) albuterol sulfate 2.5 mg/3 mL 2.5 mg (3 mL) inhalation .qid PRN 06/25/23 Unknown Rx (0.083 %) solution for nebulization Wheezing #180 mL ipratropium bromide 0.02 % 0.5 mg (2.5 mL) inhalation Q6H PRN 06/25/23 Unknown Rx solution for inhalation Wheezing #150 mL apixaban 5 mg tablet 5 mg PO BID #60 tabs 5 Unknown Rx Allergy/AdvReac Type Severity Reaction Status Date / Time amlodipine (From Norvasc) AdvReac elevated Verified 12/09/23 14:04 bilirubin disopyramide phosphate (From AdvReac Other Verified 12/09/23 14:04 Norpace) metoprolol AdvReac SOB Verified 12/09/23 14:04 Family History Mother Hypertension A-fib Anxiety History of blood transfusion Bowel disease Colon cancer Depression (emotion) Father COPD (chronic obstructive pulmonary disease) Asthma Depression (emotion) Respiratory disease Sister Breast cancer Anxiety Grandfather Alcoholism Family History no significant family his Surgical History Hx of colonoscopy History of cataract removal with insertion of prosthetic lens History of cardioversion S/P tendon repair H/O cornea transplant H/O repair of left rotator cuff History of umbilical hernia repair History of right inguinal hernia repair Surgical History no surgical history Social History Smoking Status: Current every day smoker tobacco type: cigarettes alcohol intake: current alcohol intake frequency: 3 or more drinks per day Alcohol type: beer substance use type: does not use caffeine: Yes Type: coffee Number of servings: 2 additional social history: DOES NOT USE ASPIRIN DOES NOT USE IBUPROFEN ROS ROS ED Constitutional Constitutional ED: Denies chills, fever(s) or sweats ENT ENT ED: Denies sore throat Cardiovascular Cardiovascular: Denies chest pain, leg edema, palpitations or racing heartbeat Respiratory/Chest Respiratory/Chest: Reports cough; Denies dyspnea or dyspnea on exertion Gastrointestinal Gastrointestinal: Denies abdominal pain, diarrhea, nausea or vomiting Genitourinary Genitourinary ED: Denies dysuria, hematuria or urinary frequency Musculoskeletal Musculoskeletal: Denies back pain, extremity pain or neck pain Integumentary Denies rash or wounds Neurologic Neurologic: Reports headache(s) and weakness; Denies paresthesias EXAM Physical Exam Const Vital Signs: 12/18/24 20:37 12/18/24 20:45 12/18/24 21:19 Temperature 98.5 F Temperature Source Oral Pulse Rate 73 71 Respiratory Rate 17 19 H Respiratory Pattern Normal Blood Pressure 128/80 H 139/66 H Blood Pressure Mean 96 90 Pulse Ox 92 93 Oxygen Delivery Method Room Air 12/18/24 21:36 12/18/24 21:38 12/18/24 21:49 Temperature Temperature Source Pulse Rate 73 74 Respiratory Rate 16 25 H Respiratory Pattern Blood Pressure 139/66 H 158/98 H Blood Pressure Mean 90 118 Pulse Ox 94 92 Oxygen Delivery Method Room Air Room Air 12/18/24 22:19 12/18/24 22:25 12/18/24 22:30 Temperature 98.5 F Temperature Source Pulse Rate 72 72 73 Respiratory Rate 23 H 23 H Respiratory Pattern Blood Pressure 146/67 H 146/67 H 156/75 H Blood Pressure Mean 93 93 102 Pulse Ox 94 94 94 Oxygen Delivery Method Positive well nourished and well developed Constitutional Narrative: Nontoxic. General Appearance ED: well developed and NAD HEENT Reports moist mucous membranes normocephalic and atraumatic Eyes General Eye ED: Yes normal appearance of both eyes Neck full ROM Chest Wall Chest: Negative for tenderness Resp normal respiratory effort and normal air movement Effort and Inspection: symmetric chest movement; Negative for respiratory distress Cardio regular rate and no murmurs Peripheral Pulses: pulses 2+ throughout GI normal to inspection, nondistended, normoactive bowel sounds and non-tender Palpation: Negative for guarding or rebound tenderness present Extremity normal to inspection General Extremety ED: Negative for edema or tenderness General Extremity: Negative for edema Neuro oriented x3 and no sensory deficits noted Neuro Narrative: Weakness of lower extremities. NIH of 5 for not knowing the month, slight lip droop, dysarthria, drifting of both legs. Sensorium / Orientation: awake and alert Skin no rashes or lesions noted and no wounds MDM MDM MDM Narrative Medical decision making narrative: Interventions / MDM: Differential diagnosis: Stroke, thrombus Diagnosis considered but do not suspect: Intracranial hemorrhage however CT negative. My EKG interpretation: N/A Imaging independently reviewed and interpreted by myself: CT brain in discussion with radiologist no acute process. CT angiogram head and neck: Discussed with stroke neurologist Dr. Rangel concerning for a floating thrombus basilar artery. 1 view chest x-ray: Right lower lobe opacification also read by radiology. External documents reviewed: N/A Test considered but not ordered:N/A ED course: Patient presentation concerns for stroke symptoms left-sided deficits with NIH of 5. He is 22 hours from symptoms inside the 24-hour window. Stroke call initiated CT brain CT angiogram. EKG rate controlled A-fib, took his Eliquis last 2 days. He is not a TNK candidate both from timeframe and Eliquis therapy. However potential thrombectomy candidate. CT brain discussion with radiologist no intracranial hemorrhage. 2158: I discussed with stroke neurologist Dr. Rangel who reviewed the CT angiogram concerning for floating thrombus in the basilar artery. We discussed the onset of symptoms and history. She recommends he be can swallow to give him 600 mg of Plavix recommending transfer directly to [facility] ED for neurology evaluation. States if clinically worsens he still would be reevaluate for thrombectomy. Discussed this with the family. He has been swallowing at home. Bedside swallow will be performed by nursing with Plavix ordered. Family updated. Labs white count 7.4 hemoglobin 14.5. Creatinine 0.65. Initial troponin 31. 2210: Discussed with radiologist Dr. Ron and CT angiogram results confirming basilar artery thrombus also notes a right superior cerebellar thrombus, possible left superior cerebellar thrombus. 2240: Results of chest x-ray right lower lobe opacification. Family reports cough with COPD history no worsening cough. Is white count normal at 7.4. Oxygen stable at 92% on room air. Patient currently being transported at this time. Re-evaluation: stable Disposition discussed with patient/family/significant other: Patient and family Case discussed with consulting clinician: Telemetry neurologist, radiologist This note was generated with [email or web address] dictation software. It may contain incorrect words, spelling, and punctuation that were not noted in checking the note before signing. Lab Data Attestation: I reviewed the patient's lab results. Labs: Laboratory Results - last 24 hr 12/18/24 12/18/24 12/18/24 20:56 21:21 22:05 WBC 7.4 RBC 4.47 L Hgb 14.5 Hct 42.9 MCV 96.0 H MCH 32.4 H MCHC 33.8 RDW Std Deviation 50.4 H RDW Coeff of Caterina 14.4 Plt Count 141 L MPV 11.8 Immature Gran % (Auto) 0.300 Neut % (Auto) 68.8 Lymph % (Auto) 14.1 L [place] % (Auto) 8.0 Eos % (Auto) 8.1 H Baso % (Auto) 0.7 Absolute Neuts (auto) 5.1 Absolute Lymphs (auto) 1.04 Nucleated RBC % 0 PT 16.7 H INR 1.3 APTT 33.5 Sodium 134 Potassium 4.2 Chloride 96 L Carbon Dioxide 27.3 Anion Gap 11 BUN 17 Creatinine 0.65 L Estim Creat Clear Calc 69.70 Est GFR (MDRD) Non-Af 92 BUN/Creatinine Ratio 25.7 H Glucose 99 Calcium 9.2 Troponin T High Sens 31 H Urine Color Yellow Urine Clarity Clear Urine pH 7.0 Ur Specific [place] 1.005 Urine Protein 100 H Urine Glucose (UA) Normal Urine Ketones Negative Urine Occult Blood 10 H Urine Nitrite Negative Urine Bilirubin Negative Urine Urobilinogen Normal Ur Leukocyte Esterase Negative Urine RBC 0-5 SEEN Urine WBC 0 SEEN Ur Squamous Epith Cells 0 SEEN Urine Bacteria 0 SEEN Urine Mucus 0 SEEN POC Glucose 101 Radiography Diagnostic Testing: Clinical Impression(s) from Imaging Studies Brain CT 12/18/24 21:19 IMPRESSION: No acute intracranial finding. Dr. Ron discussed these findings via telephone with Dr. Merritt at 9:35 p.m. on 12/18/2024. Reading Location: [facility] Head/Neck CTA 12/18/24 21:19 IMPRESSION: 1. 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 2. 50% stenosis of the left ICA by NASCET criteria. 30% stenosis of the right ICA by NASCET criteria. 3. Spiculated left upper lobe pulmonary nodule and additional small right upper lobe pulmonary nodule, concerning for pulmonary neoplasm. Nonemergent CT chest is recommended for further evaluation if not recently performed. 4. Severe emphysema. Dr. Ron discussed these findings via telephone with Dr. Merritt at 10:08 p.m. on 12/18/2024. Reading Location: [facility] Chest X-Ray 12/18/24 22:10 IMPRESSION: 1. Increased right lower lung zone opacification, which may represent pneumonitis/pneumonia.The small biapical pulmonary nodules seen on same-day CTA neck are not well-visualized by radiographic imaging. 2. Stable mild cardiomegaly. Reading Location: [facility] Discharge Plan Triage Chief Complaint: Weakness ED Provider: Fausto Merritt Dx/Rx/DC Orders Clinical Impression: Chronic atrial fibrillation, skilled nursing current use of anticoagulant, Acute cerebrovascular accident (CVA), Basilar artery thrombosis Prescriptions: No Action carvedilol [Coreg] 25 mg tablet 25 mg PO QAM carvedilol 12.5 mg tablet 12.5 mg PO QPM fluticasone propionate [Children's Flonase Allergy Rlf] 50 mcg/actuation spray,suspension 2 spray INTRANASAL DAILY PRN (Reason: Congestion) Rx Instructions: administer into each nostril multivitamin Tablet 1 tablet PO DAILY calcium citrate 250 mg calcium tablet 250 mg PO BID fluorometholone 0.1 % drops,suspension 1 drp OPHTHALMIC QWEEK bimatoprost 0.01 % drops 1 drp OPHTHALMIC QPM Patient Comments: INSTILL 1 DROP INTO EACH EYE AT BEDTIME duloxetine 20 mg capsule,delayed release(DR/EC) 20 mg PO DAILY PRN (Reason: Anxiety) Patient Comments: TAKE 1 CAPSULE BY MOUTH ONCE DAILY lisinopril 10 mg tablet 10 mg PO DAILY Qty: 30 8RF albuterol sulfate 6.7 GM HFA aerosol inhaler 1 puff IH Q8 PRN (Reason: SOB) Patient Comments: shortness of breath magnesium oxide 400 mg (241.3 mg magnesium) tablet 400 mg PO BID Patient Comments: supplement Arnuity Ellipta 200 mcg/actuation blister with device 1 inh inhalation QDAY Qty: 30 6RF Rx Instructions: administer at approximately the same time(s) each day albuterol sulfate 2.5 mg /3 mL (0.083 %) solution for nebulization 2.5 mg INHALATION .qid PRN (Reason: Wheezing) Qty: 180 6RF ipratropium bromide 0.02 % solution 0.5 mg INHALATION Q6H PRN (Reason: Wheezing) Qty: 150 6RF apixaban 5 mg tablet 5 mg PO BID Qty: 60 11RF Primary Care Provider: Marcos Lam Referrals: Marcos Lam MD [Primary Care Provider] - Print Language: Lithuanian Disposition Disposition: DC/Tx to Another Type of HCF Discharge Date/Time: 12/18/24 22:52 NIHSS NIHSS 1a. Level of Consciousness: 0 - Alert; keenly responsive 1b. LOC Questions: 1 - Answers ONE question correctly 1c. LOC Commands: 0 - Performs BOTH tasks correctly 2. Best Gaze: 0 - Normal 3. Visual: 0 - No visual loss 4. Facial Palsy: 1 - Minor paralysis (flattened nasolabial fold, asymmetry on smiling) 5a. Left Arm: 0 - No drift; arm holds 90 (or 45) degrees for full 10 seconds 5b. Right Arm: 0 - No drift; arm holds 90 (or 45) degrees for full 10 seconds 6a. Left Le - Drift; leg falls by the end of 5-seconds, but does not hit bed 6b. Right Le - Drift; leg falls by the end of 5-seconds, but does not hit bed 7. Limb Ataxia: 0 - Absent 8. Sensory: 0 - Normal; no sensory loss 9. Best Language: 0 - No aphasia; normal 10. Dysarthria: 1 = [id number] dysarthria; 11. Extinction and Inattention: 0 - No abnormality Total: 5 Stroke Questions Stroke Team Activated: Yes Reviewed Inclusion/Exclusion criteria: Yes Was Patient considered for Endovascular Intervention?: Yes IV Thrombolytic Administered: No (On Eliquis. Outside the window.)
--- OUTSIDE RECORDS SUMMARY | 2024-12-18 21:21 | XMS RPT_ITS | CCD ---
Author Organization [facility] Care Team Providers [place] Recorder Name Role Phone None, No PCP Unavailable Unavailable Unavailable Unavailable MD SHAHAB GIBSON Referring Unavailabl e MD SHAHAB GIBSON Attending Unavailabl e PAIGE, MD SHAHAB BLACKMAN Referring Unavailabl e PAIGE, MD SHAHAB BLACKMAN Attending Unavailabl e PAIGE, MD SHAHAB BLACKMAN Referring Unavailabl e MD SHAHAB GIBSON Attending Unavailabl e PAIGE, MD SHAHAB BLACKMAN Referring Unavailabl e PAIGE, MD SHAHAB BLACKMAN Attending Unavailabl e PAIGE, MD SHAHAB BLACKMAN Referring Unavailabl e PAIGE, MD SHAHAB BLACKMAN Attending Unavailabl e Medications Completed/Discontinued Medications Medication Drug Class(es) Dates Sig (Normalized) Sig (Original) [id number] 200 actuat albuterol 0.09 mg/actuat metered dose inhaler (2 sources) beta2-Adrenergic Agonist Ventolin HFA 108 (90 Base) MCG/ACT Inhalation Aerosol Solution Quantity: 0 Refills: 0 Ordered: 29-May-2022 DO Active betamethasone 0.5 mg/ml / clotrimazole 10 mg/ml topical cream (2 sources) Azole Antifungal, Corticosteroid Start: 05-29-2022 Clotrimazole-Beta methasone 1-0.05 % External Cream APPLY AND RUB IN A THIN FILM TO AFFECTED AREAS TWICE DAILY.(AM AND PM). Quantity: 1 Refills: 1 Ordered: 29-May-2022 Shahab Gibson II, MD Start : 29-May-2022 Active bicalutamide 50 mg oral tablet (1 source) Androgen Receptor Inhibitor Start: 06-26-2022 take 1 tablet by mouth once daily Bicalutamide 50 MG Oral Tablet TAKE 1 TABLET DAILY. Quantity: 21 Refills: 0 Ordered: 26-Jun-2022 Shahab Gibson II, MD Start : 26-Jun-2022 Active bimatoprost 0.3 mg/ml ophthalmic solution (2 sources) Prostaglandin Analog Lumigan 0.0 3 % SOLN Quantity: 0 Refills: 0 Ordered: 29-May-2022 DO Active carvedilol 12.5 mg oral tablet (2 sources) alpha-Adrenergic Rossi, beta-Adrenergic Rossi Carvedilol 12.5 MG Oral Tablet Quantity: 0 Refills: 0 Ordered: 29-May-2022 DO Active magnesium oxide 400 mg oral capsule (2 sources) Magnesium Oxide 400 MG CAPS Quantity: 0 Refills: 0 Ordered: 29-May-2022 DO Active warfarin sodium 4 mg oral tablet (4 sources) Vitamin K Antagonist Start: 05-25-2022 take 1 tablet by mouth once daily Warfarin Sodium 4 MG Oral Tablet TAKE 1 TABLET BY MOUTH ONCE DAILY ON SATURDAY, SATURDAY AND SATURDAY Quantity: 14 Refills: 0 Ordered: 25-May-2022 DO Start : 25-May-2022 Active Start: 05-25-2022 take 1 tablet by mouth once Wa rfarin Sodium 6 MG Oral Tablet TAKE 1 TABLET EVERY SATURDAY, SATURDAY, SATURDAY & SATURDAY Quantity: 18 Refills: 0 Ordered: 25-May-2022 DO Start : 25-May-2022 Active Problems Problem Classification Problem Date Documented Da te Episodic/Chronic Genitourinary symptoms and ill-defined conditions (2 sources) Nocturia; Translations: [Nocturia] Episodic Hyperplasia of prostate (2 sources) Benign prostatic hypertrophy with outflow obstruction; Translations: [Benign localized hyperplasia of prostate with urinary obstruction and other lower urinary tract symptoms (LUTS)] Chronic Other male genital disorders (2 sources) Male erectile dysfunction, unspecified; Translations: [Erectile dysfunction] Chronic Other screening for suspected conditions (not mental disorders or infectious disease) (2 sources) Raised prostate specific antigen; Translations: [Elevated prostate specific antigen [PSA]] Episodic Other skin disorders (2 sources) Rash of genitalia; Translations: [Unspecified disorder of penis] Episodic Results Test Name Value Interpretation Reference Range Facil ity Office Visit (Urology)on Follow-up visit Diagnoses/Problems Assessed Benign prostatic hyperplasia with urinary obstruction and other lower urinary tract symptoms (600.21) (N40.1,N13.8) Elevated PSA (790.93) (R97.20) Erectile dysfunction (607.84) (N52.9) Nocturia (788.43) (R35.1) Never smoked tobacco (V49.89) (Z78.9) Orders SocHx: Never smoked tobacco Tobacco Use Screening; Status:Complete; Done: 20Sep2022 Perform:Not Applicable;Ordered; For:SocHx: Never smoked tobacco; Ordered By:Jolynn Piña; Patient Discussion/Summary All available PSA values reviewed, Options discussed. Questions answered. patient declines LUPRON-Patient aware of risks of prostate cancer and and accepts these risks Patient declines Bx or Tx F/U PRN-Patient accepts risks Chief Complaint An interactive audio and video telecommunication system which permits real time communications between the patient (at the originating site) and provider (at the distant site) was utilized to provide this telehealth service. Verbal consent was requested and obtained from NARESH HOLLIS on this date, 09/20/2022 11:00 AM , for a telehealth visit. 1 week f/u History of Present IllnessPatient is here for 1 week f/u w/ PSA results. Hx of elevated PSA. He was given Casodex last visit and will decided to take this after PSA results. He declines bx or MRI. Most recent PSA was 176 on 09/27. Prior PSA was . 163 on 05/29. . Prior PSA was 117 in 2020. Never had a bx of the prostate. Normal bone scan at [place] on 03/29. Chronic LUTS sx are mild and stable. Some urgency and frequency. Some hesitancy and weak stream. Denies dysuria. Denies hematuria. Nocturia x1. No medication for LUT'S. ED is chronic. No medication for this. Review of Systems Constitutional: No fever, No chills. Eye: glasses Ear/Nose/Mouth/Throat: Negative. Respiratory: 02 Cardiovascular: No chest pain, No peripheral edema. Gastrointestinal: No nausea, Genitourinary: Negative except as documented in history of present illness. Hematology/Lymphatics: Patient denies being on blood thinners.. Endocrine: Negative. Immunologic: Not immunocompromised. Musculoskeletal: joint pain, uses cane Integumentary: Negative. Neurologic: Alert and oriented X4. Psychiatric: Negative Active Problems Problems Benign prostatic hyperplasia with urinary obstruction and other lower urinary tract symptoms (600.21) (N40.1,N13.8) Elevated PSA (790.93) (R97.20) Erectile dysfunction (607.84) (N52.9) Nocturia (788.43) (R35.1) Penile rash (607.9) (R21) Surgical History Problems History of Femur fracture repair History of Shoulder surgery Family History Mother No pertinent family history Father No pertinent family history Social History Problems Never smoked tobacco (V49.89) (Z78.9) Allergies Medication No Known Drug Allergies Recorded By: Arielle Miranda; 05/29/2022 2:06:03 PM Current Meds Medication NameInstruction Bicalutamide 50 MG Oral TabletTAKE 1 TABLET DAILY. Carvedilol 12.5 MG Oral Tablet Clotrimazole-Betamethas one 1-0.05 % External CreamAPPLY AND RUB IN A THIN FILM TO AFFECTED AREAS TWICE DAILY.(AM AND PM). Lumigan 0.03 % SOLN Magnesium Oxide 400 MG CAPS Ventolin HFA 108 (90 Base) MCG/ACT Inhalation Aerosol Solution Warfarin Sodium 4 MG Oral TabletTAKE 1 TABLET BY MOUTH ONCE DAILY ON SATURDAY, SATURDAY AND SATURDAY Warfarin Sodium 6 MG Oral TabletTAKE 1 TABLET EVERY SATURDAY, SATURDAY, SATURDAY AND SATURDAY Physical Exam No physical exam done given the virtual nature of the visit Signatures Electronically signed by : Shahab Gibson II, MD; Sep 20 2022 10:30AM EST (Author) Normal 5151tuan Office Visit (Urology)on Follow-up visit Diagnoses/Problems Assessed Elevated PSA (790.93) (R97.20) Nocturia (788.43) (R35.1) Erectile dysfunction (607.84) (N52.9) Never smoked tobacco (V49.89) (Z78.9) Patient Discussion/Summary All available PSA values reviewed, Options discussed. Questions answered Pros and cons of prostate biopsy reviewed. Other options discussed. Questions answered Patient declines Bx or MRI Casodex given again-Patient will decide after latest PSA if he will take Pros/cons of LUpron discussed Diet changes for prostate health discussed and educational information given. Pros/Cons of prostate health supplements discussed. Treatment options for LUTS reviewed Discussed timed voiding. Discussed fluid and caffeine intake Observe ED Lifestyle change to help prevent UTIs discussed. Encouraged fluid intake. F/U virtual Next week Chief Complaint DISCUSS MEDICATION History of Present IllnessPatient is here to discuss medication (casodex) . He was seen on 06/26/22. He was given Casodex and superposed to f/u for Lupron. He declines a bx of the prostate. He does not understand why he needs Casodex Most recent PSA was 163 on 05/29. . Prior PSA was 117 in 2020. Never had a bx of the prostate. Normal bone scan at [place] on 03/29. Chronic LUTS sx are mild and stable. Some urgency and frequency. Some hesitancy and weak stream. Denies dysuria. Denies hematuria. Nocturia x1. No medication for LUT'S. ED is chronic. No medication for this. Review of Systems Constitutional: No fever, No chills. Eye: glasses Ear/Nose/Mouth/Throat: Negative. Respiratory: 02 Cardiovascular: No chest pain, No peripheral edema. Gastrointestinal: No nausea, Genitourinary: Negative except as documented in history of present illness. Hematology/Lymphatics: Patient denies being on blood thinners.. Endocrine: Negative. Immunologic: Not immunocompromised. Musculoskeletal: joint pain, uses cane Integumentary: Negative. Neurologic: Alert and oriented X4. Psychiatric: Negative. Active Problems Problems Benign prostatic hyperplasia with urinary obstruction and other lower urinary tract symptoms (600.21) (N40.1,N13.8) Elevated PSA (790.93) (R97.20) Erectile dysfunction (607.84) (N52.9) Nocturia (788.43) (R35.1) Penile rash (607.9) (R21) Surgical History Problems History of Femur fracture repair History of Shoulder surgery Family History Mother No pertinent family history Father No pertinent family history Social History Problems Never smoked tobacco (V49.89) (Z78.9) Allergies Medication No Known Drug Allergies Recorded By: Arielle Miranda; 05/29/2022 2:06:03 PM Current Meds Medication NameInstruction Bicalutamide 50 MG Oral TabletTAKE 1 TABLET DAILY. Carvedilol 12.5 MG Oral Tablet Clotrimazole-Betamethas one 1-0.05 % External CreamAPPLY AND RUB IN A THIN FILM TO AFFECTED AREAS TWICE DAILY.(AM AND PM). Lumigan 0.03 % SOLN Magnesium Oxide 400 MG CAPS Ventolin HFA 108 (90 Base) MCG/ACT Inhalation Aerosol Solution Warfarin Sodium 4 MG Oral TabletTAKE 1 TABLET BY MOUTH ONCE DAILY ON SATURDAY, SATURDAY AND SATURDAY Warfarin Sodium 6 MG Oral TabletTAKE 1 TABLET EVERY SATURDAY, SATURDAY, SATURDAY AND SATURDAY Vitals Vital Signs Recorded: 12Sep2022 01:32PM Heart Rate64 Dipmklns677 Alrewzwcc76 Qyezca371 lb BMI Waknuagqyy50.82 kg/m2 BSA Calculated1.96 Tobacco Usea) Yes Patient encouraged to stop using tobacco productsYes PHQ-2 Patient Declined/Screening not indicatedYes Falls Screening (Age 18+)a) No falls within the last year Physical Exam A/O x 3 in No apparent distress Constitutional: General appearance normal Respiratory: Respiratory effort is normal Gastrointestinal:Abdome n is not tender Genitourinary: Kidneys: Not palpable Bilaterally Bladder: Not palpable or tender Scrotum: No mass. LEFT Hydrocele Epididymis: No spermatocele. Not tender Testicles: no mass Urethra: No Discharge Penis: WNL...No lesions Prostate: Symmetric. No Nodules Seminal Vesicles: No mass Sphincter Tone: normal Signatures Electronically signed by : Shahab Gibson II, MD; Sep 12 2022 1:42PM EST (Author) Normal 5151tuan Tobacco Screening.on 023 Fall risk assessment a) No falls within the last year RC-Eauwmja-Yyig and Work Phone: Tobacco use status [facility] a) Yes HM-Orpeemw-Zdzh and Work Phone: Tobacco Screening. Yes YP-Wttignu-Grej and Work Phone: Office Visit (Urology)on Follow-up visit Diagnoses/Problems Assessed Benign prostatic hyperplasia with urinary obstruction and other lower urinary tract symptoms (600.21) (N40.1,N13.8) Elevated PSA (790.93) (R97.20) Erectile dysfunction (607.84) (N52.9) Nocturia (788.43) (R35.1) Never smoked tobacco (V49.89) (Z78.9) Orders SocHx: Never smoked tobacco Tobacco Use Screening; Status:Complete; Done: [id number] Perform:Not Applicable;Ordered; For:SocHx: Never smoked tobacco; Ordered By:Jolynn Piña; Patient Discussion/Summary All available PSA values reviewed, Options discussed. Questions answered. Pros and cons of prostate biopsy reviewed. Other options discussed. Questions answered patio=ient declines Bx Casodex given Lupron discussed in Detail Bone Scan requested Treatment options for LUTS reviewed Discussed timed voiding. Discussed fluid and caffeine intake Observe ED F/U Lupron after Casodex 50mg started Chief Complaint An interactive audio and video telecommunication system which permits real time communications between the patient (at the originating site) and provider (at the distant site) was utilized to provide this telehealth service. Verbal consent was requested and obtained from NARESH HOLLIS on this date, 06/25/2022 10:45 AM , for a telehealth visit. PSA results History of Present IllnessPatient is here for PSA results. Most recent PSA was 163 on 05/29. . Prior PSA was 117 in 2020. Never had a bx of the prostate. Normal bone scan at [place] on 03/29. Chronic LUTS sx are mild and stable. Some urgency and frequency. Some hesitancy and weak stream. Denies dysuria. Denies hematuria. Nocturia x1. No medication for LUT'S. No hx of kidney stones. ED is chronic. No medication for this. Review of Systems Constitutional: No fever, No chills. Eye: glasses Ear/Nose/Mouth/Throat: Negative. Respiratory: No shortness of breath, No cough. Cardiovascular: No chest pain, No peripheral edema. Gastrointestinal: No nausea, Genitourinary: Negative except as documented in history of present illness. Hematology/Lymphatics: warfarin Endocrine: Negative. Immunologic: Not immunocompromised. Musculoskeletal: Negative Integumentary: Negative. Neurologic: Alert and oriented X4. Psychiatric: Negative. Active Problems Problems Benign prostatic hyperplasia with urinary obstruction and other lower urinary tract symptoms (600.21) (N40.1,N13.8) Elevated PSA (790.93) (R97.20) Erectile dysfunction (607.84) (N52.9) Nocturia (788.43) (R35.1) Penile rash (607.9) (R21) Surgical History Problems History of Femur fracture repair History of Shoulder surgery Family History Mother No pertinent family history Father No pertinent family history Social History Problems Never smoked tobacco (V49.89) (Z78.9) Allergies Medication No Known Drug Allergies Recorded By: Arielle Miranda; 05/29/2022 2:06:03 PM Current Meds Medication NameInstruction Carvedilol 12.5 MG Oral Tablet Clotrimazole-Betamethas one 1-0.05 % External CreamAPPLY AND RUB IN A THIN FILM TO AFFECTED AREAS TWICE DAILY.(AM AND PM). Lumigan 0.03 % SOLN Magnesium Oxide 400 MG CAPS Ventolin HFA 108 (90 Base) MCG/ACT Inhalation Aerosol Solution Warfarin Sodium 4 MG Oral TabletTAKE 1 TABLET BY MOUTH ONCE DAILY ON SATURDAY, SATURDAY AND SATURDAY Warfarin Sodium 6 MG Oral TabletTAKE 1 TABLET EVERY SATURDAY, SATURDAY, SATURDAY AND SATURDAY Physical Exam Virtual Visit Signatures Electronically signed by : Shahab Gibson II, MD; Jun 26 2022 11:46AM EST (Author) Normal 5151tuan Office Visit (Urology)on Follow-up visit Diagnoses/Problems Assessed Benign prostatic hyperplasia with urinary obstruction and other lower urinary tract symptoms (600.21) (N40.1,N13.8) Elevated PSA (790.93) (R97.20) Erectile dysfunction (607.84) (N52.9) Nocturia (788.43) (R35.1) Patient Discussion/Summary All available PSA values reviewed, Options discussed. Questions answered. New PSA ordered Discussed MRI Pros and cons of prostate biopsy reviewed. Other options discussed. Questions answered Treatment options for LUTS reviewed Discussed timed voiding. Discussed fluid and caffeine intake Observe ED Lifestyle change to help prevent UTIs discussed. Encouraged fluid intake. BONE SCAN from [place] requested-Normal Lotrisone Rx given F/u AFter PSA Chief Complaint ELEVATED PSA History of Present IllnessPatient is here to be established for elevated PSA. Most recent PSA was 117 in 2020. Prior PSA was 12. He states at the time he declined to do a biopsy...Bone Scan was negative. Chronic LUTS sx are mild and stable. Some urgency and frequency. Some hesitancy and weak stream. Denies dysuria. Denies hematuria. Nocturia x1. No medication for LUT'S. No hx of kidney stones. ED is chronic. No medication for this. Review of Systems Constitutional: No fever, No chills. Eye: GLASSES Ear/Nose/Mouth/Throat: Negative. Respiratory: No shortness of breath, No cough. Cardiovascular: No chest pain, No peripheral edema. Gastrointestinal: No nausea, Genitourinary: Negative except as documented in history of present illness. Hematology/Lymphatics: WARFARIN Endocrine: Negative. Immunologic: Not immunocompromised. Musculoskeletal: JOINT PAIN, WALKS WITH CANE Integumentary: Negative. Neurologic: Alert and oriented X4. Psychiatric: Negative. Surgical History Problems History of Femur fracture repair History of Shoulder surgery Family History Mother No pertinent family history Father No pertinent family history Allergies Medication No Known Drug Allergies Recorded By: Arielle Miranda; 05/29/2022 2:06:03 PM Current Meds Medication NameInstruction Carvedilol 12.5 MG Oral Tablet Lumigan 0.03 % SOLN Magnesium Oxide 400 MG CAPS Ventolin HFA 108 (90 Base) MCG/ACT Inhalation Aerosol Solution Vitals Vital Signs Recorded: 29May2022 01:59PM Heart Rate79 Alpydcte025 Wedscavfi82 Height5 ft 10 in Lflfte203 lb BMI Sbesnxaecu13.4 kg/m2 BSA Calculated1.98 Tobacco Usea) Yes Patient encouraged to stop using tobacco productsYes PHQ-2 #1. Over the last 2 weeks have you felt down, depressed or hopeless? (If yes, answer PHQ-9 below)No PHQ-2 #2. Over the last 2 weeks have you felt little interest or pleasure in doing things? (If yes, answer PHQ-9 below)No Falls Screening (Age 18+)a) No falls within the last year Physical Exam A/O x 3 in No apparent distress Constitutional: General appearance normal Respiratory: Respiratory effort is normal Gastrointestinal:Abdome n is not tender Genitourinary: Kidneys: Not palpable Bilaterally Bladder: Not palpable or tender Scrotum: No mass. LEFT Hydrocele Epididymis: No spermatocele. Not tender Testicles: no mass Urethra: No Discharge Penis: WNL...No lesions. uncircumcised. mild balanitis Prostate: Symmetric. No Nodules. smooth NORMAL EXAM despite PSA Seminal Vesicles: No mass Sphincter Tone: normal Signatures Electronically signed by : Shahab Gibson II, MD; May 29 2022 2:16PM EST (Author) Normal 5151tuan Tobacco Cessationon 05-29-20 Adult depression screening assessment No CK-Dbnjgve-Dpql and Work Phone: Fall risk assessment a) No falls within the last year CG-Zzotacm-Apkt and Work Phone: Tobacco use status [facility] a) Yes GD-Rzekamx-Cspi and Work Phone: Tobacco Cessation Yes MP-Urol ogy-Ashl and Work Phone: Vital Signs Date Time Vital Sign Value Performing Clinician Faci lity 09-12-2022 13:32-0500 Body mass index (BMI) [Ratio] 24.82 kg/m2 No PCP None QW-Snrxbgy-Nwuupej Work Phone: 09-12-2022 13:32-0500 Body surface area Derived from formula 1.96 m2 No PCP None FD-Hyimcvb-Ffsqyyt Work Phone: 09-12-2022 13:32-0500 Body weight 78.47 kg No PCP None PB-Nntjtvr-Urvpf nd Work Phone: 09-12-2022 13:32-0500 Diastolic blood pressure 77 mm[Hg] No PCP None RJ-Iybvsmd-Ptmzgwd Work Phone: 09-12-2022 13:32-0500 Heart rate 64 /min No PCP None OO-Qgcxtjh-Bitkf nd Work Phone: 09-12-2022 13:32-0500 Systolic blood pressure 149 mm[Hg] No PCP None WQ-Dzqhccq-Iizhurx Work Phone: 05-29-2022 13:59-0500 Body height 177.8 cm No PCP None GN-Mxbkdvf-Qrxoi nd Work Phone: 05-29-2022 13:59-0500 Body mass index (BMI) [Ratio] 25.4 kg/m2 No PCP None LM-Vyaamdp-Iyhnije Work Phone: 05-29-2022 13:59-0500 Body surface area Derived from formula 1.98 m2 No PCP None JQ-Bbcfnqn-Arnfxnm Work Phone: 05-29-2022 13:59-0500 Body weight 80.29 kg No PCP None ZQ-Txwinaw-Exlhw nd Work Phone: 05-29-2022 13:59-0500 Diastolic blood pressure 81 mm[Hg] No PCP None WG-Zmlwxeb-Pejdowe Work Phone: 05-29-2022 13:59-0500 Heart rate 79 /min No PCP None MS-Qfcurgk-Iydts nd Work Phone: 05-29-2022 13:59-0500 Systolic blood pressure 177 mm[Hg] No PCP None CE-Jftktot-Ohcyuvh Work Phone: Encounters Encounter Date Encounter Type Care Provider Facility Start: 09-20-2022 ambulatory MD SHAHAB GIBSON Fa cility:[id number] Start: 09-12-2022 Office outpatient vi sit 25 minutes No PCP None MC-Ajgfaxm-Ovdkpoh Work Phone: Start: 09-12-2022 ambulatory MD SHAHAB GIBSON Fa cility:[id number] Start: 06-26-2022 ambulatory MD SHAHAB GIBSON Fa cility:[id number] Start: 06-25-2022 ambulatory MD SHAHAB GIBSON Fa cility:[id number] Start: 05-29-2022 ambulatory MD SHAHAB GIBSON Fa cility:[id number] Start: 05-29-2022 Office outpatient ne w 45 minutes No PCP None AM-Mqgfqxa-Exshuxc Work Phone: Procedures Date Procedure Procedure Detail Performing Clinician Operation on fracture No PCP None Repair of shoulder No PCP No ne Plan of Treatment Date Care Activity Detail Author Start: 09-20-2022 COLIN, Provider : Shahab Gibson II, Status: Pen, Time: 11:00 AM COLIN Provider: Shahab Gibson II, Status: Pen, Time: 11:00 AM IT-Bdlyigo-Mnnhgcn Work Phone: Payers Date Payer Category Payer Unknown [id number] 1940 Unknown [id number] 1940 Unknown [id number] 1940 Unknown [id number] [id number]. [id number] 1940 Unknown [id number] Medicare [id number] Private Health Insurance [id number] Unknown Social History Date Type Detail Facility Never smoked tobacco Never smoked tobacco KC-Sqtvlxq-Qcixniy Work Phone: History of Present illness Narrative 06-26-2022 Note Date & Type Note Facility 06-26-2022 History of Presen t illness Narrative Patient is here to discuss medication (casodex) . He was seen on 06/26/22. He was given Casodex and superposed to f/u for Lupron. He declines a bx of the prostate. He does not understand why he needs Casodex Most recent PSA was 163 on 05/29. . Prior PSA was 117 in 2020. Never had a bx of the prostate. Normal bone scan at [place] on 03/29. Chronic LUTS sx are mild and stable. Some urgency and frequency. Some hesitancy and weak stream. Denies dysuria. Denies hematuria. Nocturia x1. No medication for LUT'S. ED is chronic. No medication for this. FT-Xxbaxbw-Ncrrrym Work Phone: History of Present illness Narrative Note Date & Type Note Facility History of Present illness Narrative Patient is here to be established for elevated PSA. Most recent PSA was 117 in 2020. Prior PSA was 12. He states at the time he declined to do a biopsy...Bone Scan was negative. Chronic LUTS sx are mild and stable. Some urgency and frequency. Some hesitancy and weak stream. Denies dysuria. Denies hematuria. Nocturia x1. No medication for LUT'S. No hx of kidney stones. ED is chronic. No medication for this. FD-Olqrvbb-Qlbfakb Work Phone: Chief Complaint ELEVATED PSADISCUSS MEDICATION Family History No Family History Records FoundUnknown Family Member Name Dates Details No pertinent family history: Mother, Father(V49.89, Z78.9) Status:Active Unknown Family Member Name Dates Details No pertinent family history: Mother, Father(V49.89, Z78.9) Status:Active Summary Purpose Advance Directives No Advanced Directives Records FoundNo Advanced Directives Records Found Additional Source Comments (unrecognized sect ion and content) No Status Records FoundNo Status Records Found INFORMATION SOURCE (unrecogn ized section and content) DATE CREATED AUTHOR 09/21/2022 [facility] DATE CREATED AUTHOR AUTHOR'S ORGANIZ ATION 09/21/2022 5151tuan FOR RECORDS PERTAINING TO PATIENTS WHO ARE OR HAVE BEEN ENROLLED IN A CHEMICAL DEPENDENCY/SUBSTANCEABUSE PROGRAM, SOME INFORMATION MAY BE OMITTED. This clinical summary was aggregated from multiple sources. Caution should be exercised in using it in the provision of clinical care. This summary normalizes information from multiple sources, and as a consequence, information in this document may materially change the coding, format and clinical context of patient data. In addition, data may be omitted in some cases. CLINICAL DECISIONS SHOULD BE BASED ON THE PRIMARY CLINICAL RECORDS. [facility] [employer] provides no warranty or guarantee of the accuracy or completeness of information in this document.
[2024-12-18 21:28] LABS: Absolute Lymphocyte Count 1.04 X10^3/uL (0.83-4.51); Absolute Neutrophil Count 5.1 X10^3/uL (2.0-7.7); Basophil# 0.05 X10^3/uL; Basophil% 0.7 % (0-1); Eosinophils% 8.1 % (0-5); Hematocrit 42.9 % (40-54); Hemoglobin 14.5 g/dL (13.0-16.5); Lymphocyte # 1.04 X10^3/ul (0.83-4.51); Lymphocyte % 14.1 % (19-41); Mean Corp Hgb Conc 33.8 g/dL (32-36); Mean Corpuscular Hgb 32.4 pg (27.0-32.0); Mean Platelet Vol. 11.8 fl (6.2-12.0); Monocyte# 0.59 X10^3/uL; NRBC Flagged by Analyzer 0 % (0-5); Neutrophil # 5.07 X10^3/uL (2.7-7.7); Neutrophil % 68.8 % (47-70); Platelet Count 141 K/mm3 (150-450); RBC Distribution Width CV 14.4 % (11.6-14.6); RBC Distribution Width SD 50.4 fl (35.1-43.9); Red Blood Count 4.47 M/mm3 (4.6-6.2); White Blood Count 7.4 K/mm3 (4.4-11.0)
--- NOTE | 2024-12-18 21:33 | CM.ED ---
Social Work Reason for visit: Stroke Alert SW spoke with patients while patient was out of the room for testing. stated she and patient have been up since about 3 am, patient became increasingly weak and required assistance with walking, getting in to bed and toileting. stated their children came to the home to help them today. stated it can be hard to wait for all the test results but she understands things dont happen as quick as they do on tv. Emotional support provided. No further needs identified at this time. Aline Sylvester, NEGATIVE NOTCHER, INDIVIDUAL PENSION ADVISER
[2024-12-18 21:38] LABS: International Normalized Ratio 1.3; Prothrombin Time (Protime)PT. 16.7 SECONDS (11.7-14.9)
[2024-12-18 21:39] LABS: Partial Thromboplast Time 33.5 Seconds (24.1-36.2)
[2024-12-18 21:39] LABS: Bedside Glucose 101 mg/dL (74-106)
[2024-12-18 21:47] LABS: Anion Gap 11 (5-15); BUN 17 mg/dL (4-19); BUN/Creat Ratio 25.7 RATIO (10-20); Calcium,Total 9.2 mg/dL (7.6-11.0); Carbon Dioxide 27.3 mmol/L (21.0-32.0); Chloride 96 mmol/L (98-108); Creatinine, Serum 0.65 mg/dL (0.70-1.20); EST Glomerular Filtration Rate 92 (>60); Glucose 99 mg/dL (70-99); Potassium 4.2 mmol/L (3.3-5.1); Sodium Level 134 mmol/L (133-145); Troponin T High Sensitivity 31 ng/L (<=22)
[2024-12-18] MEDS: Clopidogrel Bisulfate 300 MG Tablet 600 MG PO (22:03)
--- NOTE | 2024-12-18 22:10 | RAD_ITS ---
PROCEDURE: CHEST 1 VIEW 12/18/2024 REASON FOR EXAM: NEURO DEFICIT, ACUTE, STROKE SUSPECTED TECHNIQUE: Frontal view of the chest. COMPARISON: Chest radiograph 10/10/2022. FINDINGS: Hardware: None. Heart: Mild cardiomegaly with pulmonary vascular congestion. Lungs: Emphysema with scattered areas of scarring. Increased opacification of the right lower lung zone. Probable trace right pleural effusion. No pneumothorax. The small biapical pulmonary nodules seen on same-day CTA neck are not well-visualized by radiographic imaging. Bones: Degenerative changes are identified within the thoracic spine. RAD/Chest 1 View IMPRESSION: 1. Increased right lower lung zone opacification, which may represent pneumonit is/pneumonia.The small biapical pulmonary nodules seen on same-day CTA neck are not well-visualized by radiographic imaging. 2. Stable mild cardiomegaly. Reading Location: [id number]
[2024-12-18 22:22] LABS: Bacteria 0 SEEN /hpf (None Seen); Mucous, Urine 0 SEEN /hpf (<or=2+); Squamous Epithelial Cells - UA 0 SEEN /hpf (0-5); White Blood Cells 0 SEEN /hpf (0-5)
[2024-12-18 22:51] LABS: Color, Urine Yellow (Yellow); Glucose, Dipstick Normal (Normal); Ketone-Dipstick Negative (Negative); Leukocyte Esterase-Dipstick Negative /ul (Negative); Nitrite-Dipstick Negative (Negative); Occult Blood-Urine 10 /ul (Negative); Protein-Dipstick 100 mg/dl (Negative); Specific Gravity, Urine 1.005 (1.002-1.030); Urine Bilirubin Dipstick Negative (Negative); Urine Clarity Clear (Clear); Urine Urobilinogen Normal (Normal)
[2024-12-18 22:53] LABS: Red Blood Cells-Urine 0-5 SEEN /hpf (0-5)
== END 2024-12-18 22:52 | disposition other institution (70) ==
PROVIDERS: Emergency Provider Emergency Medicine; PCP Family Medicine; Visit Provider Emergency Medicine
DX: I63.02 Cerebral infarction due to thrombosis of basilar artery (principal); G81.94 Hemiplegia, unspecified affecting left nondominant side; I11.0 Hypertensive heart disease with heart failure; I50.32 Chronic diastolic (congestive) heart failure; J44.9 Chronic obstructive pulmonary disease, unspecified; I48.20 Chronic atrial fibrillation, unspecified; R47.1 Dysarthria and anarthria; R29.705 NIHSS score 5; F17.210 Nicotine dependence, cigarettes, uncomplicated; Z79.01 Long term (current) use of anticoagulants; Z79.899 Other long term (current) drug therapy
CPT/HCPCS: 70450; 70496; 70498; 71045; 80048; 81001; 82962; 84484; 85025; 85610; 85730; 87086; 93005; 99285; Q9967; A4216

== ENCOUNTER 2024-12-29 13:55 | Inpatient (IN) | payer MEDICARE, OTHER, SELFPAY ==
[2024-12-29 14:18] VITALS: BP 168/89; PULSE 71; RESP 16; TEMP 36.3; O2SAT 94
[2024-12-29 14:25] VITALS: BP 160/95; O2SAT 90
[2024-12-29 14:44] VITALS: BMI 24.5
--- NOTE | 2024-12-29 21:02 | HP.PCM_ITS ---
HPI - General General Date of Admission: 12/29/24 Date of Service: 12/29/24 Chief Complaint: Here for rehabilitation. HPI Narrative NARESH HOLLIS, is a 84 Male who presents with followin12/18/2024 [facility] weakness. Increasing weakness, walks with walker. Chronic atrial fibrillation, ran out of Eliquis for 1 week, restarted 2 days ago. Woke up at 3:30AM, little bit off, increasing weakness, speech not making sense. Left leg weakness, mild headache. CT head negative, CTA head/neck, floating thrombus basilar artery, right superior cerebellar thrombus, left superior cerebellar thrombus. Chest X-ray right lower lobe opacification. NIHSS 5, no TNK 2/2 timeframe. Transfer to [facility] by helicopter. 12/19/2024 Admit to [facility]. Left facial droop, slurred speech, disorientation. Missed few Eliquis doses. NIHSS 2. Not candidate for IV thrombolysis 2/2 out of window; No thrombectomy 2/2 no LVO. Swallow evaluation, heparin drip, SBP goal < 220. MRI brain, Echo, PT/OT/ST/CW/SW. 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 12/22/2024 MRI brain no contrast showed no acute findings. 12/22/2024 CT head no acute intracranial findings. 12/22/2024 CTA no new large vessel occlusion, previous left basilar artery thrombus no longer seen. 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 LDL 98, A1c 5.2. Chest shows atelectasis. IV Heparin was changed to Eliquis. Hospital course complicated by delirium requiring short course of Seroquel. Urinary retention treated with Flomax. Treated for copd exacerbation, urinary tract infection. 12/29/2024 Admit to TCU with debility, here for rehabilitation, strengthening, prior to discharge home with . [facility] Medical History (Updated 12/29/24 @ 21:[address] Bharath Brown MD) Loss of hearing Wears glasses Wears dentures Anxiety Alcohol use Skin tear Ambulates with cane Arthritis Prostate disease Injury of head and neck Gastric reflux TIA (transient ischemic attack) History of diverticulitis Smoker CPAP (continuous positive airway pressure) dependence On home oxygen therapy Shortness of breath on exertion History of pain when walking History of edema History of echocardiogram History of stress test Cardiology follow-up encounter History of atrial fibrillation Nicotine dependence Essential (primary) hypertension Actinic keratosis of left cheek Actinic keratosis Neoplasm of unspecified behavior of bone, soft tissue, and skin Vision problems GERD (gastroesophageal reflux disease) PROSTATE PROBLEMS Hearing problem Migraines Gastrointestinal problem Glaucoma Anxiety and depression Cataracts, bilateral UTI (urinary tract infection) Back problem Bone fracture Sleep apnea Hypertriglyceridemia Chronic diastolic (congestive) heart failure Chronic atrial fibrillation Alcohol abuse Diverticulosis Severe chronic obstructive pulmonary disease Panic disorder with agoraphobia Hyperlipidemia Generalized anxiety disorder Home Medications ?Medication ?Instructions ?Recorded ?Last Taken ?Type albuterol sulfate 90 mcg/actuation 1 puff IH Q8 PRN SO B 04/25/15 08/22/16 History aerosol inhaler carvedilol 12.5 mg tablet 12.5 mg PO BID.TCU Blood pre ssure 04/05/20 Unknown History carvedilol 25 mg tablet (Coreg) 25 mg PO QAM 04/05/20 Unknown History bimatoprost 0.01 % eye drops 1 drp ophthalmic (eye) QP M 10/17/20 Unknown History calcium citrate 250 mg PO BID 10/17/20 Unkno wn History fluorometholone 0.1 % eye 1 drp ophthalmic (eye) QWEEK 10/17/20 Unknown History drops,suspension fluticasone propionate 50 2 spray intranasal DAILY PRN 10/17/20 Unknown History mcg/actuation nasal Congestion spray,suspension (Children's Flonase Allergy Relief) magnesium oxide 400 mg (241.3 mg 400 mg PO BID dificie ncy 10/17/20 Unknown History magnesium) tablet multivitamin 1 tablet PO DAILY vitamin Unknown History duloxetine 20 mg capsule,delayed 20 mg PO DAILY PRN An xiety 11/24/20 Unknown History release lisinopril 10 mg tablet 10 mg PO DAILY blood pressur e #30 06/13/22 Unknown Rx tabs fluticasone furoate 200 1 inh inhalation QDAY #30 ea 06/18/23 Unknown Rx mcg/actuation blister powder for inhalation (Arnuity Ellipta) ipratropium bromide 0.02 % 0.5 mg (2.5 mL) inhalation Q6H PRN 06/25/23 Unknown Rx solution for inhalation Wheezing #150 mL apixaban 5 mg tablet 5 mg PO BID #60 tabs 5 Unknown Rx albuterol sulfate 2.5 mg/3 mL 2.5 mg inhalation Q6H GA N PRN 12/29/24 Unknown History (0.083 %) solution for nebulization Wheezing apixaban 5 mg tablet (Eliquis) 5 mg PO BID Blood Thinn er 12/29/24 Unknown History atorvastatin 40 mg tablet (Lipitor) 40 mg PO QHS Giuliana sterol 12/29/24 Unknown History cephalexin 500 mg capsule 500 mg PO BID antibiotic Unknown History folic acid 1 mg tablet 1 mg PO DAILY supplement Unknown History lisinopril 5 mg tablet 5 mg PO QHS blood pressure 0 12/29/24 Unknown History mometasone-formoterol HFA 100 2 inh inhalation BID VEHICLE BODY MAKER D 12/29/24 Unknown History mcg-5 mcg/actuation aerosol inhaler (Dulera) nicotine 14 mg/24 hr daily 1 patch transdermal DAILY s moker 12/29/24 Unknown H istory transdermal patch (Nicoderm CQ) tamsulosin 0.4 mg capsule (Flomax) 0.8 mg PO DAILY Pro state 12/29/24 Unknown History thiamine HCl (vitamin B1) 100 mg 100 mg PO DAILY vitam in 12/29/24 Unknown History tablet Allergy/AdvReac Type Severity Reaction Status Date / Time amlodipine (From Norvasc) AdvReac elevated Verified 12/09/23 14:04 bilirubin disopyramide phosphate (From AdvReac Other Verified 12/09/23 14:04 Norpace) metoprolol AdvReac SOB Verified 12/09/23 14:04 Family History Mother Hypertension A-fib Anxiety History of blood transfusion Bowel disease Colon cancer Depression (emotion) Father COPD (chronic obstructive pulmonary disease) Asthma Depression (emotion) Respiratory disease Sister Breast cancer Anxiety Grandfather Alcoholism Surgical History Hx of colonoscopy History of cataract removal with insertion of prosthetic lens History of cardioversion S/P tendon repair H/O cornea transplant H/O repair of left rotator cuff History of umbilical hernia repair History of right inguinal hernia repair Social History (Updated 12/29/24 @ 21:[address] Bharath Brown MD) household members: spouse Smoking Status: Current every day smoker tobacco type: cigarettes alcohol intake: current alcohol intake frequency: 3 or more drinks per day Alcohol type: beer substance use type: does not use caffeine: Yes Type: coffee Number of servings: 2 additional social history: DOES NOT USE ASPIRIN DOES NOT USE IBUPROFEN ROS Constitutional Constitutional: Reports weakness; Denies chills, fever(s) or weight gain ENT HEENT: Denies headache(s), nasal congestion or nasal discharge Cardiovascular Cardiovascular: Denies chest pain or palpitations Respiratory/Chest Respiratory/Chest: Denies cough, excessive phlegm production or shortness of breath with exertion Gastrointestinal Gastrointestinal: Denies abdominal pain, nausea or vomiting Genitourinary Genitourinary: Denies dysuria Musculoskeletal Musculoskeletal: Denies joint pain or joint swelling Integumentary Integumentary: Denies rash or wounds Neurologic Neurologic: Denies focal weakness, numbness or tingling Psychiatric Psychiatric: Denies anxiety, auditory hallucinations, depression, homicidal ideation or suicidal ideation Vital Signs Vital Signs Vital Signs: 12/29/24 14:18 12/29/24 14:25 12/29/24 14:37 Temperature 97.4 F L Temperature Source Temporal Pulse Rate 71 Pulse Rhythm Pulse Strength Normal (2+) Respiratory Rate 16 Respiratory Effort Respiratory Depth Respiratory Pattern Blood Pressure 168/89 H 160/95 H Blood Pressure Mean 115 116 Blood Pressure Source Monitor Monitor Blood Pressure Position Semi-Fowlers Semi-Fowlers Blood Pressure Location Left Arm Left Arm Pulse Ox 94 90 Oxygen Delivery Method Nasal Cannula Nasal Cannula Oxygen Flow Rate (L/min) 2 2 12/29/24 14:48 Temperature Temperature Source Pulse Rate Pulse Rhythm Regular Pulse Strength Normal (2+) Respiratory Rate Respiratory Effort Normal Non-Labored Respiratory Depth Normal Respiratory Pattern Normal Blood Pressure Blood Pressure Mean Blood Pressure Source Blood Pressure Position Blood Pressure Location Pulse Ox Oxygen Delivery Method Nasal Cannula Oxygen Flow Rate (L/min) 2 Weight Weight: 75.495 kg Body Mass Index (BMI) 24.5 Physical Exam Const alert General Appearance: cooperative HEENT normocephalic Eyes PERRL and EOMs intact bilaterally Neck supple, no JVD and no carotid bruits Resp normal respiratory effort, normal air movement and clear to auscultation bilaterally Cardio regular rate and regular rhythm GI normal to inspection, nondistended, normoactive bowel sounds, non-tender and non-distended Extremity normal capillary refill General Extremity: Negative for edema Skin no rashes or lesions noted General Skin Exam: no breakdown Neuro moves all extremities Psych affect normal Appearance: appropriate Assessment & Plan Assessment/Plan (1) Debility: (2) TIA (transient ischemic attack): (3) Encephalopathy: (4) Basilar artery thrombosis: (5) COPD exacerbation: (6) UTI (urinary tract infection): (7) Atrial fibrillation: QUALIFIERS: Atrial fibrillation type: persistent Qualified Code(s): I48.1 - Persistent atrial fibrillation (8) Glaucoma: (9) Allergic rhinitis: (10) Hypomagnesemia: (11) Anxiety: (12) Essential (primary) hypertension: (13) Alcohol use: (14) Tobacco abuse: PLAN: Plan 84 year old male with below past medical history 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 * Debility - PT/OT. * Dysphagia - ST. * Pain - Tylenol 1000mg q6 prn pain (1-10). * Bowel - senna/colace 1 tablet bid, Magnesium citrate 300mL daily prn. * Adult immunization - Administer pneumonia vaccine, covid vaccine, flu vaccine as appropriate. * DVT prophylaxis - Eliquis. * COPD - Fluticasone/Salmeterol 232-14 1 puff bid, Albuterol 2.5mg q6 prn. * Atrial fibrillation - Eliquis 5mg bid. * Hyperlipidemia - Atorvastatin 40mg qhs. * UTI - Keflex 500mg bid thru 12/31/2024. * Alcohol abuse - Thiamine 100mg daily, Folic acid 1mg daily. * Tobacco abuse - Nicotine 14mg td daily. * Glaucoma - Latanoprost 1gtt ou qhs. * Hypertension - Lisinopril 10mg am, 5mg qhs. * Nutrition - MVI 1 tablet daily. * BPH - Tamsulosin 0,8mg daily.
[2024-12-29 21:30] VITALS: PULSE 74; RESP 20; O2SAT 95
[2024-12-29] MEDS: Albuterol 2.5 MG/3 ML VIAL.NEB. INHALATION (21:35)
[2024-12-29] MEDS: Fluticasone/Salmeterol 232-14 Inhaler 1 PUFF INHALATION (22:12)
[2024-12-29] MEDS: APIXABAN 5 MG TABLET PO (22:12)
[2024-12-29] MEDS: Latanoprost 0.005% 1 Bottle 1 DRP EACH EYE (22:14)
[2024-12-29] MEDS: Senna/Docusate Sodium 1 Tablet PO (22:14)
[2024-12-30 05:49] LABS: Hematocrit 37.9 % (40-54); Hemoglobin 12.3 g/dL (13.0-16.5); Immature Granulocytes Count 0.040 X10^3/uL (0.0-0.0); Mean Corp Hgb Conc 32.5 g/dL (32-36); Mean Corpuscular Volume 100.5 fL (80-94); Mean Platelet Vol. 11.7 fl (6.2-12.0); NRBC Flagged by Analyzer 0 % (0-5); Platelet Count 165 K/mm3 (150-450); RBC Distribution Width CV 15.0 % (11.6-14.6); RBC Distribution Width SD 55.9 fl (35.1-43.9); Red Blood Count 3.77 M/mm3 (4.6-6.2); White Blood Count 7.1 K/mm3 (4.4-11.0)
[2024-12-30 06:38] LABS: Anion Gap 9 (5-15); BUN 15 mg/dL (4-19); BUN/Creat Ratio 20.0 RATIO (10-20); Calcium,Total 8.6 mg/dL (7.6-11.0); Carbon Dioxide 29.6 mmol/L (21.0-32.0); Chloride 102 mmol/L (98-108); Estimated Creatinine Clearance 67.51 ml/min (50-250); Glucose 90 mg/dL (70-99); Potassium 4.5 mmol/L (3.3-5.1)
[2024-12-30 08:48] VITALS: BP 141/73; PULSE 72; RESP 18; TEMP 36.6; O2SAT 92
[2024-12-30] MEDS: APIXABAN 5 MG TABLET PO ×2 (08:51→21:34)
[2024-12-30] MEDS: Thiamine Hydrochloride 100 MG Tablet PO (08:52)
[2024-12-30] MEDS: Senna/Docusate Sodium 1 Tablet PO ×2 (08:52→21:35)
[2024-12-30] MEDS: Fluticasone/Salmeterol 232-14 Inhaler 1 PUFF INHALATION ×2 (08:53→21:34)
[2024-12-30] MEDS: Tuberculin,Purif.prot.deriv. 50 TU/ML Vial 0.1 ML ID (09:08)
[2024-12-30 10:00] VITALS: PULSE 72; RESP 18; O2SAT 99
--- NOTE | 2024-12-30 11:58 | NURSING ---
Court Recording Monitor Note; Activity Asset: Jerome Means is independent in his choice of daily activities. He also like to be called Rudy. His will visits and bring him items he may need or want. He will watch tv and enjoys [employer]. Staff will remind him of weekly activities and respect his right to say no.
--- NOTE | 2024-12-30 14:33 | CASEMGMT ---
Social Work TCU admit note: SW met w/pt to complete initial assessment. Introduced self, role. Contacts verified. Pt confirmed code status as full code. Educated pt to Medicare benefit, and that there will be a care plan meeting next week. Pt has not completed LW/POA documents. Pt's goal for discharge is to return home with spouse, is open to home health and possibly and [facility]. SW will continue to follow. MALISSA Rogers
--- NOTE | 2024-12-30 14:49 | PHA.CONS_ITS ---
Documented by User: Sherry Silva 12/30/24 15:19 TCU RX Drug Regimen Review Subjective/Objective Subjective/Objective Subjective: TCU Admission. 84 YOM presented to the ER with weakness. Hospitalized for TIA 2/2 left basilar artery thrombus, complicated by encephalopathy, copd exacerbation, urinary tract infection. Admitted to TCU with debility for strengthening and rehabilitation. Objective: Allergies amlodipine (From [employer]) Adverse Reaction (Verified 12/09/23 14:04) elevated bilirubin disopyramide phosphate (From [employer]) Adverse Reaction (Verified 12/09/23 14:04) Other STOOL TURNS WHITE AND BILIRUBIN WENT WAY UP metoprolol Adverse Reaction (Verified 12/09/23 14:04) SOB Current Medications Generic Name Dose Route Start Last Admin Trade Name Freq PRN Reason Stop Dose Admin Albuterol Sulfate 2.5 mg 12/29/24 14:26 12/29/24 21:35 Albuterol 2.5 Mg/3 Ml Vial.Neb. INHALATION 2.5 mg Q6H PRN PRN Administration Wheezing Apixaban 5 mg 12/29/24 22:00 12/30/24 08:51 Apixaban 5 Mg Tablet PO 5 mg BID BENJAMIN Administration Atorvastatin Calcium 40 mg 12/29/24 22:00 12/29/24 22:14 Atorvastatin Calcium 40 Mg Tablet PO 40 mg QHS BENJAMIN Administration Carvedilol 12.5 mg 12/29/24 17:00 12/30/24 08:52 Carvedilol 12.5 Mg Tablet PO 12.5 mg BIDCM BENJAMIN Administration Cephalexin 500 mg 12/29/24 22:00 12/30/24 08:51 Cephalexin 500 Mg Capsule PO 12/31/24 22:01 500 mg BID BENJAMIN Administration Folic Acid 1 mg 12/30/24 08:00 12/30/24 08:51 Folic Acid 1 Mg Tablet PO 1 mg BREAKFAST BENJAMIN Administration Latanoprost 1 drp 12/29/24 22:00 12/29/24 22:14 Latanoprost 0.005% 1 Bottle EACH EYE 1 drp QHS BENJAMIN Administration Lisinopril 5 mg 12/29/24 22:00 12/29/24 22:16 Lisinopril 5 Mg Tablet PO 5 mg QHS BENJAMIN Administration Protocol Lisinopril 10 mg 12/30/24 10:00 12/30/24 08:51 Lisinopril 10 Mg Tablet PO 10 mg DAILY BENJAMIN Administration Protocol Magnesium Citrate 300 ml 12/29/24 14:42 Magnesium Citrate 300 Ml PO X1 PRN Constipation Multivitamins 1 tablet 12/30/24 08:00 12/30/24 08:52 Multivitamins,Therapeutic Tablet PO 1 tablet DAILYCM BENJAMIN Administration Nicotine 14 mg 12/30/24 10:00 12/30/24 08:56 Nicotine 14 Mg Patch TD 01/13/25 10:01 Not Given DAILY BENJAMIN Nutritional Formula (Lactose Free) 120 ml 12/30/24 17:45 Ensure Plus High Protein 120 Ml Liquid PO TIDCM BENJAIMN Fluticasone/Salmeterol 1 puff 12/29/24 22:00 12/30/24 08:53 Fluticasone/Salmeterol 232-14 Inhaler INHALATION 1 puff Q12 BENJAMIN Administration Senna/Docusate Sodium 1 tablet 12/29/24 22:00 12/30/24 08:52 Senna/Docusate Sodium 1 Tablet PO 1 tablet BID BENJAMIN Administration Tamsulosin HCl 0.8 mg 12/30/24 10:00 12/30/24 08:52 Tamsulosin Hcl 0.4 Mg Capsule PO 0.8 mg DAILY BENJAMIN Administration Thiamine HCl 100 mg 12/30/24 10:00 12/30/24 08:52 Thiamine Hydrochloride 100 Mg Tablet PO 100 mg DAILY BENJAMIN Administration Tuberculin PPD 0.1 ml 01/06/25 10:00 Tuberculin,Purif.Prot.Deriv. 50 Tu/Ml Vial ID 01/06/25 10:01 X1 ONE Problem List (Updated 12/29/24 @ 21:[address] Bharath Brown MD) Alcohol use (Acute) Essential (primary) hypertension (Acute) Anxiety (Acute) Hypomagnesemia (Acute) Allergic rhinitis (Acute) Glaucoma (Acute) UTI (urinary tract infection) (Acute) COPD exacerbation (Chronic) Debility (Acute) TIA (transient ischemic attack) (Acute) Tobacco abuse (Acute) Vital Signs Temp Pulse Resp BP Pulse Ox O2 Del Method O2 Flow Rate 97.8 F 72 18 141/73 H 92 Room Air 2 12/30/24 08:48 12/30/24 08:48 12/30/24 08:48 12/30/24 08:48 12/30/24 08:48 12/30/24 08:48 12/30/24 11:17 Oxygen Flow Rate (L/min) 2 Oxygen Delivery Method Room Air Weight: 75.495 kg Body Mass Index (BMI) 24.5 Sodium 140 mmol/L (133-145) 12/30/24 05:22 Potassium 4.5 mmol/L (3.3-5.1) 12/30/24 05:22 Chloride 102 mmol/L (98-108) 12/30/24 05:22 Carbon Dioxide 29.6 mmol/L (21.0-32.0) 12/30/24 05:22 Anion Gap 9 (5-15) 12/30/24 05:22 BUN 15 mg/dL (4-19) 12/30/24 05:22 Creatinine 0.76 mg/dL (0.70-1.20) 12/30/24 05:22 Est GFR (MDRD) Non-Af 88 (>60) 12/30/24 05:22 BUN/Creatinine Ratio 20.0 RATIO (10-20) 12/30/24 05:22 Glucose 90 mg/dL (70-99) 12/30/24 05:22 Assessment/Plan: 1. Bowel: senna/docusate 1T PO BID and magnesium citrate 300mL PO daily PRN constipation. No PRN doses given. Please continue to monitor for constipation and PRN usage. Last documented bowel movement was 12/29/24. 2. Atrial fibrillation/hypertension: apixaban 5mg PO BID, carvedilol 25mg PO BIDCM, lisinopril 10mg PO daily and 5mg QHS. Please continue to monitor S/S of bleeding, hemoglobin (last 12.3g/dL), HR (range 71-74), BP (range 141-160/73-95), potassium (last 4.5mmol/L), cough and renal function. 3. UTI: cephalexin 500mg PO BID thru 12/31/24. Please continue to monitor for S/S of UTI, renal function and diarrhea. 4. Hyperlipidemia: atorvastatin 40mg PO QHS. Please consider ordering a lipid p genevieve as the last panel was from 2019. Thanks. Please continue to monitor for muscle pain. 5. COPD: fluticasone/salmeterol 232/14mcg 1 puff BID and albuterol 2.5mg inhalation Q6 PRN wheezing. No PRN doses given. Please continue to monitor for S/S of thrush, HR (range 71-74), SOB. Please rinse mouth with water and spit to prevent thrush. 6. Glaucoma: latanoprost 0.05% 1gtt OU QHS. Please continue to monitor for S/S of glaucoma and dry eyes. 7. BPH: tamsulosin 0.8mg PO daily. Please continue to monitor for S/S of BPH and BP. 8. Alcohol and tobacco abuse/nutrition: thiamine 100mg PO daily, folic acid 1mg PO daily, multivitamin 1T PO daily and nicotine patch 14mg TD daily. Please continue to monitor for nicotine cravings, HR, nightmares. Assessment/Plan for indications treated with psychotropic medications: Resident is not prescribed scheduled or prn psychotropic medications at the time of this drug regimen review. Medical chart and medication regimen reviewed. The following medication irregularities or issues were identified: 1. Atorvastatin 40mg PO QHS. Please consider ordering a lipid panel as the last panel was from 2019. Thanks. Date Date of Note: 12/30/24 Documented by User: Dr. Bharath Brown MD 12/30/24 17:04 TCU RX Drug Regimen Review Provider Comments Provider responsibility Provider Comments to Recommendations by Pharmacy Agree
[2024-12-30 17:13] VITALS: BP 119/67; PULSE 74
[2024-12-30] MEDS: Ensure Plus High Protein 120 ML LIQUID PO (17:14)
[2024-12-30 21:35] VITALS: PULSE 76; RESP 18; O2SAT 98
[2024-12-30] MEDS: Albuterol 2.5 MG/3 ML VIAL.NEB. INHALATION (21:35)
[2024-12-30] MEDS: Latanoprost 0.005% 1 Bottle 1 DRP EACH EYE (21:36)
[2024-12-31 06:39] LABS: Cholesterol 111 mg/dL (<=200); Low Density Lipoprotein Calc. 56 mg/dL; Triglycerides 93 mg/dL; Very Low Density Lipoprotein 19 mg/dL (5-40); cholesterol:hdl ratio screen 3.02
[2024-12-31 08:33] VITALS: BP 107/61; PULSE 82; RESP 18; TEMP 37.3; O2SAT 92
[2024-12-31] MEDS: Fluticasone/Salmeterol 232-14 Inhaler 1 PUFF INHALATION ×2 (08:36→21:20)
[2024-12-31] MEDS: Ensure Plus High Protein 120 ML LIQUID PO ×3 (08:37→17:08)
[2024-12-31] MEDS: Senna/Docusate Sodium 1 Tablet PO ×2 (08:38→21:21)
[2024-12-31] MEDS: APIXABAN 5 MG TABLET PO ×2 (08:38→21:20)
[2024-12-31] MEDS: Thiamine Hydrochloride 100 MG Tablet PO (08:39)
[2024-12-31 12:45] VITALS: O2SAT 94
[2024-12-31 15:05] LABS: Mucous, Urine 0 SEEN /hpf (<or=2+); Squamous Epithelial Cells - UA 0 SEEN /hpf (0-5)
--- NOTE | 2024-12-31 15:25 | NURSING ---
Updated resident about appt w/ Saida Milligan AIR VALVE MECHANIC January 13 at 0815 for lung nodules. Updated via phone, also let her know a repeat UA and culture are pending. She was appreciate of update.
[2024-12-31 16:27] LABS: Color, Urine Straw (Yellow); Glucose, Dipstick Normal (Normal); Ketone-Dipstick Negative (Negative); Leukocyte Esterase-Dipstick Negative /ul (Negative); Nitrite-Dipstick Negative (Negative); Occult Blood-Urine Negative /ul (Negative); Protein-Dipstick 30 mg/dl (Negative); Specific Gravity, Urine 1.015 (1.002-1.030); Urine Bilirubin Dipstick Negative (Negative)
[2024-12-31 17:38] LABS: Red Blood Cells-Urine 0-5 SEEN /hpf (0-5)
[2024-12-31 18:51] VITALS: PULSE 69; RESP 24
[2024-12-31] MEDS: Albuterol 2.5 MG/3 ML VIAL.NEB. INHALATION (18:51)
[2024-12-31 20:00] VITALS: PULSE 66; O2SAT 100
[2024-12-31 21:16] VITALS: BP 132/61; PULSE 69
[2024-12-31] MEDS: Latanoprost 0.005% 1 Bottle 1 DRP EACH EYE (21:21)
[2025-01-01 05:13] VITALS: PULSE 74; O2SAT 97
[2025-01-01] MEDS: Ensure Plus High Protein 120 ML LIQUID PO ×3 (08:37→17:21)
[2025-01-01] MEDS: APIXABAN 5 MG TABLET PO ×2 (08:38→23:18)
[2025-01-01] MEDS: Senna/Docusate Sodium 1 Tablet PO ×2 (08:39→23:19)
[2025-01-01] MEDS: Thiamine Hydrochloride 100 MG Tablet PO (08:39)
[2025-01-01] MEDS: Fluticasone/Salmeterol 232-14 Inhaler 1 PUFF INHALATION ×2 (08:39→23:18)
[2025-01-01 08:49] VITALS: O2SAT 97
[2025-01-01 10:55] VITALS: BP 110/58; PULSE 60; RESP 18; TEMP 36.3; O2SAT 98
[2025-01-01] MEDS: Albuterol 2.5 MG/3 ML VIAL.NEB. INHALATION ×2 (14:10→23:04)
[2025-01-01 14:11] VITALS: PULSE 75; RESP 20
[2025-01-01 23:05] VITALS: PULSE 72; RESP 20
[2025-01-01] MEDS: Latanoprost 0.005% 1 Bottle 1 DRP EACH EYE (23:19)
[2025-01-02] VITALS (7 sets, daily range): BP systolic 110–154; BP diastolic 53–73; PULSE 66–86; RESP 16–20; TEMP 36.2; O2SAT 92–96
--- NOTE | 2025-01-02 04:33 | NURSING ---
THIS NURSE APPROACHED PATIENT DURING MEDICATION PASS TO GIVE PATIENT MEDS AND GET READY FOR BED. PATIENT SEEMED TO BE HAVING TROUBLE BREATHING, THIS NURSE OBTAINED A PULSE OX READING OF 85%. THIS NURSE WENT TO CHECK PATIENTS OXYGEN AND IF BEING ADMINISTERED CORRECTLY, THIS NURSE NOTICED PATIENT WAS WITHOUT O2. THIS NURSE PROCEEDED TO REAPPLY PATIENTS O2 WITH A SUCCESS READING OF 92%. PATIENT STILL SHORT OF BREATH ASKED FOR A BREATHING TREATMENT, THIS NURSE CALLED RESPIRATORY AND OBTAINED THE TREATMENT. PATIENT THEN EXPLAINED TO THIS NURSE HE HAS NOT BEEN ON HIS 2L OF O2 ALL DAY TODAY THIS NURSE NOTIFIED RN IMMEDIATELY. PATIENTS O2 ENDED AT 95% O2 WITH 2L OF O2 BLED THROUGH C-PAP. WILL CONTINUE TO MONITOR.
[2025-01-02] MEDS: APIXABAN 5 MG TABLET PO ×2 (09:56)
[2025-01-02] MEDS: Thiamine Hydrochloride 100 MG Tablet PO (09:56)
[2025-01-02] MEDS: Senna/Docusate Sodium 1 Tablet PO ×2 (09:56→20:05)
[2025-01-02] MEDS: Fluticasone/Salmeterol 232-14 Inhaler 1 PUFF INHALATION ×2 (09:57→20:05)
[2025-01-02] MEDS: Ensure Plus High Protein 120 ML LIQUID PO ×3 (09:59→17:09)
[2025-01-02] MEDS: Albuterol 2.5 MG/3 ML VIAL.NEB. INHALATION (15:13)
--- NOTE | 2025-01-02 15:25 | NURSING ---
pt called out for aerosal d/t SOB after working with therapy, family states pt takes duonebs BID scheduled & PRN albuteral Q4 hr PRN. respiratory aware.
[2025-01-02] MEDS: Latanoprost 0.005% 1 Bottle 1 DRP EACH EYE (20:04)
[2025-01-03 06:55] VITALS: PULSE 68; RESP 20; O2SAT 94
[2025-01-03 09:55] VITALS: BP 108/64; PULSE 74; RESP 18; TEMP 36.4; O2SAT 95
[2025-01-03] MEDS: Senna/Docusate Sodium 1 Tablet PO (09:57)
[2025-01-03] MEDS: Thiamine Hydrochloride 100 MG Tablet PO (09:57)
[2025-01-03] MEDS: APIXABAN 5 MG TABLET PO ×2 (09:57→21:24)
[2025-01-03] MEDS: Fluticasone/Salmeterol 232-14 Inhaler 1 PUFF INHALATION ×2 (09:58→21:27)
[2025-01-03] MEDS: Ensure Plus High Protein 120 ML LIQUID PO ×3 (09:59→17:21)
[2025-01-03 10:36] VITALS: PULSE 74; RESP 16
[2025-01-03 17:20] VITALS: BP 138/75; PULSE 67
[2025-01-03 19:29] VITALS: PULSE 72; RESP 18
[2025-01-03] MEDS: Latanoprost 0.005% 1 Bottle 1 DRP EACH EYE (21:27)
--- NOTE | 2025-01-04 08:52 | NURSING ---
Called PCP, they only have one pneumonia vaccine on file from 2017. Asked resident if he'd want another if due for one, he declined. Also offered covid vaccine and VIS provided,he declines.
[2025-01-04 09:13] VITALS: BP 129/70; PULSE 81; RESP 18; TEMP 36.4; O2SAT 94
[2025-01-04] MEDS: Ensure Plus High Protein 120 ML LIQUID PO ×3 (09:15→16:34)
[2025-01-04] MEDS: Senna/Docusate Sodium 1 Tablet PO ×2 (09:17→20:44)
[2025-01-04] MEDS: APIXABAN 5 MG TABLET PO ×2 (09:17→20:43)
[2025-01-04] MEDS: Thiamine Hydrochloride 100 MG Tablet PO (09:18)
[2025-01-04] MEDS: Fluticasone/Salmeterol 232-14 Inhaler 1 PUFF INHALATION ×2 (09:18→20:48)
--- NOTE | 2025-01-04 12:02 | NURSING ---
Pt up to bathroom and still not able to void on own or an appropriate amount, 3rd bladder scan showed 452ml, burrell placed at this time 01/04 1145
[2025-01-04 20:05] VITALS: PULSE 72; RESP 26; O2SAT 98
[2025-01-04] MEDS: Latanoprost 0.005% 1 Bottle 1 DRP EACH EYE (20:47)
[2025-01-05 03:45] VITALS: O2SAT 94
[2025-01-05 08:17] VITALS: BP 118/58; PULSE 76; RESP 17; TEMP 36.6; O2SAT 92
[2025-01-05] MEDS: Ensure Plus High Protein 120 ML LIQUID PO ×3 (08:19→17:27)
[2025-01-05] MEDS: Fluticasone/Salmeterol 232-14 Inhaler 1 PUFF INHALATION ×2 (08:20→20:18)
[2025-01-05] MEDS: APIXABAN 5 MG TABLET PO ×2 (08:20→20:20)
[2025-01-05] MEDS: Thiamine Hydrochloride 100 MG Tablet PO (08:21)
[2025-01-05] MEDS: Senna/Docusate Sodium 1 Tablet PO ×2 (08:21→20:19)
--- NOTE | 2025-01-05 08:55 | NURSING ---
Bowling Ball Engraver Note; MDS for 01/05/2025 Complete
[2025-01-05 09:50] VITALS: BMI 24.9
[2025-01-05 10:00] VITALS: PULSE 65; RESP 17
--- NOTE | 2025-01-05 10:41 | CASEMGMT ---
Social Work SW completed BIMS (03/22) and PHQ-2 () for MDS assessment. Mary Kraus STRUCTURAL TEST ENGINEER COAL MINE INSPECTOR
[2025-01-05 10:42] VITALS: O2SAT 95
[2025-01-05 16:00] VITALS: BP 135/86; PULSE 71; RESP 17; O2SAT 91
[2025-01-05 20:06] VITALS: PULSE 85; RESP 20
[2025-01-05] MEDS: Latanoprost 0.005% 1 Bottle 1 DRP EACH EYE (20:20)
[2025-01-06] VITALS (7 sets, daily range): BP systolic 102–130; BP diastolic 46–70; PULSE 77–90; RESP 17–20; TEMP 36.6–37.1; O2SAT 90–100
[2025-01-06 06:07] LABS: Hematocrit 34.3 % (40-54); Hemoglobin 11.3 g/dL (13.0-16.5); Immature Granulocytes Count 0.020 X10^3/uL (0.0-0.0); Mean Corp Hgb Conc 32.9 g/dL (32-36); Mean Corpuscular Volume 97.2 fL (80-94); Mean Platelet Vol. 12.1 fl (6.2-12.0); NRBC Flagged by Analyzer 0 % (0-5); Platelet Count 149 K/mm3 (150-450); RBC Distribution Width CV 15.3 % (11.6-14.6); RBC Distribution Width SD 54.2 fl (35.1-43.9); Red Blood Count 3.53 M/mm3 (4.6-6.2); White Blood Count 6.5 K/mm3 (4.4-11.0)
[2025-01-06 06:32] LABS: Anion Gap 8 (5-15); BUN 17 mg/dL (4-19); BUN/Creat Ratio 23.5 RATIO (10-20); Calcium,Total 8.7 mg/dL (7.6-11.0); Carbon Dioxide 27.0 mmol/L (21.0-32.0); Chloride 101 mmol/L (98-108); Estimated Creatinine Clearance 67.51 ml/min (50-250); Glucose 83 mg/dL (70-99); Potassium 4.6 mmol/L (3.3-5.1)
[2025-01-06] MEDS: Ensure Plus High Protein 120 ML LIQUID PO ×3 (08:41→17:17)
[2025-01-06] MEDS: APIXABAN 5 MG TABLET PO ×2 (08:42→20:57)
[2025-01-06] MEDS: Fluticasone/Salmeterol 232-14 Inhaler 1 PUFF INHALATION ×2 (08:42→20:56)
[2025-01-06] MEDS: Senna/Docusate Sodium 1 Tablet PO ×2 (08:43→20:57)
[2025-01-06] MEDS: Tuberculin,Purif.prot.deriv. 50 TU/ML Vial 0.1 ML ID (08:43)
[2025-01-06] MEDS: Thiamine Hydrochloride 100 MG Tablet PO (08:43)
--- NOTE | 2025-01-06 13:18 | CASEMGMT ---
Social Work IDT met with patient, and multiple family members for care plan meeting. Discussed patient's progress in PT/OT/ST/SN/RDN. Educated to Medicare benefit. Provided pt/family with written communication of insurance process and copay coverage during stay. ST working with pt on cognition, swallowing and diet. Recommending pt get assistance with IADLs and remain with pt for safety at DC. Pt has new burrell and continuous O2. Pt lives in split-level with . Pt's goal is to return home at [facility]. SW discussed having family add a second hand rail to the steps. Dtr requested resources for life alert. Pt provided. SW will continue to follow for DC planning. Mary Kraus SWEATER OPERATOR CUT OFF MACHINE HELPER
--- NOTE | 2025-01-06 17:15 | NURSING ---
pt was resting with 2L of O2 instead of his cpap
[2025-01-06] MEDS: Latanoprost 0.005% 1 Bottle 1 DRP EACH EYE (20:56)
[2025-01-07 06:06] LABS: Hematocrit 34.5 % (40-54); Hemoglobin 11.4 g/dL (13.0-16.5)
[2025-01-07] MEDS: Ensure Plus High Protein 120 ML LIQUID PO ×3 (08:05→17:38)
[2025-01-07] MEDS: Senna/Docusate Sodium 1 Tablet PO ×2 (08:06→22:32)
[2025-01-07] MEDS: Fluticasone/Salmeterol 232-14 Inhaler 1 PUFF INHALATION ×2 (08:06→22:32)
[2025-01-07] MEDS: Thiamine Hydrochloride 100 MG Tablet PO (08:06)
[2025-01-07] MEDS: APIXABAN 5 MG TABLET PO ×2 (08:06→22:32)
[2025-01-07 08:18] VITALS: BP 109/55; PULSE 97; RESP 18; TEMP 36.5; O2SAT 90
[2025-01-07 10:38] VITALS: PULSE 88; RESP 20
[2025-01-07 19:59] VITALS: PULSE 87; RESP 18
[2025-01-07 22:28] VITALS: BP 110/62; PULSE 76; RESP 16; TEMP 36.9; O2SAT 94
[2025-01-07] MEDS: Latanoprost 0.005% 1 Bottle 1 DRP EACH EYE (22:34)
[2025-01-08 05:43] VITALS: BP 125/80; PULSE 79; RESP 18; TEMP 36.3; O2SAT 96
[2025-01-08 07:10] VITALS: PULSE 75; RESP 22; O2SAT 94
[2025-01-08 07:57] VITALS: BP 139/70; PULSE 76; RESP 18; TEMP 36.5; O2SAT 98
[2025-01-08] MEDS: APIXABAN 5 MG TABLET PO ×2 (08:00→20:35)
[2025-01-08] MEDS: Senna/Docusate Sodium 1 Tablet PO ×2 (08:00→20:35)
[2025-01-08] MEDS: Thiamine Hydrochloride 100 MG Tablet PO (08:01)
[2025-01-08] MEDS: Fluticasone/Salmeterol 232-14 Inhaler 1 PUFF INHALATION ×2 (08:01→20:34)
[2025-01-08] MEDS: Ensure Plus High Protein 120 ML LIQUID PO ×3 (08:05→16:40)
[2025-01-08 15:11] VITALS: PULSE 76; RESP 20; O2SAT 98
[2025-01-08] MEDS: Albuterol 2.5 MG/3 ML VIAL.NEB. INHALATION (15:11)
[2025-01-08 19:50] VITALS: PULSE 78; RESP 18
[2025-01-08 20:32] VITALS: BP 131/65; PULSE 74
[2025-01-08] MEDS: Latanoprost 0.005% 1 Bottle 1 DRP EACH EYE (20:34)
[2025-01-09 07:28] VITALS: PULSE 73; RESP 20; O2SAT 97
[2025-01-09] MEDS: Fluticasone/Salmeterol 232-14 Inhaler 1 PUFF INHALATION ×2 (08:16→20:46)
[2025-01-09] MEDS: Ensure Plus High Protein 120 ML LIQUID PO ×3 (08:16→17:03)
[2025-01-09] MEDS: APIXABAN 5 MG TABLET PO ×2 (08:16→20:44)
[2025-01-09] MEDS: Senna/Docusate Sodium 1 Tablet PO ×2 (08:16→20:45)
[2025-01-09] MEDS: Thiamine Hydrochloride 100 MG Tablet PO (08:16)
[2025-01-09 08:19] VITALS: BP 116/76; PULSE 85; RESP 17; TEMP 36.4; O2SAT 96
[2025-01-09 17:08] VITALS: BP 119/64; PULSE 74
[2025-01-09 18:44] VITALS: PULSE 84; RESP 20
[2025-01-09 20:43] VITALS: BP 112/66; PULSE 76
[2025-01-09] MEDS: Latanoprost 0.005% 1 Bottle 1 DRP EACH EYE (20:46)
[2025-01-10 07:06] VITALS: PULSE 82; RESP 18; O2SAT 97
[2025-01-10] MEDS: Ensure Plus High Protein 120 ML LIQUID PO ×3 (08:09→17:39)
[2025-01-10] MEDS: Thiamine Hydrochloride 100 MG Tablet PO (08:09)
[2025-01-10] MEDS: Senna/Docusate Sodium 1 Tablet PO ×2 (08:09→20:00)
[2025-01-10] MEDS: APIXABAN 5 MG TABLET PO ×2 (08:09→20:00)
[2025-01-10] MEDS: Fluticasone/Salmeterol 232-14 Inhaler 1 PUFF INHALATION ×2 (08:09→19:59)
[2025-01-10 08:14] VITALS: BP 132/77; PULSE 80; RESP 18; TEMP 36.3; O2SAT 100
[2025-01-10 17:42] VITALS: BP 120/69; PULSE 76
[2025-01-10 19:45] VITALS: PULSE 98; RESP 18; O2SAT 100
[2025-01-10] MEDS: Latanoprost 0.005% 1 Bottle 1 DRP EACH EYE (19:59)
[2025-01-11 08:32] VITALS: PULSE 81; RESP 17
[2025-01-11] MEDS: Thiamine Hydrochloride 100 MG Tablet PO (08:35)
[2025-01-11] MEDS: Ensure Plus High Protein 120 ML LIQUID PO ×3 (08:35→17:26)
[2025-01-11] MEDS: APIXABAN 5 MG TABLET PO ×2 (08:35→21:54)
[2025-01-11] MEDS: Fluticasone/Salmeterol 232-14 Inhaler 1 PUFF INHALATION ×2 (08:36→21:54)
[2025-01-11] MEDS: Senna/Docusate Sodium 1 Tablet PO ×2 (08:38→21:54)
[2025-01-11 10:14] VITALS: BP 100/58; PULSE 72; RESP 14; TEMP 36.6; O2SAT 93
[2025-01-11 11:52] VITALS: O2SAT 96
--- NOTE | 2025-01-11 13:27 | MDS.RN ---
Information for the MDS was obtained from review of the clinical record, interview of resident, staff, and direct observation of resident?s care.
[2025-01-11 19:40] VITALS: PULSE 76; RESP 22; O2SAT 98
[2025-01-11] MEDS: Latanoprost 0.005% 1 Bottle 1 DRP EACH EYE (21:54)
[2025-01-11 23:00] VITALS: O2SAT 98
[2025-01-12 07:45] VITALS: PULSE 76; RESP 20; O2SAT 99
[2025-01-12 08:47] VITALS: BP 127/62; PULSE 76; RESP 17; TEMP 36.3; O2SAT 91
[2025-01-12] MEDS: Ensure Plus High Protein 120 ML LIQUID PO ×3 (08:51→17:43)
[2025-01-12] MEDS: Fluticasone/Salmeterol 232-14 Inhaler 1 PUFF INHALATION ×2 (08:52→20:54)
[2025-01-12] MEDS: Thiamine Hydrochloride 100 MG Tablet PO (08:52)
[2025-01-12] MEDS: APIXABAN 5 MG TABLET PO ×2 (08:52→20:54)
[2025-01-12] MEDS: Senna/Docusate Sodium 1 Tablet PO ×2 (08:52→20:54)
[2025-01-12 09:00] VITALS: BMI 24.8
--- NOTE | 2025-01-12 14:59 | CASEMGMT ---
Social Work SW received a call from dtr, Nayeli, requesting update on pt and DC timeframe. SW provided update from IDT UR this date. IDT is recommending pt has 24/7 supervision for safety and assistance with cognitive tasks. Pt is SBA, but not independent, and [place] for toileting and LE ADLs. Dtr stated is home with pt, and two children live yards away, while Nayeli is 30 mins away. SW confirmed that is limited with ability to assist pt. Dtr confirmed, though is home with pt. SW noted 's presence, though, stressed from therapy the importance of not leaving pt alone d/t his cognition. For example, if is in the kitchen and pt is in the living room and has to use the restroom, he will get up on his own and start walking to the restroom. Recommendations are for SBA, thus not being alone without the presence of another person at pt's side. Dtr expressed better understanding of the recommendations. SW offered for family to attend therapy session to visualize pt's needs and ensure can meet those needs. Dtr agreed. Dtr to speak with and other children on recommendations. Dtr inquired about timeframe for DC and duration of recommendations. SW explained after pt is home and family and HHC evaluate pt's needs, they can reassess the recommendations for 24/7 supervision, and taper off, but to start with more care than less to assist in preventing falls/injury. Offered for family to attend therapy training this week, then likely DC next week. Dtr expressed understanding and will speak with family and notify this worker of preferences. SW will assist with ongoing DC planning. Mary Kraus MSW SOAKERS SUPERVISOR
[2025-01-12 17:41] VITALS: BP 151/72; PULSE 71
--- NOTE | 2025-01-12 18:38 | NURSING ---
When patient bladder scanned this morning nurse experienced difficulties with obtaining accurate measurement. Patient bladder scanned for approx. >723 and approx. >556 on two attempts after patient was up to BR. Patient stood at bedside to attempted to empty more urine from bladder. Patient was able to void 400 in urinal. Patient bladder scanned after voiding for approx. 400ml in bladder. Patient expressed that he did not want burrell catheter placed at this time. Nursing continued to monitor. Patient bladder scanned this evening after patient was up to BR. 250ml was scanned in bladder. Will continue voiding trial at this time. Patient appreciative. No further needs at this time. Call light within reach.
[2025-01-12 19:30] VITALS: PULSE 78; RESP 18
[2025-01-12 20:30] VITALS: RESP 17
[2025-01-12 20:42] VITALS: BP 96/59; PULSE 62; RESP 16; TEMP 37.3; O2SAT 96
[2025-01-12] MEDS: Latanoprost 0.005% 1 Bottle 1 DRP EACH EYE (20:54)
--- NOTE | 2025-01-13 03:33 | NURSING ---
Patient bladder scan result of 614 ml. Patient has already failed more than 3 attempts of voiding trials, which he is aware. Per dayshift, patient refused insertion of burrell after the third failed trial. This nurse and JOSE James, spoke with patient regarding the complications of retention in the bladder. Patient verbalized understanding by saying, I know it's bad, and nodding. Patient believes he is discharging soon regardless of recent note per SW saying it would potentially be next week. Patient refuses insertion of burrell regardless of attempts to educate patient on severe complications of bladder retention, however agreed to straight catheterization to empty urine from bladder. Straight catheterization performed by this nurse using sterile technique, resulting in removal of 800ml of urine. Patient tolerated well. This patient agreed to discuss insertion of burrell tomorrow at the time of next voiding trial. Continue to educate patient. Patient denies further assistance at this time. Call light in reach.
[2025-01-13 05:48] LABS: Hematocrit 35.8 % (40-54); Hemoglobin 11.6 g/dL (13.0-16.5); Immature Granulocytes Count 0.010 X10^3/uL (0.0-0.0); Mean Corp Hgb Conc 32.4 g/dL (32-36); Mean Corpuscular Volume 99.2 fL (80-94); Mean Platelet Vol. 12.2 fl (6.2-12.0); NRBC Flagged by Analyzer 0 % (0-5); Platelet Count 154 K/mm3 (150-450); RBC Distribution Width CV 14.7 % (11.6-14.6); RBC Distribution Width SD 53.5 fl (35.1-43.9); Red Blood Count 3.61 M/mm3 (4.6-6.2); White Blood Count 4.8 K/mm3 (4.4-11.0)
[2025-01-13 06:35] LABS: Anion Gap 8 (5-15); BUN 14 mg/dL (4-19); BUN/Creat Ratio 20.4 RATIO (10-20); Calcium,Total 9.0 mg/dL (7.6-11.0); Carbon Dioxide 28.5 mmol/L (21.0-32.0); Chloride 100 mmol/L (98-108); Estimated Creatinine Clearance 67.51 ml/min (50-250); Glucose 85 mg/dL (70-99); Potassium 5.0 mmol/L (3.3-5.1)
[2025-01-13 06:46] VITALS: PULSE 71; RESP 17; O2SAT 98
--- NOTE | 2025-01-13 08:25 | NURSING ---
Off floor to appt with Terri Milligan NP via WC, accompanied by dtr.
[2025-01-13] MEDS: Ensure Plus High Protein 120 ML LIQUID PO ×3 (09:37→16:44)
[2025-01-13] MEDS: Thiamine Hydrochloride 100 MG Tablet PO (09:38)
[2025-01-13] MEDS: Fluticasone/Salmeterol 232-14 Inhaler 1 PUFF INHALATION ×2 (09:39→20:43)
[2025-01-13] MEDS: APIXABAN 5 MG TABLET PO ×2 (09:39→20:42)
[2025-01-13] MEDS: Senna/Docusate Sodium 1 Tablet PO ×2 (09:39→20:43)
[2025-01-13 09:45] VITALS: BP 139/95; PULSE 77; RESP 17; TEMP 36.6; O2SAT 95
--- NOTE | 2025-01-13 12:04 | NURSING ---
Pt refused Scott pt has been straight cathed several times bladder scanned >549ml . Pt straight cathed using sterile technique 650ml clear yellow urine drained. Will continue to bladder scan q8hr.
[2025-01-13 16:52] VITALS: BP 116/64; PULSE 80
[2025-01-13 20:05] VITALS: PULSE 71; RESP 18; O2SAT 97
[2025-01-13] MEDS: Latanoprost 0.005% 1 Bottle 1 DRP EACH EYE (20:42)
[2025-01-14 07:48] VITALS: BP 127/78; PULSE 65; RESP 20; TEMP 37; O2SAT 94
[2025-01-14 07:54] VITALS: PULSE 78; RESP 18; O2SAT 94
[2025-01-14] MEDS: Ensure Plus High Protein 120 ML LIQUID PO ×3 (07:56→17:26)
[2025-01-14] MEDS: Fluticasone/Salmeterol 232-14 Inhaler 1 PUFF INHALATION ×2 (08:26→21:29)
[2025-01-14] MEDS: Senna/Docusate Sodium 1 Tablet PO ×2 (08:28→21:30)
[2025-01-14] MEDS: Thiamine Hydrochloride 100 MG Tablet PO (08:28)
[2025-01-14] MEDS: APIXABAN 5 MG TABLET PO ×2 (08:28→21:29)
[2025-01-14] MEDS: Magnesium Citrate 300 ML PO (15:10)
[2025-01-14 17:27] VITALS: BP 142/70; PULSE 73
[2025-01-14 19:24] VITALS: TEMP 36.9
--- NOTE | 2025-01-14 20:30 | NURSING ---
c/o feeling blah, no desire to do anything, just tired. Pt states he has felt this way since he took the magnesium citrate and prune juice, offered pt BR, pt declined. Assisted pt to side of bed, nurse administered medications. Advised pt to try and eat a little of his dinner, nurse will return to check on him. Nurse returned pt was in bed sleeping.
[2025-01-14] MEDS: Latanoprost 0.005% 1 Bottle 1 DRP EACH EYE (21:31)
[2025-01-15 08:30] VITALS: BP 122/75; PULSE 80; RESP 16; TEMP 36.3; O2SAT 90
[2025-01-15] MEDS: APIXABAN 5 MG TABLET PO ×2 (08:37→20:16)
[2025-01-15] MEDS: Fluticasone/Salmeterol 232-14 Inhaler 1 PUFF INHALATION ×2 (08:37→20:16)
[2025-01-15] MEDS: Ensure Plus High Protein 120 ML LIQUID PO ×3 (08:37→18:32)
[2025-01-15] MEDS: Thiamine Hydrochloride 100 MG Tablet PO (08:38)
--- NOTE | 2025-01-15 12:02 | CASEMGMT ---
Social Work SW received VM from dtr, Olivia, requesting to set a DC date. SW returned call and set date for 01/19. Offered HHC vs OP. Dtr prefers HHC. SW offered list of skilled HHC agencies within geographical area, INN with insurance, that include quality and resource data via [employer] guide. Dtr agreed via text link and will notify SW of choices. SW educated HHC agency will contact pt for SOC date date, but typically 2-3 days after DC, pending PCP signing orders. SW confirmed pt will need FWW at DC. SW to coordinate through [facility] and have that delivered to the pt's room prior to DC. Dtr appreciative and will transport home between -. Dtr inquired about new burrell and training. SW transferred phone call to nursing to arrange training, but educated dtr that [facility] will assist in management and training. Dtr appreciative. - SW sent referral to [employer] via [employer]. Plan: DC home with 01/19, HHC PT/OT/SN, FWW Mary Kraus [employer]
--- NOTE | 2025-01-15 14:57 | DS.PCM_ITS ---
Providers Date of Admission: 12/29/24 Primary Care Physician: Dr. 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 - Occlusion and stenosis of basilar artery (5) COPD exacerbation: Status: Chronic Code(s): J44.1 - Chronic obstructive pulmonary disease with (acute) exacerbation (6) UTI (urinary tract infection): Status: Acute Code(s): N39.0 - Urinary tract infection, site not specified (7) Atrial fibrillation: Status: Inactive Qualifiers: Atrial fibrillation type: persistent Qualified Code(s): I48.1 - Persistent atrial fibrillation (8) Glaucoma: Status: Acute Code(s): H40.9 - Unspecified glaucoma (9) Allergic rhinitis: Status: Acute Code(s): J30.9 - Allergic rhinitis, unspecified (10) Hypomagnesemia: Status: Acute Code(s): E83.42 - Hypomagnesemia (11) Anxiety: Status: Acute Code(s): F41.9 - Anxiety disorder, unspecified (12) Essential (primary) hypertension: Status: Acute Code(s): I10 - Essential (primary) hypertension (13) Alcohol use: Status: Acute Code(s): F10.90 - Alcohol use, unspecified, uncomplicated (14) Tobacco abuse: Status: Acute Code(s): Z72.0 - Tobacco use Plan 84 year old male with below past medical history 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 * Debility - PT/OT. * Dysphagia - ST. * Pain - Tylenol 1000mg q6 prn pain (1-10). * Bowel - senna/colace 1 tablet bid, Magnesium citrate 300mL daily prn. * Adult immunization - Administer pneumonia vaccine, covid vaccine, flu vaccine as appropriate. * DVT prophylaxis - Eliquis. * COPD - Fluticasone/Salmeterol 232-14 1 puff bid, Albuterol 2.5mg q6 prn. * Atrial fibrillation - Eliquis 5mg bid. * Hyperlipidemia - Atorvastatin 40mg qhs. * UTI - Keflex 500mg bid thru 12/31/2024. * Alcohol abuse - Thiamine 100mg daily, Folic acid 1mg daily. * Tobacco abuse - Nicotine 14mg td daily. * Glaucoma - Latanoprost 1gtt ou qhs. * Hypertension - Lisinopril 10mg am, 5mg qhs. * Nutrition - MVI 1 tablet daily. * BPH - Tamsulosin 0,8mg daily. Medications at Discharge Home Medications albuterol sulfate 90 mcg/actuation aerosol inhaler 1 puff IH Q8 PRN SOB 04/25/15 carvedilol 12.5 mg tablet 12.5 mg PO BID.TCU Blood pressure 04/05/20 carvedilol 25 mg tablet (Coreg) 25 mg PO QAM 04/05/20 bimatoprost 0.01 % eye drops 1 drp ophthalmic (eye) QPM 10/17/20 calcium citrate 250 mg PO BID 10/17/20 fluorometholone 0.1 % eye drops,suspension 1 drp ophthalmic (eye) QWEEK 10/17/20 fluticasone propionate 50 mcg/actuation nasal spray,suspension (Children's Flonase Allergy Relief) 2 spray intranasal DAILY PRN Congestion 10/17/20 magnesium oxide 400 mg (241.3 mg magnesium) tablet 400 mg PO BID dificiency 10/17/20 multivitamin 1 tablet PO DAILY vitamin 10/17/20 duloxetine 20 mg capsule,delayed release 20 mg PO DAILY PRN Anxiety 11/24/20 lisinopril 10 mg tablet 10 mg PO DAILY blood pressure #30 tabs 06/13/22 fluticasone furoate 200 mcg/actuation blister powder for inhalation (Arnuity Ellipta) 1 inh inhalation QDAY #30 ea 06/18/23 ipratropium bromide 0.02 % solution for inhalation 0.5 mg (2.5 mL) inhalation Q6H PRN Wheezing #150 mL 06/25/23 apixaban 5 mg tablet 5 mg PO BID #60 tabs 12/15/24 albuterol sulfate 2.5 mg/3 mL (0.083 %) solution for nebulization 2.5 mg inhalation Q6H PRN PRN Wheezing 12/29/24 apixaban 5 mg tablet (Eliquis) 5 mg PO BID Blood Thinner 12/29/24 atorvastatin 40 mg tablet (Lipitor) 40 mg PO QHS Cholesterol 12/29/24 cephalexin 500 mg capsule 500 mg PO BID antibiotic 12/29/24 folic acid 1 mg tablet 1 mg PO DAILY supplement 12/29/24 lisinopril 5 mg tablet 5 mg PO QHS blood pressure 12/29/24 mometasone-formoterol HFA 100 mcg-5 mcg/actuation aerosol inhaler (Dulera) 2 inh inhalation BID COPD 12/29/24 nicotine 14 mg/24 hr daily transdermal patch (Nicoderm CQ) 1 patch transdermal DAILY smoker 12/29/24 tamsulosin 0.4 mg capsule (Flomax) 0.8 mg PO DAILY Prostate 12/29/24 thiamine HCl (vitamin B1) 100 mg tablet 100 mg PO DAILY vitamin 12/29/24 prednisone 10 mg tablet 10 mg PO QDAY #90 tabs 01/13/25 Hospital Course Operations None Procedures None Summary of Care Provided Minutes Spent on Discharge: 35 Hospital Course: 84 year old male with below past medical history 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 Discharge home with 01/20/2025, [facility] PT/OT/SN, FWW. FWW: Patient is unsafe to use a cane and requires a walker for ambulation in the home and the community. Weight / BMI Weight Weight: 76.204 kg Body Mass Index (BMI) 24.8 ABG / Lab / Microbiology Data 01/13/25 05:06 01/13/25 05:06 Microbiology: Microbiology 12/31/24 11:44 Urine, Catheterized Urine Culture - Final Culture exhibits no growth. D/C Instructions Please Follow Up With: Saida Milligan PATIENT ACCOUNTS CLERK Discharge Plan Admission Admit Date/Time: 12/29/24 13:55 Attending Provider: Bharath Brown Chi Primary Care Provider: Marcos Lam Discharge Orders/Prescriptions Prescriptions: No Action carvedilol [Coreg] 25 mg tablet 25 mg PO QAM carvedilol 12.5 mg tablet 12.5 mg PO BID.TCU fluticasone propionate [Children's Flonase Allergy Rlf] 50 mcg/actuation spray,suspension 2 spray INTRANASAL DAILY PRN (Reason: Congestion) Rx Instructions: administer into each nostril multivitamin Tablet 1 tablet PO DAILY calcium citrate 250 mg calcium tablet 250 mg PO BID fluorometholone 0.1 % drops,suspension 1 drp OPHTHALMIC QWEEK bimatoprost 0.01 % drops 1 drp OPHTHALMIC QPM Patient Comments: INSTILL 1 DROP INTO EACH EYE AT BEDTIME duloxetine 20 mg capsule,delayed release(DR/EC) 20 mg PO DAILY PRN (Reason: Anxiety) Patient Comments: TAKE 1 CAPSULE BY MOUTH ONCE DAILY lisinopril 10 mg tablet 10 mg PO DAILY Qty: 30 8RF prednisone 10 mg tablet 10 mg PO QDAY Qty: 90 3RF albuterol sulfate 6.7 GM HFA aerosol inhaler 1 puff IH Q8 PRN (Reason: SOB) Patient Comments: shortness of breath magnesium oxide 400 mg (241.3 mg magnesium) tablet 400 mg PO BID Patient Comments: supplement atorvastatin [Lipitor] 40 mg tablet 40 mg PO QHS cephalexin 500 mg capsule 500 mg PO BID Rx Instructions: x2 days folic acid 1 mg tablet 1 mg PO DAILY lisinopril 5 mg tablet 5 mg PO QHS Dulera 100-5 mcg/actuation HFA aerosol inhaler 2 inh inhalation BID nicotine [Nicoderm CQ] 14 mg/24 hr patch 24 hour 1 patch transdermal DAILY tamsulosin [Flomax] 0.4 mg capsule 0.8 mg PO DAILY Eliquis 5 mg tablet 5 mg PO BID thiamine HCl (vitamin B1) 100 mg tablet 100 mg PO DAILY albuterol sulfate 2.5 mg /3 mL (0.083 %) solution for nebulization 2.5 mg INHALATION Q6H PRN PRN (Reason: Wheezing) Arnuity Ellipta 200 mcg/actuation blister with device 1 inh inhalation QDAY Qty: 30 6RF Rx Instructions: administer at approximately the same time(s) each day ipratropium bromide 0.02 % solution 0.5 mg INHALATION Q6H PRN (Reason: Wheezing) Qty: 150 6RF apixaban 5 mg tablet 5 mg PO BID Qty: 60 11RF Referrals / Follow Up: Marcos Lam MD [Primary Care Provider] - Lorne Martinez MD [Med Staff - Active Staff] - (F/U for urinary retention ) Disposition Disposition (needs filled in before D/C Order can be placed): Home Health Service
--- NOTE | 2025-01-15 14:57 | PCM.DC.SUM ---
Providers Date of Admission: 12/29/24 Primary Care Physician: Dr. 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 - Occlusion and stenosis of basilar artery (5) COPD exacerbation: Status: Chronic Code(s): J44.1 - Chronic obstructive pulmonary disease with (acute) exacerbation (6) UTI (urinary tract infection): Status: Acute Code(s): N39.0 - Urinary tract infection, site not specified (7) Atrial fibrillation: Status: Inactive Qualifiers: Atrial fibrillation type: persistent Qualified Code(s): I48.1 - Persistent atrial fibrillation (8) Glaucoma: Status: Acute Code(s): H40.9 - Unspecified glaucoma (9) Allergic rhinitis: Status: Acute Code(s): J30.9 - Allergic rhinitis, unspecified (10) Hypomagnesemia: Status: Acute Code(s): E83.42 - Hypomagnesemia (11) Anxiety: Status: Acute Code(s): F41.9 - Anxiety disorder, unspecified (12) Essential (primary) hypertension: Status: Acute Code(s): I10 - Essential (primary) hypertension (13) Alcohol use: Status: Acute Code(s): F10.90 - Alcohol use, unspecified, uncomplicated (14) Tobacco abuse: Status: Acute Code(s): Z72.0 - Tobacco use Plan 84 year old male with below past medical history 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 Debility - PT/OT. Dysphagia - ST. Pain - Tylenol 1000mg q6 prn pain (1-10). Bowel - senna/colace 1 tablet bid, Magnesium citrate 300mL daily prn. Adult immunization - Administer pneumonia vaccine, covid vaccine, flu vaccine as appropriate. DVT prophylaxis - Eliquis. COPD - Fluticasone/Salmeterol 232-14 1 puff bid, Albuterol 2.5mg q6 prn. Atrial fibrillation - Eliquis 5mg bid. Hyperlipidemia - Atorvastatin 40mg qhs. UTI - Keflex 500mg bid thru 12/31/2024. Alcohol abuse - Thiamine 100mg daily, Folic acid 1mg daily. Tobacco abuse - Nicotine 14mg td daily. Glaucoma - Latanoprost 1gtt ou qhs. Hypertension - Lisinopril 10mg am, 5mg qhs. Nutrition - MVI 1 tablet daily. BPH - Tamsulosin 0,8mg daily. Medications at Discharge Home Medications albuterol sulfate 90 mcg/actuation aerosol inhaler 1 puff IH Q8 PRN SOB 04/25/15 bimatoprost 0.01 % eye drops 1 drp ophthalmic (eye) QPM 10/17/20 calcium citrate 250 mg PO BID 10/17/20 magnesium oxide 400 mg (241.3 mg magnesium) tablet 400 mg PO BID dificiency 10/17/20 multivitamin 1 tablet PO DAILY vitamin 10/17/20 lisinopril 10 mg tablet 10 mg PO DAILY blood pressure #30 tabs 06/13/22 ipratropium bromide 0.02 % solution for inhalation 0.5 mg (2.5 mL) inhalation Q6H PRN Wheezing #150 mL 06/25/23 albuterol sulfate 2.5 mg/3 mL (0.083 %) solution for nebulization 2.5 mg inhalation Q6H PRN PRN Wheezing 12/29/24 apixaban 5 mg tablet (Eliquis) 5 mg PO BID Blood Thinner 12/29/24 folic acid 1 mg tablet 1 mg PO DAILY supplement 12/29/24 mometasone-formoterol HFA 100 mcg-5 mcg/actuation aerosol inhaler (Dulera) 2 inh inhalation BID COPD 12/29/24 atorvastatin 40 mg tablet 40 mg PO QHS 30 days #30 tabs 01/15/25 baclofen 10 mg tablet 5 mg (1/2 x 10 mg) PO TID PRN Muscle Spasm 30 days #90 tabs 01/15/25 carvedilol 12.5 mg tablet 12.5 mg PO BIDCM 30 days #60 tabs 01/15/25 finasteride 5 mg tablet 5 mg PO DAILY 30 days #30 tabs 01/15/25 lisinopril 5 mg tablet 5 mg PO QHS 30 days #30 tabs 01/15/25 prednisone 10 mg tablet 10 mg PO BREAKFAST 30 days #30 tabs 01/15/25 tamsulosin 0.4 mg capsule 0.8 mg (2 x 0.4 mg) PO DAILY 30 days #60 caps 01/15/25 thiamine HCl (vitamin B1) 100 mg tablet 100 mg PO DAILY 30 days #30 tabs 01/15/25 Hospital Course Operations None Procedures None Summary of Care Provided Minutes Spent on Discharge: 35 Hospital Course: 84 year old male with below past medical history 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 Discharge home with 01/20/2025, [facility] PT/OT/SN, FWW. FWW: Patient is unsafe to use a cane and requires a walker for ambulation in the home and the community. Physical Exam Const alert General Appearance: cooperative HEENT normocephalic Eyes PERRL and EOMs intact bilaterally Neck supple, no JVD and no carotid bruits Resp normal respiratory effort, normal air movement and clear to auscultation bilaterally Cardio regular rate and regular rhythm GI normal to inspection, nondistended, normoactive bowel sounds, non-tender and non-distended Extremity normal capillary refill General Extremity: Negative for edema Skin no rashes or lesions noted General Skin Exam: no breakdown Psych affect normal Appearance: appropriate Weight / BMI Weight Weight: 76.204 kg Body Mass Index (BMI) 24.8 ABG / Lab / Microbiology Data 01/13/25 05:06 01/13/25 05:06 Microbiology: Microbiology 12/31/24 11:44 Urine, Catheterized Urine Culture - Final Culture exhibits no growth. D/C Instructions Discharge Diet: No restrictions Discharge Activity: Return to Normal Activity, May Drive and Use Walker Weight Bearing Status: Weight bearing as tolerated Call your doctor if you observe: Fever of 101 or Higher, Inability to urinate, Inability to have a bowel movement, Shortness of breath, Dizziness, Fainting spells, Swelling in the ankles, Chest pain and Uncontrolled pain DC O2, CPAP, BIPAP Needs Home O2 Discharge instructions: No Additional Instructions: Discharge home with 01/20/2025, [facility] PT/OT/SN, FWW. FWW: Patient is unsafe to use a cane and requires a walker for ambulation in the home and the community. Please Follow Up With: Saida Milligan CNP When: As scheduled. Meaningful Use Info Meaningful Use Meaningful Use Diagnoses (Choose all that apply): None applicable Discharge Plan Admission Admit Date/Time: 12/29/24 13:55 Primary Reason for Your Visit: Debility. Attending Provider: Bharath Brown Chi Primary Care Provider: Marcos Lam Instructions Additional Instructions / Restrictions: Discharge home with 01/20/2025, [facility] PT/OT/SN, FWW. FWW: Patient is unsafe to use a cane and requires a walker for ambulation in the home and the community. Discharge Orders/Prescriptions Prescriptions: New atorvastatin 40 mg Tablet 40 mg PO QHS 30 Days Qty: 30 0RF prednisone 10 mg Tablet 10 mg PO BREAKFAST 30 Days Qty: 30 0RF carvedilol 12.5 mg Tablet 12.5 mg PO BIDCM 30 Days Qty: 60 0RF thiamine HCl (vitamin B1) 100 mg Tablet 100 mg PO DAILY 30 Days Qty: 30 0RF tamsulosin 0.4 mg Capsule 0.8 mg PO DAILY 30 Days Qty: 60 0RF baclofen 10 mg Tablet 5 mg PO TID PRN (Reason: Muscle Spasm) 30 Days Qty: 90 0RF lisinopril 5 mg Tablet 5 mg PO QHS 30 Days Qty: 30 0RF finasteride 5 mg Tablet 5 mg PO DAILY 30 Days Qty: 30 0RF Continued multivitamin Tablet 1 tablet PO DAILY calcium citrate 250 mg calcium tablet 250 mg PO BID bimatoprost 0.01 % drops 1 drp OPHTHALMIC QPM Patient Comments: INSTILL 1 DROP INTO EACH EYE AT BEDTIME lisinopril 10 mg tablet 10 mg PO DAILY Qty: 30 8RF albuterol sulfate 6.7 GM HFA aerosol inhaler 1 puff IH Q8 PRN (Reason: SOB) Patient Comments: shortness of breath folic acid 1 mg tablet 1 mg PO DAILY Dulera 100-5 mcg/actuation HFA aerosol inhaler 2 inh inhalation BID Eliquis 5 mg tablet 5 mg PO BID albuterol sulfate 2.5 mg /3 mL (0.083 %) solution for nebulization 2.5 mg INHALATION Q6H PRN PRN (Reason: Wheezing) ipratropium bromide 0.02 % solution 0.5 mg INHALATION Q6H PRN (Reason: Wheezing) Qty: 150 6RF Discontinued carvedilol [Coreg] 25 mg tablet 25 mg PO QAM carvedilol 12.5 mg tablet 12.5 mg PO BID.TCU fluticasone propionate [Children's Flonase Allergy Rlf] 50 mcg/actuation spray,suspension 2 spray INTRANASAL DAILY PRN (Reason: Congestion) Rx Instructions: administer into each nostril fluorometholone 0.1 % drops,suspension 1 drp OPHTHALMIC QWEEK duloxetine 20 mg capsule,delayed release(DR/EC) 20 mg PO DAILY PRN (Reason: Anxiety) Patient Comments: TAKE 1 CAPSULE BY MOUTH ONCE DAILY prednisone 10 mg tablet 10 mg PO QDAY Qty: 90 3RF atorvastatin [Lipitor] 40 mg tablet 40 mg PO QHS cephalexin 500 mg capsule 500 mg PO BID Rx Instructions: x2 days lisinopril 5 mg tablet 5 mg PO QHS nicotine [Nicoderm CQ] 14 mg/24 hr patch 24 hour 1 patch transdermal DAILY tamsulosin [Flomax] 0.4 mg capsule 0.8 mg PO DAILY thiamine HCl (vitamin B1) 100 mg tablet 100 mg PO DAILY Arnuity Ellipta 200 mcg/actuation blister with device 1 inh inhalation QDAY Qty: 30 6RF Rx Instructions: administer at approximately the same time(s) each day apixaban 5 mg tablet 5 mg PO BID Qty: 60 11RF No Action magnesium oxide 400 mg (241.3 mg magnesium) tablet 400 mg PO BID Patient Comments: supplement Referrals / Follow Up: Marcos Lam MD [Primary Care Provider] - Lorne Martinez MD [Med Staff - Active Staff] - Within 1 Month (F/U for urinary retention ) Disposition Disposition (needs filled in before D/C Order can be placed): Home Health Service
--- NOTE | 2025-01-15 15:00 | NURSING ---
Patient c/o head and neck soreness and pain with therapy. Patient has not c/o this previously. Patient also had episode of a silent migraine. Updated Dr. Brown. New order entered by Dr. Brown for Baclofen.
[2025-01-15 18:28] VITALS: BP 141/74; PULSE 71
[2025-01-15 19:44] VITALS: PULSE 83; RESP 20; O2SAT 96
[2025-01-15] MEDS: Senna/Docusate Sodium 1 Tablet PO (20:16)
[2025-01-15] MEDS: Latanoprost 0.005% 1 Bottle 1 DRP EACH EYE (20:17)
[2025-01-16] MEDS: Ensure Plus High Protein 120 ML LIQUID PO ×3 (09:01→17:03)
[2025-01-16] MEDS: APIXABAN 5 MG TABLET PO ×2 (09:04→20:48)
[2025-01-16] MEDS: Thiamine Hydrochloride 100 MG Tablet PO (09:04)
[2025-01-16] MEDS: Senna/Docusate Sodium 1 Tablet PO (09:04)
[2025-01-16] MEDS: Fluticasone/Salmeterol 232-14 Inhaler 1 PUFF INHALATION ×2 (09:05→20:48)
[2025-01-16 09:52] VITALS: PULSE 88; RESP 18
[2025-01-16 15:50] VITALS: BP 101/55; PULSE 68; RESP 18; TEMP 36.4; O2SAT 93
[2025-01-16] MEDS: Latanoprost 0.005% 1 Bottle 1 DRP EACH EYE (20:48)
[2025-01-16 20:50] VITALS: BP 139/84; PULSE 84
[2025-01-16 23:51] VITALS: PULSE 84; RESP 20
[2025-01-16] MEDS: Albuterol 2.5 MG/3 ML VIAL.NEB. INHALATION (23:51)
[2025-01-17 07:24] VITALS: O2SAT 96
[2025-01-17] MEDS: Ensure Plus High Protein 120 ML LIQUID PO ×2 (09:11→17:18)
[2025-01-17] MEDS: APIXABAN 5 MG TABLET PO ×2 (09:15→20:09)
[2025-01-17] MEDS: Thiamine Hydrochloride 100 MG Tablet PO (09:15)
[2025-01-17] MEDS: Fluticasone/Salmeterol 232-14 Inhaler 1 PUFF INHALATION ×2 (09:16→20:09)
[2025-01-17 14:22] VITALS: BP 117/66; PULSE 77; RESP 18; TEMP 36.8; O2SAT 96
[2025-01-17] MEDS: Senna/Docusate Sodium 1 Tablet PO (20:09)
[2025-01-17] MEDS: Latanoprost 0.005% 1 Bottle 1 DRP EACH EYE (20:09)
[2025-01-17 20:30] VITALS: PULSE 72; RESP 20
[2025-01-18] VITALS (8 sets, daily range): BP systolic 95–140; BP diastolic 59–70; PULSE 56–89; RESP 16–26; TEMP 36.4; O2SAT 91–97
[2025-01-18] MEDS: Ensure Plus High Protein 120 ML LIQUID PO ×3 (08:42→17:47)
[2025-01-18] MEDS: APIXABAN 5 MG TABLET PO ×2 (08:43→20:28)
[2025-01-18] MEDS: Fluticasone/Salmeterol 232-14 Inhaler 1 PUFF INHALATION ×2 (08:44→20:26)
[2025-01-18] MEDS: Senna/Docusate Sodium 1 Tablet PO ×2 (08:44→20:27)
[2025-01-18] MEDS: Thiamine Hydrochloride 100 MG Tablet PO (08:45)
--- NOTE | 2025-01-18 10:54 | CASEMGMT ---
Social Work SW received call from dtr, Nayeli, confirming DC plans. SW confirmed DC homoe 01/19 as planned, and family needs to provide choice for skilled HHC. Dtr selected [facility] and prefers sister Olivia, be called for SOC. SW confirmed. - SW phoned referral to [facility]. Mary VELARDEW
--- NOTE | 2025-01-18 16:07 | NURSING ---
JACKSON TEACHING DONE WITH PT AND DAUGHTER. PT AND DAUGHTER STATED THEY UNDERSTOOD. CONTINUE TEACHING BEFORE D/C. AND GIVE LEG BAG WITH TEACHING AT D/C.
[2025-01-18] MEDS: Albuterol 2.5 MG/3 ML VIAL.NEB. INHALATION (17:10)
[2025-01-18] MEDS: Latanoprost 0.005% 1 Bottle 1 DRP EACH EYE (20:27)
[2025-01-19 05:44] VITALS: PULSE 71; RESP 16; O2SAT 96
[2025-01-19] MEDS: Ensure Plus High Protein 120 ML LIQUID PO ×2 (09:19→11:57)
[2025-01-19] MEDS: APIXABAN 5 MG TABLET PO (09:21)
[2025-01-19] MEDS: Fluticasone/Salmeterol 232-14 Inhaler 1 PUFF INHALATION (09:22)
[2025-01-19] MEDS: Thiamine Hydrochloride 100 MG Tablet PO (09:22)
[2025-01-19] MEDS: Senna/Docusate Sodium 1 Tablet PO (09:23)
[2025-01-19 09:30] VITALS: BP 121/53; PULSE 75; RESP 18; TEMP 36.3; O2SAT 94
[2025-01-19 09:53] VITALS: PULSE 82; RESP 20
--- NOTE | 2025-01-19 10:29 | CASEMGMT ---
Social Work SW completed BIMS (04/21) and PHQ-2 () for MDS assessment. Mary Kraus ENGINEERING TECHNICIAN MAINTENANCE WORKER SWIMMING POOL
== END 2025-01-19 13:15 | disposition home health service (06) | DRG 57 ==
PROVIDERS: Admitting Provider Family Medicine Geriatric Medicine; PCP Family Medicine; Referring Provider Family Medicine Geriatric Medicine; Visit Provider Family Medicine Geriatric Medicine
DX: I69.828 Other speech and language deficits following other cerebrovascular disease (principal); J44.1 Chronic obstructive pulmonary disease with (acute) exacerbation; I50.32 Chronic diastolic (congestive) heart failure; I48.19 Other persistent atrial fibrillation; N39.0 Urinary tract infection, site not specified; I11.0 Hypertensive heart disease with heart failure; F10.10 Alcohol abuse, uncomplicated; I69.892 Facial weakness following other cerebrovascular disease; E78.5 Hyperlipidemia, unspecified; F17.210 Nicotine dependence, cigarettes, uncomplicated; J30.9 Allergic rhinitis, unspecified; E83.42 Hypomagnesemia; K21.9 Gastro-esophageal reflux disease without esophagitis; F41.9 Anxiety disorder, unspecified; M62.838 Other muscle spasm; Z79.01 Long term (current) use of anticoagulants; F40.01 Agoraphobia with panic disorder; Z79.51 Long term (current) use of inhaled steroids; H40.9 Unspecified glaucoma; N40.1 Benign prostatic hyperplasia with lower urinary tract symptoms; R33.8 Other retention of urine; Z99.81 Dependence on supplemental oxygen; Z79.899 Other long term (current) drug therapy
CPT/HCPCS: 36415; 80048; 80061; 81001; 85014; 85018; 85025; 87086; 92507; 92523; 92526; 92610; 94640; 97110; 97116; 97162; 97166; 97530; 97535; 97802; 99406

== ENCOUNTER → 2025-01-27 | Outpatient (CLI) | payer MEDICARE, OTHER, SELFPAY ==
--- NOTE | 2025-01-27 14:03 | US_ITS ---
PROCEDURE: KIDNEY AND BLADDER 01/27/2025 REASON FOR EXAM: URINE RETENTION TECHNIQUE: KIDNEY AND BLADDER. Standard longitudinal and transverse 2D grayscale, duplex Doppler and color duplex images were obtained of the kidneys and bladder. COMPARISON: CT Abdomen and Pelvis w/Contrast, 02/23/2021 US Abdomen Complete, 03/19/2020 FINDINGS: RIGHT KIDNEY Size: Normal measuring 11.0 x 5.7 x 6.3 cm. Echogenicity: Normal. Parenchymal thickness: Normal. Hydronephrosis: None. Calculi: None. Cysts: None. Solid masses: None. Other: Trace perinephric fluid. LEFT KIDNEY Size: Normal measuring 11.4 x 5.2 x 6.0 cm Echogenicity: Normal. Parenchymal thickness: Normal. Hydronephrosis: None. Calculi: None. Cysts: Anechoic 0.8 x 0.6 x 0.8 cm superior pole cyst.. Other: Trace perinephric fluid. BLADDER: Scott decompressed urinary bladder with diffuse wall thickening of 1.8 cm. The ureteral jets are not visualized. PROSTATE: Heterogeneous and enlarged measuring 7.4 x 6.5 x 7.5 cm with a volume of 190.2 mL. Increased internal vascularity. OTHER: None. US/Kidney and Bladder IMPRESSION: 1. Diffuse wall thickening of the bladder, possibly from decompressed state, c hanges from chronic outlet obstruction, or acute cystitis. 2. Enlarged heterogeneous prostate gland with hyperemia. Correlate with patie nt's PSA and clinically for signs of prostatitis. 3. Simple left renal cysts. Reading Location: [id number]
== END | disposition home or self-care (01) ==
LOC: US 13:59
PROVIDERS: PCP Family Medicine; Referring Provider Urology; Visit Provider Urology
DX: R33.9 Retention of urine, unspecified (principal)
CPT/HCPCS: 76770